=== PATIENT | female | born 1960 | race Caucasian/White ===

== ENCOUNTER → 2018-01-28 07:49 | Outpatient (CLI) | payer OTHER, SELFPAY ==
[2018-01-28 08:08] LABS: Add Manual Diff / Slide Review NO; Basophils Percent Auto 0.6 % (0-2); Eosinophils Percent Auto 3.2 % (2-4); Hematocrit 36.5 % (36-46); Hemoglobin 12.9 g/dL (12.0-16.0); Mean Corpuscular HGB Conc 35.4 % (30-36); Mean Corpuscular Hemoglobin 34.5 PG (26-34); Mean Corpuscular Volume 97.5 fL (80-100); Monocytes Percent Auto 10.4 % (3-14); Neutrophils Absolute Auto 3300 /uL (3000-5900); Neutrophils Percent Auto 57.8 % (50-75); Platelet Count 303 X10^3/uL (150-400); Red Blood Cell Count 3.75 X10^6/uL (4.0-5.2); Red Cell Distribution Width 12.2 % (11.6-14.8); White Blood Cell Count 5.7 X10^3/uL (4.5-11.0)
[2018-01-28 08:34] LABS: Alanine Aminotransferase 47 IU/L (9-52); Albumin 4.4 g/dL (3.5-5.0); Albumin Globulin Ratio 1.4 (1.0-2.8); Alkaline Phosphatase 63 U/L (38-126); Aspartate Aminotransferase 34 IU/L (14-36); Bilirubin Total 0.6 mg/dL (0.2-1.3); Calcium 9.6 mg/dL (8.4-10.2); Estimated Glomerular Filt Rate > 60.0 mL/min (>60); Globulin 3.2 g/dL (1.7-4.1); Glucose 92 mg/dL (70-100); HEMOLYSIS < 15 (0-50); Potassium 3.9 mmol/L (3.4-5.1); Sodium 138 mmol/L (137-145); Total Protein 7.6 g/dL (6.3-8.2)
[2018-01-29 16:39] LABS: Cancer Antigen 27.29 37 U/mL (< 38)
--- NOTE | 2018-02-16 12:12 | PC.NURSE ---
Call from patient. She saw Virgen in December and discussed possibly starting Tamoxifen. She is calling to notify Virgen that she has decided to go ahead with Tamoxifen. She will need a prescription sent to [facility] in [place]. Also, patient states she has no follow up appointment. Message in to Virgen requesting Tamoxifen Rx and follow up schedule.
--- NOTE | 2018-02-23 16:14 | PC.NURSE ---
Spoke with pt. She started her Tamoxifen today 02/23. Transferred her to scheduling to make appt to see Virgen in 6-8 weeks per Virgen's request.
== END ==
PROVIDERS: PCP Physician Assistant; Visit Provider Nurse Practitioner Gerontology
DX: C50.912 Malignant neoplasm of unspecified site of left female breast (principal)
CPT/HCPCS: 36415; 80053; 85025; 86300

== ENCOUNTER → 2018-04-14 07:51 | Outpatient (CLI) | payer OTHER, SELFPAY ==
[2018-04-14 08:06] LABS: Add Manual Diff / Slide Review NO; Basophils Percent Auto 0.7 % (0-2); Eosinophils Percent Auto 2.9 % (2-4); Hematocrit 36.1 % (36-46); Hemoglobin 12.7 g/dL (12.0-16.0); Lymphocytes Percent Auto 29.5 % (25-40); Mean Corpuscular HGB Conc 35.1 % (30-36); Mean Corpuscular Hemoglobin 34.6 PG (26-34); Mean Corpuscular Volume 98.6 fL (80-100); Monocytes Percent Auto 9.4 % (3-14); Neutrophils Absolute Auto 3400 /uL (3000-5900); Neutrophils Percent Auto 57.5 % (50-75); Platelet Count 289 X10^3/uL (150-400); Red Blood Cell Count 3.67 X10^6/uL (4.0-5.2); Red Cell Distribution Width 11.9 % (11.6-14.8)
[2018-04-14 08:41] LABS: Alanine Aminotransferase 40 IU/L (9-52); Albumin 4.2 g/dL (3.5-5.0); Albumin Globulin Ratio 1.4 (1.0-2.8); Alkaline Phosphatase 53 U/L (38-126); Aspartate Aminotransferase 32 IU/L (14-36); BUN Creatinine Ratio 17.8 (6-22); Bilirubin Total 0.6 mg/dL (0.2-1.3); Blood Urea Nitrogen 16 mg/dL (7-17); Calcium 9.4 mg/dL (8.4-10.2); Carbon Dioxide 28 mmol/L (22-32); Chloride 101 mmol/L (98-107); Estimated Glomerular Filt Rate > 60.0 mL/min (>60); Globulin 3.1 g/dL (1.7-4.1); Glucose 101 mg/dL (70-100); HEMOLYSIS < 15 (0-50); Potassium 4.3 mmol/L (3.4-5.1); Sodium 139 mmol/L (137-145); Total Protein 7.3 g/dL (6.3-8.2)
[2018-04-15 15:47] LABS: Cancer Antigen 27.29 39 U/mL (< 38)
== END ==
PROVIDERS: PCP Physician Assistant; Visit Provider Nurse Practitioner Gerontology
DX: C50.912 Malignant neoplasm of unspecified site of left female breast (principal)
CPT/HCPCS: 36415; 80053; 85025; 86300

== ENCOUNTER → 2018-05-09 07:35 | Outpatient (CLI) | payer OTHER, SELFPAY ==
--- NOTE | 2018-05-09 | DI.MG.S_ITS ---
BILATERAL DIGITAL SCREENING MAMMOGRAM 3D/2D WITH CAD: 05/09/2018 CLINICAL: Routine screening. Personal history of breast cancer. Comparison is made to exams dated: 05/05/2017 mammogram, 05/04/2016 mammogram, and 04/25/2015 mammogram - [facility]. There are scattered fibroglandular elements in both breasts. Current study was also evaluated with a Computer Aided Detection (CAD) system. There are post operative findings in the left breast. No significant masses, calcifications, or other findings are seen in either breast. There has been no significant interval change. IMPRESSION: NEGATIVE There is no mammographic evidence of malignancy. A 1 year screening mammogram is recommended. This exam was interpreted at Station ID: [id number]. NOTE: For mammograms, a report in lay terms will be sent to the patient. Approximately 15% of breast malignancies will not be visualized mammographically. In the management of a palpable breast mass, a negative mammogram must not discourage biopsy of a clinically suspicious lesion. Electronically Signed By: Marion wooten/bre:05/09/2018 09:24:36 letter sent: Normal Exam ACR BI-RADS Category 1: Negative [id number]
== END ==
PROVIDERS: PCP Physician Assistant; Visit Provider Physician Assistant
DX: Z12.31 Encounter for screening mammogram for malignant neoplasm of breast (principal); Z80.3 Family history of malignant neoplasm of breast
CPT/HCPCS: 77063; 77067

== ENCOUNTER → 2018-06-07 17:01 | Outpatient (CLI) | payer OTHER, SELFPAY ==
--- NOTE | 2018-06-07 | DI.RAD.S_ITS ---
PROCEDURE: XR KNEE RT 3V INDICATIONS: PAIN TECHNIQUE: 3 views of the knee were acquired. COMPARISON: None. FINDINGS: Bones: No fractures or dislocations. Degenerative spurring is present. There is narrowing of the lateral patellofemoral joint space No suspicious bony lesions. Soft tissues: No joint effusion. No suspicious soft tissue calcifications. IMPRESSION: Mild right knee joint degeneration primarily involving the patellofemoral compartment. Dictated by: Chato Ford M.D. on 06/08/2018 at 9:19 Approved by: Chato Ford M.D. on 06/08/2018 at 9:27
--- NOTE | 2018-06-07 | DI.RAD.S_ITS ---
PROCEDURE: XR KNEE LT 3V INDICATIONS: PAIN IN LEFT KNEE TECHNIQUE: 3 views of the knee were acquired. COMPARISON: [facility], CR, XR KNEE RT 3V, 06/07/2018, 16:53. FINDINGS: Bones: No fractures or dislocations. No suspicious bony lesions. Diffuse degenerative spurring. Mild narrowing of the patellofemoral joint space Soft tissues: No joint effusion. No suspicious soft tissue calcifications. IMPRESSION: Mild left knee joint degeneration. Dictated by: Chato Ford M.D. on 06/08/2018 at 8:58 Approved by: Chato Ford M.D. on 06/08/2018 at 9:00
== END ==
PROVIDERS: PCP Physician Assistant; Visit Provider Physician Assistant
DX: M17.0 Bilateral primary osteoarthritis of knee (principal); M25.562 Pain in left knee; M25.561 Pain in right knee
CPT/HCPCS: 73562

== ENCOUNTER → 2018-09-02 11:24 | Outpatient (CLI) | payer OTHER, SELFPAY ==
[2018-09-02 11:42] LABS: Bacteria Urine None Seen; RBC Urine None Seen (0-5/HPF); WBC Urine None Seen (0-5/HPF)
[2018-09-02 12:08] LABS: Add Manual Diff / Slide Review NO; Basophils Percent Auto 0.9 % (0-2); Eosinophils Percent Auto 1.7 % (2-4); Hematocrit 36.9 % (36-46); Hemoglobin 12.7 g/dL (12.0-16.0); Lymphocytes Percent Auto 26.3 % (25-40); Mean Corpuscular HGB Conc 34.3 % (30-36); Mean Corpuscular Hemoglobin 33.7 PG (26-34); Mean Corpuscular Volume 98.1 fL (80-100); Monocytes Percent Auto 8.3 % (3-14); Neutrophils Absolute Auto 4900 /uL (3000-5900); Neutrophils Percent Auto 62.8 % (50-75); Platelet Count 291 X10^3/uL (150-400); Red Blood Cell Count 3.77 X10^6/uL (4.0-5.2); Red Cell Distribution Width 11.7 % (11.6-14.8); White Blood Cell Count 7.8 X10^3/uL (4.5-11.0)
[2018-09-02 12:18] LABS: Hemoglobin A1C% w Est Avg Glu 5.6 % (4.0-6.0)
[2018-09-02 12:49] LABS: BUN Creatinine Ratio 16.7 (6-22); Blood Urea Nitrogen 15 mg/dL (7-17); Calcium 9.5 mg/dL (8.4-10.2); Carbon Dioxide 26 mmol/L (22-32); Chloride 103 mmol/L (98-107); Estimated Glomerular Filt Rate > 60.0 mL/min (>60); Glucose 89 mg/dL (70-100); HEMOLYSIS < 15 (0-50); Potassium 4.1 mmol/L (3.4-5.1); Sodium 142 mmol/L (137-145)
[2018-09-02 15:45] LABS: Appearance Urine UA CLEAR; Bilirubin Urine UA NEGATIVE (NEGATIVE); Color Urine UA YELLOW; Glucose Urine UA NEGATIVE (Normal); Ketones Urine UA NEGATIVE (NEGATIVE); Leukocyte Esterase Urine UA NEGATIVE (NEGATIVE); Nitrite Urine UA NEGATIVE (Negative); Occult Blood Urine UA NEGATIVE (Negative); Protein Urine UA NEGATIVE (Negative); Specific Gravity Urine UA <=1.005 (1.000-1.035); Urobilinogen Urine UA 0.2 E.U./dL (0.2)
[2018-09-02 15:48] LABS: Culture Indicated Urine Cult Not Indicated; Transitional Epi Cells Urine 5-10/HPF (0-5/HPF)
== END ==
PROVIDERS: PCP Physician Assistant; Visit Provider Orthopaedic Surgery
DX: Z01.818 Encounter for other preprocedural examination (principal); R73.9 Hyperglycemia, unspecified
CPT/HCPCS: 36415; 80048; 81001; 83036; 85025; 93005; 93010

== ENCOUNTER 2018-10-04 11:39 | Inpatient (IN) | payer OTHER, SELFPAY ==
[2018-09-23 08:55] VITALS: BMI 37.5
[2018-10-04] VITALS (16 sets, daily range): BP systolic 112–151; BP diastolic 69–90; PULSE 68–98; RESP 12–21; TEMP 36.4–37.2; O2SAT 94–100; BMI 37.5
--- NOTE | 2018-10-04 | DI.RAD.S_ITS ---
PROCEDURE: XR PELVIS 1-2V INDICATIONS: INTRA OPERATIVE LEFT HIP TECHNIQUE: Intra-operative view of the pelvis and hip acquired. COMPARISON: [facility], CT, CHEST/ABDOMEN WITH CONTRAST, 05/08/2014, 12:10. FINDINGS: Bones: Intraoperative devices prior to placement of arthroplasty prostheses are in expected positions. No fractures or suspicious bony lesions. Soft tissues: Overlying surgical retractors are present, along with other intraoperative changes. IMPRESSION: Normal intraoperative examination. Dictated by: Henok Velasco M.D. on 10/04/2018 at 16:24 Approved by: Henok Velasco M.D. on 10/04/2018 at 16:25
--- NOTE | 2018-10-04 | DI.RAD.S_ITS ---
PROCEDURE: XR HIP W PEL IF DONE LT 2V INDICATIONS: TOTAL LEFT HIP TECHNIQUE: AP pelvis and lateral view of the left hip acquired. COMPARISON: [facility], [place], XR PELVIS 1-2V, 10/04/2018, 16:48. FINDINGS: Bones: Patient is status post left hip arthroplasty, with hardware components in expected positions. The hip joint appears congruent. The visualized bony structures appear intact. Soft tissues: Overlying postoperative changes are noted. No suspicious soft tissue densities. IMPRESSION: Expected appearance of left hip arthroplasty. Dictated by: Randolph Bergeron M.D. on 10/04/2018 at 18:40 Approved by: Randolph Bergeron M.D. on 10/04/2018 at 18:41
[2018-10-04] MEDS: LACTATED RINGERS 1,000 ML 42 ML IV ×2 (12:40→16:29)
--- NOTE | 2018-10-04 14:36 | PM.PREOP ---
Pre-operative Note Interval Note History & Physical reviewed/Exam performed by Physician: Yes Changes to H&P: No
--- NOTE | 2018-10-04 14:36 | PM.OP.1 ---
Operative Date/Time/Diagnoses Date of procedure: 10/04/18 Time of procedure: 14:58 Pre-op diagnosis: left hip OA Post-op diagnosis: same Procedure & Clinicians Procedure: left total hip arthroplasty Same procedure as scheduled: Yes Indications: The patient has had progressively worsening left hip pain with radiographic changes consistent with arthritis. Non-operative management has failed and the patient has requested total hip replacement. The risks, benefits and alternatives to surgery were discussed with the patient prior to proceeding. Risks discussed included, but were not limited to, failure to relieve pain, leg length discrepancy, dislocation, stiffness, infection, nerve damage, deep venous thrombosis, pulmonary embolism, stroke, coma, heart attack, permanent paralysis and , as well as the potential need for eventual revision of the prosthetic. Surgeon: Rosa Curiel Electrical Fitter: Radha Corona Anesthesia Type: General and Spinal Operative Notes Findings: Severe left hip osteoarthritis, adequate stability Closure Type: primary Specimen(s): none sent Implants & Drains: [employer] anthology standard offset size 6, 48 mm R3 cup, 32+ 0 head Applied: drain(s) Estimated Blood Loss (mL): 250 Blood products transfused: none Procedure in detail: The patient was seen in the pre-operative area, where the patient identified the left hip as the operative site and this was marked with my initials. The patient received pre-operative antibiotics and was taken to the operating room and placed on the operative table in the right lateral decubitus position after satisfactory anesthesia. A maritime pilot out was performed. The left leg was prepared from the ankle to the iliac crest with ChloroPrep in the usual fashion and draped through sterile drapes. The hip was approached through an approximately 20 cm incision centered over the greater trochanter and curving gently posteriorly as it went proximally. This was carried sharply to the fascia carolina, which was divided and retracted with a self retaining retractor. The trochanteric bursa was excised with care being taken to avoid the sciatic nerve, which was identified and protected throughout the case. The short external rotators were incised and the capsulomuscular flap was raised and tagged for later repair. The hip was dislocated, and a femoral neck osteotomy performed approximately 15 mm above the lesser trochanter. Retractors were placed around the femur. The canal was opened with a box cutting osteotome, followed by a T handled reamer and a lateralizing reamer. The chili pepper broach was then used, followed by sequential broaching until there was good stability of the broach in the femur. Retractors were placed to expose the acetabulum. The labrum and central soft tissues were removed. Reaming was performed initially going up in 2 mm increments, then 1 mm increments until good bite was obtained with an odd sized reamer. The cup 1 mm larger than the last reamer was then inserted using the appropriate anteversion guides. A trial neutral liner was placed. The broach was placed in the canal. A trial head and neck were then placed and the hip relocated and checked for leg length and stability. An intraoperative film confirmed the component position and no evidence of fracture. The patient was stable in the position of sleep, of squatting, and could be put through a range of motion with 45 degrees internal rotation without dislocation. At 90 degrees flexion, internal rotation to 70 ? was possible before dislocation. This was felt to be satisfactory and the appropriate components were opened, and the trials were removed. The acetabular liner was impacted into position. The final stem was then impacted into the prepared femoral canal. A brief Betadine soak was performed while trialing with head options. The hip was meticulously irrigated with a pulse lavage normal saline. Finally the femoral head was impacted onto the stem. The acetabulum was cleared of all material and the hip relocated one final time. The capsulomuscular flap was then repaired to the greater trochanter though an awl hole using the tag sutures. The short external rotators were repaired with a poly nonabsorbable. A deep drain was placed and brought out anteriorly. The fascia carolina was closed with black braided nylon. The subcutaneous layer was closed with barbed sutures and SteriStrips. An Aquacel Ag dressing was applied and the patient was taken to recovery having tolerated the procedure well. Complications: none Condition: stable Disposition: Acute Care Plan for aftercare: The patient will be maintained on a standard total hip replacement protocol with weight bearing as tolerated and posterior hip precautions. The patient will receive Aspirin and sequential compression devices for DVT prophylaxis. The patient will be discharged home when safe for the home environment.
[2018-10-04] MEDS: CEFAZOLIN 2 GM/100 ML FROZ.PIGGY IV ×2 (14:46→22:38)
[2018-10-04] MEDS: TRANEXAMIC ACID 1,000 MG VIAL 1000 MG INJ ×2 (15:22→17:13)
--- NOTE | 2018-10-04 15:39 | SUR.OPER ---
Lateral on padded OR bed. Gel axillary roll. Arms secured on padded armboard with pillow supporting top arm. Padded hip positioner braces x4 - anterior and posterior chest and pelvis. Additional gel pad used anterior pelvis. Gel pad under bottom leg from knee to foot and secured with tape over sheet.
[2018-10-04] MEDS: BUPIVACAINE 0.25% W/ EPI VIAL 50 ML INJ (15:47)
[2018-10-04] MEDS: BUPIVACAINE LIPOSOME 266 MG/20 ML VIAL INJ (15:48)
[2018-10-04] MEDS: POVIDONE-IODINE 15 ML, SODIUM CHLORIDE 0.9% 250 ML TOP (15:48)
[2018-10-04] MEDS: SODIUM CHLORIDE IRRIG SOLUTION 250 ML, EPINEPHrine 1 MG IRR (16:18)
[2018-10-04] MEDS: VANCOMYCIN 1,000 MG/200 ML FROZ.PIGGY 200 MG IV (16:30)
--- NOTE | 2018-10-04 16:54 | SUR.OPER ---
Notified by pre-op RNApple that Vanco was missed pre-op, Dr. Curiel notified and Vanco started at 1630 per her verbal order
[2018-10-04] MEDS: ONDANSETRON 4 MG/2 ML INJ IV ×2 (18:13→21:32)
--- NOTE | 2018-10-04 18:16 | SUR.PHASEI ---
1813 C/O nausea - Rx given
--- NOTE | 2018-10-04 19:02 | SUR.PHASEI ---
184 late entry - Report called to acute care RN. Patient A&O, pleasant, denies pain/nausea. Ice pack remains on site w/hemovac and HEVER. Dr. James visited with the patient approx. 1839. Slight motion/sensation in LE, but no pain. Patient wearing glasses; clothing bag and HEVER to room with the patient. Patient very happy with care, stated that she would like to take this RN home with her. No questions/concerns. Transported to room by OR staff.
[2018-10-04] MEDS: LACTATED RINGERS 1,000 ML 125 ML IV (19:35)
[2018-10-04] MEDS: ASPIRIN EC 81 MG TABLET PO (21:34)
[2018-10-04] MEDS: DOCUSATE 100 MG CAPSULE PO (21:34)
[2018-10-04] MEDS: ACETAMINOPHEN 325 MG TABLET 975 MG PO (21:35)
--- NOTE | 2018-10-04 22:58 | PC.NURSE ---
OSCAR 10/04 2258; pt arrived from PACU at 1900, alert and oriented and VSS on RA, denied pain and stated to have returning sensation in toes with tingling sensation present and able to manipulate lower extremities on command. pt instructed and encouraged to try to urinate by 29, on coming RN notified of urinary status.
[2018-10-04] MEDS: OXYCODONE IR 5 MG TABLET PO (23:25)
[2018-10-05] VITALS (7 sets, daily range): BP systolic 105–131; BP diastolic 59–77; PULSE 71–85; RESP 16–20; TEMP 36.6–37.1; O2SAT 95–98
[2018-10-05] MEDS: ONDANSETRON 4 MG/2 ML INJ IV (00:33)
[2018-10-05] MEDS: LACTATED RINGERS 1,000 ML 125 ML IV (04:01)
[2018-10-05 05:53] LABS: Hematocrit 29.3 % (36-46); Hemoglobin 10.6 g/dL (12.0-16.0)
[2018-10-05] MEDS: OXYCODONE IR 5 MG TABLET PO ×5 (06:30→22:40)
[2018-10-05] MEDS: CEFAZOLIN 2 GM/100 ML FROZ.PIGGY IV (06:31)
[2018-10-05] MEDS: CHOLECALCIFEROL (VITAMIN D3) 1,000 UNIT TABLET 2000 UNIT PO (08:53)
[2018-10-05] MEDS: LORATADINE 10 MG TABLET PO (08:53)
[2018-10-05] MEDS: ACETAMINOPHEN 325 MG TABLET 975 MG PO ×2 (08:53→14:59)
[2018-10-05] MEDS: DOCUSATE 100 MG CAPSULE PO (08:53)
[2018-10-05] MEDS: ASPIRIN EC 81 MG TABLET PO (08:54)
[2018-10-05] MEDS: CYANOCOBALAMIN (VITAMIN B-12) 500 MCG TABLET 1000 MCG PO (08:54)
[2018-10-05] MEDS: hydroCHLOROthiazide 12.5 MG CAPSULE PO (08:54)
[2018-10-05] MEDS: TAMOXIFEN 10 MG TABLET PO (08:54)
[2018-10-05] MEDS: LISINOPRIL 20 MG TABLET PO (08:54)
--- NOTE | 2018-10-05 09:10 | PT.IIE ---
Current Diagnoses Unilateral primary osteoarthritis, left hip (10/04/18) Presence of unspecified artificial hip joint (10/04/18) Surgery Performed Operation Date: 10/04/18 13:45 Actual Procedures p Total Hip Arthroplasty(Left) - Rosa Curiel MD Surgical History (Last Updated 09/06/18 @ 13:57 by Rachelle Rasheed RN) Hx of hernia repair (Acute) S/P lumpectomy, left breast (Acute 05/23/14) Medical History (Last Updated 09/06/18 @ 14:13 by Rachelle Rasheed RN) Acid reflux (Acute) Breast cancer, left (Acute) HTN (hypertension) (Acute) Osteoarthritis (Acute) Seasonal allergies (Acute) Situational anxiety (Acute) Physical Therapy Inpatient Evaluation/Re-Eval M1 PT/OT-IP Prior Functional Status Start: 10/04/18 16:58 Freq: NEEDED Status: Active Protocol: Document 10/05/18 09:10 AB (Rec: 10/05/18 12:51 AB [id number]) Medical Review Prior Functional Status Medical History Reviewed Yes Communication able to make need known Mobility and Gait pt stated that she is independent with all mobilities and ambulation without AD Social History Household Members spouse Living Arrangements House Number of Floors (Floors) Two Floors Number of Stairs To Enter/Railing? pt will stay on main level of the house but has 2 steps with R rail ascending to get to bedroom; has 2 steps to enter without rails Home Environment Walk in Shower Home Equipment Front Wheel Walker Straight Cane Raised Toilet Seat w/Armrests Hand Held Shower Senior Visual Designer Sock Aid Additional Social History Comment has a shower chair but is not set up stated that her niece will be staying with them to assist her at home for ~ 1 week M2 PT-IP Current Condition Start: 10/04/18 16:58 Freq: NEEDED Status: Active Protocol: Document 10/05/18 09:10 AB (Rec: 10/05/18 12:51 AB [id number]) Physical Therapy Current Condition Current Condition Evaluation Date 10/05/18 Treatment Diagnosis s/p L JOE; difficulty in walking Onset Date 10/04/18 Precautions Posterior Hip Precautions No Hip Flexion > 90 degrees No Hip Internal Rotation No Hip Adduction Other Precautions BP Weight Bearing Status Weight Bearing Status Weight Bear as Tolerated M3 PT-IP Subjective Start: 10/04/18 16:58 Freq: NEEDED Status: Active Protocol: Document 10/05/18 09:10 AB (Rec: 10/05/18 12:51 AB [id number]) Subjective Physical Therapy Visit Type Type Initial Evaluation Visit Start Time 09:10 Visit Stop Time 10:12 Total Visit Minutes 62 Number of DUST COLLECTOR Visits 0 Physical Therapy Visit Comments Patient Comments pt agreeable to do PT Therapy Pain Assessment Pain When Pain Assessed At Rest Pain Present Pain Present Pain Reported Location Left Hip Intensity 1 Scale Used pain increases to 4/10 with mobility Pain Management Techniques Apply Cold Re-positioning Timing of Activity with Medications M4 PT-IP Mobility and Gait Start: 10/04/18 16:58 Freq: NEEDED Status: Active Protocol: Document 10/05/18 09:10 AB (Rec: 10/05/18 12:51 AB [id number]) PT-Bed Mobility Assessment Supine to Sit Supine to Sit Minimal Assistance 1 Person Assistance PT-Transfer Assessment Sit to and From Stand Sit to and from Stand Moderate Assistance 1 Person Assistance Equipment Transfer Assistive Device Gait Belt Front Wheeled Walker Orthotic/Prosthetic Devices or Brace: No Transfers Transfer Destination Chair Transfer Technique pt ambulated to the chair using FWW Comments Mobility Comments BP in supine with HOB elevated 123/73. pt c/o dizziness sitting on EOB. BP: 130/19. dizziness dissipated after a few seconds and agreed to ambulate. BP after ambulation : 112/41. pt. c/o feeling sweaty. informed nurse regarding BP. Gait Assessment Gait Gait Assistance Required: Moderate Assistance Distance (Feet) 10 Able to Maintain Weight Bearing Status Yes During Gait Assistive Devices Assistive Device Gait Belt Front Wheeled Walker Orthotic/Prosthetic Devices or Brace: No Gait Deviations General Gait Pattern Antalgic Decreased Stride Length Decreased Feet Clearance Step-to Gait Factors Limiting Gait Function Factors Limiting Gait Function Decreased Activity Tolerance Decreased Strength Limited Range of Motion Pain Poor Balance Poor Safety Awareness PT-Balance Assessment Sitting Balance and Reactions Static Sitting Balance Ability Good Dynamic Sitting Balance Ability Good Standing Balance and Reactions Static Standing Balance Ability Fair Dynamic Standing Balance Ability Fair Device Used FWW M5 PT-IP Objective Assessments Start: 10/04/18 16:58 Freq: NEEDED Status: Active Protocol: Document 10/05/18 09:10 AB (Rec: 10/05/18 12:51 AB [id number]) Orientation Orientation/Cognition Level of Alertness Alert Orientation Name Age Birthday Year Place Situation Safety Awareness Decreased Safety Awareness Gross Range of Motion Lower Extremity ROM Assessment Within Functional Limits Strength Lower Extremity Strength Assessment Left Impaired Hip 3-/5 Knee 3+/5 Sensation Assessment Sensation Gross Sensation WNL Muscle Tone Muscle Tone WNL Yes M6 PT-IP Treatment Start: 10/04/18 16:58 Freq: NEEDED Status: Active Protocol: Document 10/05/18 09:10 AB (Rec: 10/05/18 12:51 AB [id number]) Physical Therapy Treatment Exercises Exercises Quad Sets Heel Slides Education Education Provided Precautions Weight Bearing Status Post-Op Packet Safety Other Treatments Other Treatment Performed reviewed and educated pt and spouse regarding posterior hip precautions M7 PT-IP Assessment and Plan Start: 10/04/18 16:58 Freq: NEEDED Status: Active Protocol: Document 10/05/18 09:10 AB (Rec: 10/05/18 12:51 AB [id number]) PT Summary Assessment and Plan Potential Rehabilitation Potential Good Status of Condition at Evaluation Evolving Summary Impairments Pain ROM Strength Balance Coordination Sensation Tone Cognition Bed Mobility Transfers Gait Activity Tolerance Assessment Summary pt requiring 1 person mod A with mobility. d/c plan depending on progress. will conduct caregiver training when appropriate and stair climbing training. will continue to assess but at this time may require SNF rehab. Goals Bed Mobility Goal Standby Assistance Transfer Goal Standby Assistance Front Wheeled Walker Gait Goal Standby Assistance Front Wheel Walker Gait Distance 150 Other Goals up/down 2 steps without rail CGA Days to Meet Goals 5 Frequency of Treatment Frequency Of Treatment Twice a Day Treatment Plan Physical Therapy Treatment Plan Bed Mobility Training Transfer Training Gait Training Therapeutic Exercise Balance Retraining Post Op Education Discharge Planning Hot or Cold Pack Neuromuscular Re-ed Coordination Retraining Manual Therapy Other Recommendations and Next Treatment ambulation, caregiver training Focus Recommendations To Nursing Amount of Assist Needed 1 Person Assist Discharge Recommendations PT Discharge Recommendations Home with Assistance Outpatient PT Other Discharge Recommendations d/c plan depending on progress : SNF vs home with assist/ homehealth PT or outpt PT depending on level of assistance
--- NOTE | 2018-10-05 09:13 | PM.PNPO.1 ---
Subjective Date Patient Seen: 10/05/18 Time Patient Seen: 09:14 Interval history: POD #1 s/p left JOE posterior approach with Dr. Curiel. Patient's pain was well controlled last night. She has not worked with PT yet, but has ambulated to the commode. She lives with her at home. Exam Vital Signs (past 8 hours): - 10/05/18 04:00 10/05/18 08:00 Temperature 97.9 F 97.8 F Pulse Rate 74 75 Respiratory Rate 16 18 Blood Pressure 131/72 121/77 Pulse Oximetry 97 98 Oxygen Delivery Method Room Air Oxygen Flow Rate 0 Narrative Exam Narrative: Patient lying in bed in NAD. She is alert and oriented X3. HEVER Dressing on left hip is CDI. Hemovac in place. Her calves are soft, compressible, and nontender bilaterally. She is able to actively dorsiflex and plantarflex. Objective Labs Result Diagrams: 10/05/18 05:37 Labs: Laboratory Results - last 24 hr 10/05/18 05:37 Hgb 10.6 L Hct 29.3 L Assessment & Plan Post-op (1) S/P total hip arthroplasty: Current Visit: Yes Status: Acute Postoperative Procedures Operation Date: 10/04/18 13:45 Actual Procedures Side Surgeon p Total Hip Arthroplasty Left Rosa Curiel MD Patient will mobilize with PT today. Follow posterior hip precautions. Continue ASA for VTE prophylaxis. Continue current pain management. She will DC once mobilizing safely, and pain adequately controlled likely today or tomorrow.
--- NOTE | 2018-10-05 09:17 | P.PN_ITS ---
Subjective Date Patient Seen: 10/05/18 Time Patient Seen: 09:14 Interval history: POD #1 s/p left JOE posterior approach with Dr. Curiel. Patient 's pain was well controlled last night. She has not worked with PT yet, but has ambulated to the commode. She lives with her at home. Exam Vital Signs (past 8 hours): - 10/05/18 04:00 10/05/18 08:00 Temperature 97.9 F 97.8 F Pulse Rate 74 75 Respiratory Rate 16 18 Blood Pressure 131/72 121/77 Pulse Oximetry 97 98 Oxygen Delivery Method Room Air Oxygen Flow Rate 0 Narrative Exam Narrative: Patient lying in bed in NAD. She is alert and oriented X3. HEVER Dressing on left hip is CDI. Hemovac in place. Her calves are soft, compressible , and nontender bilaterally. She is able to actively dorsiflex and plantarflex. Objective Labs Result Diagrams: 10/05/18 05:37 Labs: Laboratory Results - last 24 hr 10/05/18 05:37 Hgb 10.6 L Hct 29.3 L Assessment & Plan Post-op (1) S/P total hip arthroplasty: Current Visit: Yes Status: Acute Postoperative Procedures Operation Date: 10/04/18 13:45 Actual Procedures Side Surgeon p Total Hip Arthroplasty Left Rosa Curiel MD Patient will mobilize with PT today. Follow posterior hip precautions. Continue ASA for VTE prophylaxis. Continue current pain management. She will DC once mobilizing safely, and pain adequately controlled likely today or tomorrow.
--- NOTE | 2018-10-05 10:41 | PC.NURSE ---
Addendum entered by eBe Quiñones R.N. 10/05/18 12:40: this RN assisted pt to BSC needs lots of cuing for hip precations and no twisting. Voided 700cc clear yellow urine. Pt reports slight dizziness when getting up but that it has improved since this morning. Assisted back to bed, call light within reach and ice packs placed to left hip. Nemo dressing is CDI at this time with green light flashing. Original Note: Addendum entered by Bee Quiñones R.N. 10/05/18 12:20: IV bolus completed. Original Note: Addendum entered by Bee Quiñones R.N. 10/05/18 11:15: called spoke with Jyotsna GALLOWAY received vto to discontinue d/c order, give NS 500ml bolus over 1 hour for dizziness. Original Note: Day shift pt is A&O able to make needs known. Nemo dressing to left hip is CDI with green light flashing, hemo vac in place. Pt c/o feeling lightheaded getting up with therapy. After pt in chair rechecked B/P 127/79 p 76 reports resolving. IV SL this am, encouraged fluids, pt is using I.S. at bedside. c/o pain 5/10 with movement medicated with oxycodone. Sitting up in chair, call light with in reach and spouse at bedside.
[2018-10-05] MEDS: SODIUM CHLORIDE 0.9% 500 ML IV (11:16)
--- NOTE | 2018-10-05 14:30 | PT.IPTN ---
Current Diagnoses Unilateral primary osteoarthritis, left hip (10/04/18) Presence of unspecified artificial hip joint (10/04/18) Surgery Performed Operation Date: 10/04/18 13:45 Actual Procedures p Total Hip Arthroplasty(Left) - Rosa Curiel MD Physical Therapy Treatment Note M2 PT-IP Current Condition Start: 10/04/18 16:58 Freq: NEEDED Status: Active Protocol: Document 10/05/18 09:10 AB (Rec: 10/05/18 12:51 AB [id number]) Physical Therapy Current Condition Current Condition Evaluation Date 10/05/18 Treatment Diagnosis s/p L JOE; difficulty in walking Onset Date 10/04/18 Precautions Posterior Hip Precautions No Hip Flexion > 90 degrees No Hip Internal Rotation No Hip Adduction Other Precautions BP Weight Bearing Status Weight Bearing Status Weight Bear as Tolerated M3 PT-IP Subjective Start: 10/04/18 16:58 Freq: NEEDED Status: Active Protocol: Document 10/05/18 14:30 AB (Rec: 10/05/18 15:43 AB [id number]) Subjective Physical Therapy Visit Type Type Treatment Note Visit Start Time 14:30 Visit Stop Time 15:13 Total Visit Minutes 43 Number of DIRECTOR MOTION PICTURE Visits 0 Physical Therapy Visit Comments Patient Comments pt agreeable to do PT. pt's niece present for caregiver training. Therapy Pain Assessment Pain When Pain Assessed At Rest Pain Present Pain Present Pain Reported Location Left Hip Intensity 2 Scale Used Numeric (1 - 10) Pain Management Techniques Apply Cold Timing of Activity with Medications M4 PT-IP Mobility and Gait Start: 10/04/18 16:58 Freq: NEEDED Status: Active Protocol: Document 10/05/18 14:30 AB (Rec: 10/05/18 15:43 AB [id number]) PT-Bed Mobility Assessment Sit to Supine Sit to Supine Minimal Assistance 1 Person Assistance PT-Transfer Assessment Sit to and From Stand Sit to and from Stand Contact Guard Assistance 1 Person Assistance Use of Upper Extremities Equipment Transfer Assistive Device Gait Belt Front Wheeled Walker Orthotic/Prosthetic Devices or Brace: No Transfers Transfer Destination Bed Comments Mobility Comments caregiver training conducted. educated pt's niece regarding L posterior hip precautions, use of safety belt and how to assist pt with bed mobility, transfers and ambulation. BP sitting on chair at start of tx: 113/69. pt completed sit to stand CGA with niece providing assistance and was able to assist pt safely. pt stood up for ~ 1 min using FWW for support and pt c/o dizziness. BP checked: 102/51 . instructed pt to sit down. BP checked after 1 min : 101/ 61. dizziness decreasing. BP checked again after 2 min sitting on chair: 110/71. pt completed sit to stand again and ambulation with niece assisting and was able to ambulate ~ 8 ft using FWW CGA and cues. pt ambulated back to bed. pt continues to have antalgic gait with increase L genu valgum. pt completed sit to supine min A to elevate LLE up. pt stated that she feels ok. BP in supine after ambulation: 124/77. educated pt's niece with proper bed positioning to adhere to hip precautions. inform pt's family regarding concerns for stair climbing and spouse stated that he can put a ramp in. Gait Assessment Gait Gait Assistance Required: Contact Guard Assist Distance (Feet) 8 Able to Maintain Weight Bearing Status Yes During Gait Assistive Devices Assistive Device Gait Belt Front Wheeled Walker Orthotic/Prosthetic Devices or Brace: No Gait Deviations General Gait Pattern Antalgic Decreased Stride Length Decreased Feet Clearance Step-to Gait Factors Limiting Gait Function Factors Limiting Gait Function Decreased Activity Tolerance Decreased Strength Difficulty Following Directions Limited Range of Motion Pain Poor Balance Poor Safety Awareness Comments Gait Comments pt with increase L genu valgum affecting ambulation M5 PT-IP Objective Assessments Start: 10/04/18 16:58 Freq: NEEDED Status: Active Protocol: Document 10/05/18 09:10 AB (Rec: 10/05/18 12:51 AB [id number]) Orientation Orientation/Cognition Level of Alertness Alert Orientation Name Age Birthday Year Place Situation Safety Awareness Decreased Safety Awareness Gross Range of Motion Lower Extremity ROM Assessment Within Functional Limits Strength Lower Extremity Strength Assessment Left Impaired Hip 3-/5 Knee 3+/5 Sensation Assessment Sensation Gross Sensation WNL Muscle Tone Muscle Tone WNL Yes M6 PT-IP Treatment Start: 10/04/18 16:58 Freq: NEEDED Status: Active Protocol: Document 10/05/18 14:30 AB (Rec: 10/05/18 15:43 AB [id number]) Physical Therapy Treatment Education Education Provided Precautions Weight Bearing Status Post-Op Packet Safety Other Treatments Other Treatment Performed caregiver training conducted with pt and pt's niece: use of safety belt, L post hip precautions, assisting with bed mobility, transfers and ambulation M7 PT-IP Assessment and Plan Start: 10/04/18 16:58 Freq: NEEDED Status: Active Protocol: Document 10/05/18 14:30 AB (Rec: 10/05/18 15:43 AB [id number]) PT Summary Assessment and Plan Potential Rehabilitation Potential Good Summary Impairments Pain ROM Strength Balance Coordination Sensation Tone Cognition Bed Mobility Transfers Gait Activity Tolerance Progress Towards Goals Slow Progress due to Activity Tolerance Assessment Summary caregiver training initiated with pt's niece and further training is needed especially for stair climbing. pt continues to have decrease activity tolerance with decrease in BP with upright activities. pt's niece and spouse will be in tomorrow morning at ~ 9 am for further caregiver training. will continue to assess. Goals Bed Mobility Goal Standby Assistance Transfer Goal Standby Assistance Front Wheeled Walker Gait Goal Standby Assistance Front Wheel Walker Gait Distance 150 Other Goals up/down 2 steps without rail CGA Days to Meet Goals 5 Frequency of Treatment Frequency Of Treatment Twice a Day Treatment Plan Physical Therapy Treatment Plan Bed Mobility Training Transfer Training Gait Training Therapeutic Exercise Balance Retraining Post Op Education Discharge Planning Hot or Cold Pack Neuromuscular Re-ed Coordination Retraining Manual Therapy Other Recommendations and Next Treatment ambulation, caregiver training Focus at 9 am 10/06/18 Recommendations To Nursing Amount of Assist Needed 1 Person Assist Discharge Recommendations PT Discharge Recommendations Home with Assistance Outpatient PT Other Discharge Recommendations d/c plan depending on progress : SNF vs home with assist/ homehealth PT or outpt PT depending on level of assistance
--- NOTE | 2018-10-05 17:07 | PC.NURSE ---
Addendum entered by Henna Porter R.N. 10/05/18 21:32: Pt had relatively uneventful evening. Med at 1900 for discomfort w/good relief. HEVER dsg CDI. HV intact/patent. Satisfactory postop course. Continue w/plan of care. Original Note: Pt resting quietly Lungs clear, SpO2 = 97% RA HL in right wrist intact/paten. HEVER Dsg to left hip CDI Hemavac intact/patent. Stable post op course.
[2018-10-05] MEDS: IBUPROFEN 600 MG TABLET PO (19:58)
[2018-10-06] MEDS: OXYCODONE IR 5 MG TABLET PO ×6 (04:42→23:42)
[2018-10-06 04:44] VITALS: BP 100/74; PULSE 72; RESP 18; TEMP 36.6; O2SAT 97
[2018-10-06 08:00] VITALS: BP 116/72; PULSE 78; RESP 18; TEMP 36.9; O2SAT 100
--- NOTE | 2018-10-06 08:11 | PC.NURSE ---
Patient 1 assist to BR. Desires to go home. Exhibits good post op care routine. Percolone effective for pain.
[2018-10-06] MEDS: ACETAMINOPHEN 325 MG TABLET 975 MG PO ×3 (08:41→21:54)
[2018-10-06] MEDS: ASPIRIN EC 81 MG TABLET PO ×2 (08:42→21:55)
[2018-10-06] MEDS: CYANOCOBALAMIN (VITAMIN B-12) 500 MCG TABLET 1000 MCG PO (08:42)
[2018-10-06] MEDS: LORATADINE 10 MG TABLET PO (08:42)
[2018-10-06] MEDS: TAMOXIFEN 10 MG TABLET PO ×2 (08:42→21:55)
[2018-10-06] MEDS: CHOLECALCIFEROL (VITAMIN D3) 1,000 UNIT TABLET 2000 UNIT PO (08:42)
[2018-10-06] MEDS: DOCUSATE 100 MG CAPSULE PO ×2 (08:42→21:55)
--- NOTE | 2018-10-06 09:20 | PT.IPTN ---
Current Diagnoses Unilateral primary osteoarthritis, left hip (10/04/18) Presence of unspecified artificial hip joint (10/04/18) Surgery Performed Operation Date: 10/04/18 13:45 Actual Procedures p Total Hip Arthroplasty(Left) - Rosa Curiel MD Physical Therapy Treatment Note M2 PT-IP Current Condition Start: 10/04/18 16:58 Freq: NEEDED Status: Active Protocol: Document 10/05/18 09:10 AB (Rec: 10/05/18 12:51 AB [id number]) Physical Therapy Current Condition Current Condition Evaluation Date 10/05/18 Treatment Diagnosis s/p L JOE; difficulty in walking Onset Date 10/04/18 Precautions Posterior Hip Precautions No Hip Flexion > 90 degrees No Hip Internal Rotation No Hip Adduction Other Precautions BP Weight Bearing Status Weight Bearing Status Weight Bear as Tolerated M3 PT-IP Subjective Start: 10/04/18 16:58 Freq: NEEDED Status: Active Protocol: Document 10/06/18 09:20 AB (Rec: 10/06/18 13:12 AB [id number]) Subjective Physical Therapy Visit Type Type Treatment Note Visit Start Time 09:20 Visit Stop Time 10:01 Total Visit Minutes 41 Number of BOLT CUTTER Visits 0 Physical Therapy Visit Comments Patient Comments pt stated that she feel fine Therapy Pain Assessment Pain When Pain Assessed At Rest Pain Present Pain Present Pain Reported Location Left Hip Intensity 1 Scale Used pain increased with movement to 6/10 Pain Behaviors Facial Grimacing Guarding Pain Management Techniques Re-positioning Timing of Activity with Medications M4 PT-IP Mobility and Gait Start: 10/04/18 16:58 Freq: NEEDED Status: Active Protocol: Document 10/06/18 09:20 AB (Rec: 10/06/18 13:12 AB [id number]) PT-Bed Mobility Assessment Supine to Sit Supine to Sit Moderate Assistance 1 Person Assistance Sit to Supine Sit to Supine Minimal Assistance 1 Person Assistance PT-Transfer Assessment Sit to and From Stand Sit to and from Stand Contact Guard Assistance Equipment Transfer Assistive Device Gait Belt Front Wheeled Walker Orthotic/Prosthetic Devices or Brace: No Comments Mobility Comments BP monitored due to low BP past few tx sessions: BP supine: 112/70. caregiver training conducted with niece assisting pt. bed mobility training completed. pt required mod A for supine to sit and min A for sit to supine. instructed niece on how to assist pt. niece counter demonstrated and assist pt with supine<>sit and was able to assist pt safely. pt sat on EOB with c/o slight dizziness. BP checked: 129/83. pt completed sit to stand with niece assisting CGA . Pt tolerated ~ 3 min standing. BP checked after 1 min standin/66. pt stood up for ~ 2 more mintues and c/o dizziness and getting sweaty. BP: 99/63. pushed call light to inform nurse. instructed pt to sit down. BP checked again: 69/36. nurse came in. assisted pt to lay down in bed requiring max A and cues. positioned pt in bed. BP: 100/58. checked BP again after ~ 2 min: 143/77. Left pt with nurse. M5 PT-IP Objective Assessments Start: 10/04/18 16:58 Freq: NEEDED Status: Active Protocol: Document 10/05/18 09:10 AB (Rec: 10/05/18 12:51 AB [id number]) Orientation Orientation/Cognition Level of Alertness Alert Orientation Name Age Birthday Year Place Situation Safety Awareness Decreased Safety Awareness Gross Range of Motion Lower Extremity ROM Assessment Within Functional Limits Strength Lower Extremity Strength Assessment Left Impaired Hip 3-/5 Knee 3+/5 Sensation Assessment Sensation Gross Sensation WNL Muscle Tone Muscle Tone WNL Yes M6 PT-IP Treatment Start: 10/04/18 16:58 Freq: NEEDED Status: Active Protocol: Document 10/06/18 09:20 AB (Rec: 10/06/18 13:12 AB [id number]) Physical Therapy Treatment Exercises Exercises Heel Slides Education Education Provided Precautions Safety Other Treatments Other Treatment Performed reviewed L post hip precautions. caregiver training conducted with pt and pt's niece for heel slides activity, bed mobility and sit to stand. pt's spouse also informed that ramp entry is completed. M7 PT-IP Assessment and Plan Start: 10/04/18 16:58 Freq: NEEDED Status: Active Protocol: Document 10/06/18 09:20 AB (Rec: 10/06/18 13:12 AB [id number]) PT Summary Assessment and Plan Potential Rehabilitation Potential Fair Summary Impairments Pain ROM Strength Balance Coordination Sensation Bed Mobility Transfers Gait Activity Tolerance Progress Towards Goals Slow Progress due to Medical Issues Assessment Summary pt unable to do much activity today due to decrease in BP in standing. conducted caregiver training with pt and niece for bed mobility and sit to stand but pt unable to do any ambulation. set up another caregiver training later today at 130 pm. will continue to assess. Goals Bed Mobility Goal Standby Assistance Transfer Goal Standby Assistance Front Wheeled Walker Gait Goal Standby Assistance Front Wheel Walker Gait Distance 150 Other Goals up/down 2 steps without rail CGA Days to Meet Goals 5 Frequency of Treatment Frequency Of Treatment Twice a Day Treatment Plan Physical Therapy Treatment Plan Bed Mobility Training Transfer Training Gait Training Therapeutic Exercise Balance Retraining Post Op Education Discharge Planning Hot or Cold Pack Neuromuscular Re-ed Coordination Retraining Manual Therapy Other Recommendations and Next Treatment ambulation, caregiver training Focus at 9 am 10/06/18 Recommendations To Nursing Amount of Assist Needed 1 Person Assist Discharge Recommendations PT Discharge Recommendations Home with Assistance Outpatient PT Other Discharge Recommendations d/c plan depending on progress : SNF vs home with assist/ homehealth PT or outpt PT depending on level of assistance
--- NOTE | 2018-10-06 11:49 | PM.PNPO.1 ---
Subjective Date Patient Seen: 10/06/18 Time Patient Seen: 11:50 Interval history: POD #2 s/p left total hip arthroplasty with Dr. Curiel. Patient has been complaining of dizziness and orthostatic hypotension. She had a IV bolus of fluid yesterday that helped. She got up and ambulated in the wallace with physical therapy. Exam Vital Signs (past 8 hours): - 10/06/18 04:44 10/06/18 08:00 Temperature 97.8 F 98.5 F Pulse Rate 72 78 Respiratory Rate 18 18 Blood Pressure 100/74 116/72 Pulse Oximetry 97 100 Oxygen Delivery Method Room Air Oxygen Flow Rate 0 Narrative Exam Narrative: Patient lying in bed in no acute distress. She alert and oriented x3. Dressing on left hip is CDI. Calves are soft, compressible, nontender bilaterally. Pulses are symmetrical. Objective Labs Result Diagrams: 10/06/18 12:46 Assessment & Plan Post-op (1) S/P total hip arthroplasty: Current Visit: Yes Status: Acute (2) Orthostatic hypotension: Current Visit: Yes Status: Acute Postoperative Procedures Operation Date: 10/04/18 13:45 Actual Procedures Side Surgeon p Total Hip Arthroplasty Left Rosa Curiel MD Patient will hold her blood pressure medications. She will have another bolus of fluid. Instructed to take her time when going from a sitting to standing position. She will ambulate with physical therapy today. Continue current pain management. She will likely DC home tomorrow.
[2018-10-06 12:00] VITALS: BP 135/80; PULSE 87; RESP 18; TEMP 36.6; O2SAT 95
[2018-10-06] MEDS: SODIUM CHLORIDE 0.9% 500 ML IV (12:32)
--- NOTE | 2018-10-06 12:33 | P.PN_ITS ---
Subjective Date Patient Seen: 10/06/18 Time Patient Seen: 12:31 Interval history: Hospital day 2, postop day 1 following left total hip arthroplasty by Dr. Curiel. Patient states she was given get a little rest last night. Pain controlled with oxycodone 5 mg. She has a [facility]. She is scheduled to go to [facility] and a [facility]. Has noted some lightheadedness when getting up out of bed. Still has Hemovac in place. Exam Vital Signs (past 8 hours): - 10/06/18 04:44 10/06/18 08:00 10/06/18 12:00 Temperature 97.8 F 98.5 F 98 F Pulse Rate 72 78 87 Respiratory Rate 18 18 18 Blood Pressure 100/74 116/72 135/80 Pulse Oximetry 97 100 95 Oxygen Delivery Method Room Air Oxygen Flow Rate 0 Narrative Exam Narrative: Alert, oriented in no acute distress resting in bed. Left leg. Nemo dressing to left hip is dry with good vacuum. Hemovac in place with decreased drainage. No calf pain or swelling. Pulses symmetrical. Objective Labs Result Diagrams: 10/05/18 05:37 Assessment & Plan Post-op Postoperative Procedures Operation Date: 10/04/18 13:45 Actual Procedures Side Surgeon p Total Hip Arthroplasty Left Rosa Curiel MD Plan: Patient will work with Physical therapy this morning. Observe for improvement in symptoms. Dissipate possible discharge home later today if she is stable and cleared by PT. Will check H&H. DC Hemovac later today if drainage decreased.
[2018-10-06 12:54] LABS: Hematocrit 27.6 % (36-46); Hemoglobin 9.8 g/dL (12.0-16.0)
--- NOTE | 2018-10-06 13:56 | PT.IPTN ---
Current Diagnoses Orthostatic hypotension (10/04/18) Unilateral primary osteoarthritis, left hip (10/04/18) Presence of unspecified artificial hip joint (10/04/18) Surgery Performed Operation Date: 10/04/18 13:45 Actual Procedures p Total Hip Arthroplasty(Left) - Rosa Curiel MD Physical Therapy Treatment Note M2 PT-IP Current Condition Start: 10/04/18 16:58 Freq: NEEDED Status: Active Protocol: Document 10/05/18 09:10 AB (Rec: 10/05/18 12:51 AB [id number]) Physical Therapy Current Condition Current Condition Evaluation Date 10/05/18 Treatment Diagnosis s/p L JOE; difficulty in walking Onset Date 10/04/18 Precautions Posterior Hip Precautions No Hip Flexion > 90 degrees No Hip Internal Rotation No Hip Adduction Other Precautions BP Weight Bearing Status Weight Bearing Status Weight Bear as Tolerated M3 PT-IP Subjective Start: 10/04/18 16:58 Freq: NEEDED Status: Active Protocol: Document 10/06/18 13:56 AB (Rec: 10/06/18 16:19 AB [id number]) Subjective Physical Therapy Visit Type Type Treatment Note Visit Start Time 13:56 Visit Stop Time 14:47 Total Visit Minutes 51 Number of PHOTOGRAPHIC EQUIPMENT INSPECTOR Visits 0 Physical Therapy Visit Comments Patient Comments pt agreeable to do PT Therapy Pain Assessment Pain When Pain Assessed At Rest Pain Present Pain Present Pain Reported Location Left Hip Intensity 1 Scale Used pain increase with mobility Pain Behaviors Facial Grimacing Pain Management Techniques Apply Cold Re-positioning Timing of Activity with Medications M4 PT-IP Mobility and Gait Start: 10/04/18 16:58 Freq: NEEDED Status: Active Protocol: Document 10/06/18 13:56 AB (Rec: 10/06/18 16:19 AB [id number]) PT-Transfer Assessment Sit to and From Stand Sit to and from Stand Contact Guard Assistance Total Assistance Use of Upper Extremities Equipment Transfer Assistive Device Gait Belt Front Wheeled Walker Orthotic/Prosthetic Devices or Brace: No Transfers Transfer Destination Toilet Transfer Technique pt ambulated to the toilet using FWW Transfer Ability Level of Assist Contact Guard Assistance 1 Person Assistance Comments Mobility Comments BP monitored. Pt sitting on chair reclined when PT checked . BP 139/76. positioned pt upright and pt c/o feeling dizzy. BP: 122/73. instructed pt to take deep breaths and relax. BP checked after ~ 2 min: 127/75. caregiver training conducted and pt's niece assisting pt with mobility. pt completed sit to stand CGA and used FWW for support. BP in standin/77. pt ambulated ~ 5 ft and c/o lightheadedness and instructed to sit down. BP checked 126/76. pt stated that lightheadedness dissipated. pt agreed to ambulate more and completed ~ 8 ft and rested. BP: 123/83. pt ambulated in hallway ~ 50 ft x 2 with seated rest. pt requested to use the toilet and ambulated to the toilet using FWW. niece was able to assist pt safely with ambulation and toileting needs. pt requested to stay up on chair and positioned on chair with ice pack. BP checked again: 118/ 80. call light and table placed within reach. Gait Assessment Gait Gait Assistance Required: Contact Guard Assist Distance (Feet) 50 Able to Maintain Weight Bearing Status Yes During Gait Gait Deviations General Gait Pattern Antalgic Decreased Stride Length Decreased Feet Clearance Step-to Gait Factors Limiting Gait Function Factors Limiting Gait Function Decreased Activity Tolerance Decreased Strength Limited Range of Motion Pain Poor Balance Poor Safety Awareness Comments Gait Comments pls refer to mobility section for details. M5 PT-IP Objective Assessments Start: 10/04/18 16:58 Freq: NEEDED Status: Active Protocol: Document 10/05/18 09:10 AB (Rec: 10/05/18 12:51 AB [id number]) Orientation Orientation/Cognition Level of Alertness Alert Orientation Name Age Birthday Year Place Situation Safety Awareness Decreased Safety Awareness Gross Range of Motion Lower Extremity ROM Assessment Within Functional Limits Strength Lower Extremity Strength Assessment Left Impaired Hip 3-/5 Knee 3+/5 Sensation Assessment Sensation Gross Sensation WNL Muscle Tone Muscle Tone WNL Yes M6 PT-IP Treatment Start: 10/04/18 16:58 Freq: NEEDED Status: Active Protocol: Document 10/06/18 13:56 AB (Rec: 10/06/18 16:19 AB [id number]) Physical Therapy Treatment Education Education Provided Precautions Weight Bearing Status Safety M7 PT-IP Assessment and Plan Start: 10/04/18 16:58 Freq: NEEDED Status: Active Protocol: Document 10/06/18 13:56 AB (Rec: 10/06/18 16:19 AB [id number]) PT Summary Assessment and Plan Potential Rehabilitation Potential Good Summary Impairments Pain ROM Strength Balance Coordination Sensation Cognition Bed Mobility Transfers Gait Activity Tolerance Progress Towards Goals Slow Progress due to Medical Issues Slow Progress due to Activity Tolerance Assessment Summary pt was able to tolerate tx better this afternoon with stable BP but continues to c/o lightheadedness but resolves after a few minutes. caregiver training conducted again and janice was able to assist pt with transfers and ambulation. will continue to conduct caregiver training and stair training next tx session. Goals Bed Mobility Goal Standby Assistance Transfer Goal Standby Assistance Front Wheeled Walker Gait Goal Standby Assistance Front Wheel Walker Gait Distance 150 Other Goals up/down 2 steps without rail CGA Days to Meet Goals 5 Frequency of Treatment Frequency Of Treatment Twice a Day Treatment Plan Physical Therapy Treatment Plan Bed Mobility Training Transfer Training Gait Training Therapeutic Exercise Balance Retraining Post Op Education Discharge Planning Hot or Cold Pack Neuromuscular Re-ed Coordination Retraining Manual Therapy Other Recommendations and Next Treatment ambulation, caregiver training Focus at 9 am 10/07/18 Recommendations To Nursing Amount of Assist Needed 1 Person Assist Discharge Recommendations PT Discharge Recommendations Home with Assistance Outpatient PT Other Discharge Recommendations d/c plan depending on progress : SNF vs home with assist/ homehealth PT or outpt PT depending on level of assistance
[2018-10-06 15:50] VITALS: BP 125/76; PULSE 82; RESP 20; TEMP 37.4; O2SAT 100
[2018-10-06] MEDS: FERROUS SULFATE 325 MG TABLET PO (17:20)
[2018-10-06] MEDS: IBUPROFEN 600 MG TABLET PO (19:51)
[2018-10-06] MEDS: ASCORBIC ACID 500 MG TABLET PO (21:55)
[2018-10-06 22:02] VITALS: BP 123/80; PULSE 93; RESP 20; TEMP 37; O2SAT 99
[2018-10-07 00:30] VITALS: BP 124/76; PULSE 83; RESP 16; TEMP 36.7; O2SAT 97
[2018-10-07] MEDS: OXYCODONE IR 5 MG TABLET PO ×3 (02:47→08:55)
[2018-10-07 05:48] LABS: Hematocrit 26.5 % (36-46); Hemoglobin 9.4 g/dL (12.0-16.0); Mean Corpuscular HGB Conc 35.6 % (30-36); Mean Corpuscular Hemoglobin 34.8 PG (26-34); Mean Corpuscular Volume 97.7 fL (80-100); Platelet Count 207 X10^3/uL (150-400); Red Blood Cell Count 2.72 X10^6/uL (4.0-5.2); Red Cell Distribution Width 11.9 % (11.6-14.8); White Blood Cell Count 7.4 X10^3/uL (4.5-11.0)
[2018-10-07 06:11] VITALS: BP 126/78; PULSE 77; RESP 16; TEMP 36.7; O2SAT 96
--- NOTE | 2018-10-07 08:01 | PM.DS.1 ---
History of Present Illness Date Patient Seen: 10/07/18 Time Patient Seen: 08:02 Chief complaint: [id number] LEFT TOTAL HIP ARTHROPLASTY Narrative: Hospital day 3, postop day 2 following left total hip arthroplasty by Dr. Curiel. Patient did better yesterday with gradual improvement in the orthostatic hypotension following bolus of IV fluid. Has been able to work with PT more. Her caregiver has worked with PT as well. She was started on iron and vitamin-C for her postop anemia. Patient feels she is ready to go home today. Discharge Providers Date of admission: 10/04/18 11:39 Primary care physician: Janelle Alvares PA-C Consults: 10/04/18 10:33 Consult to Discharge Planning Routine Comment: Consult to Physical Therapy Evaluate & Treat Comment: Physician Instructions: post op JOE protocol Consult to Respiratory Therapy Evaluate & Treat Comment: Physician Instructions: Evaluate and treat 10/04/18 15:23 Consult to Anesthesiology Routine Comment: Consulting Provider: Anesthesiologist Reason for consultation: Regional block for post operative pain control 10/04/18 19:01 Consult to Discharge Planning Routine Comment: Consult to Physical Therapy Evaluate & Treat Comment: posterior Physician Instructions: post op JOE protocol Consult to Respiratory Therapy Evaluate & Treat Comment: Physician Instructions: Evaluate and treat Discharge provider: Michael Moreno PA-C Discharge Date: 10/07/18 Summary Discharge Diagnosis: Status post left total hip arthroplasty Hospital Course: Patient brought to hospital on 10/04/2018 for above noted surgery. She remained stable except for some orthostatic hypotension which gradually improved. Pain well controlled. Ready for discharge home on postop day 2. Status at Discharge Cognitive/behavioral status at discharge: Alert oriented no acute distress. Functional status at discharge: uses cane/walker Overall status at discharge: patient is progressing back to baseline Time Spent with Patient Less than 30 minutes Exam Vital Signs (past 8 hours): - 10/07/18 00:30 10/07/18 06:11 Temperature 98.1 F 98.1 F Pulse Rate 83 77 Respiratory Rate 16 16 Blood Pressure 124/76 126/78 Pulse Oximetry 97 96 Oxygen Delivery Method Room Air Oxygen Flow Rate 0 Narrative Exam Narrative: Left leg. Iveth dressing to left hip area is dry without drainage or inflammation. No calf pain or swelling. Pulses symmetrical. Objective Labs Result Diagrams: 10/07/18 05:30 Labs: Laboratory Results - last 24 hr 10/06/18 10/07/18 12:46 05:30 WBC 7.4 RBC 2.72 L Hgb 9.8 L 9.4 L Hct 27.6 L 26.5 L MCV 97.7 MCH 34.8 H MCHC 35.6 RDW 11.9 Plt Count 207 Discharge Plan Discharge Plan Patient Disposition: Home Discharge Med Rec/Prescriptions Prescriptions: New oxycodone 5 mg Tablet 5 mg PO Q4H PRN (Reason: Pain, Moderate (4-6)) Qty: 60 RF: 0 Continue tamoxifen 10 mg Tablet 10 mg PO BID Qty: 120 RF: 2 cholecalciferol (vitamin D3) [Vitamin D3] 2,000 unit Tablet 2,000 unit PO DAILY RF: 0 cyanocobalamin (vitamin B-12) [Vitamin B-12] 1,000 mcg Tablet 1,000 mcg PO DAILY RF: 0 cetirizine [Zyrtec] 10 mg Tablet 10 mg PO DAILY RF: 0 lisinopril-hydrochlorothiazide 20-12.5 mg Tablet 1 tab PO DAILY RF: 0 meloxicam 15 mg Tablet 15 mg PO DAILY RF: 0 Follow up/Referrals: Janelle Alvares PA-C [Primary Care Provider] - Rosa Curiel MD [Physician] - (Follow up in 5-7 days) Provider Discharge Instructions Diet: Diet as Tolerated Activity: Posterior hip precautions Skin/Wound/Dressing Care Report to your healthcare provider any signs of infection, such as:: chills, fever and increased pain Dressing: Keep iveth dressing in place until office visit Visit Report/Discharge Packet Instructions: DI for Hip Replacement Visit Report Forms: Stroke Signs & Symptoms Discharge Data Primary Care Provider: Janelle Alvares Attending Provider: Rosa Curiel Admit Date/Time: 10/04/18 11:39
[2018-10-07] MEDS: TAMOXIFEN 10 MG TABLET PO (08:11)
[2018-10-07] MEDS: DOCUSATE 100 MG CAPSULE PO (08:12)
[2018-10-07] MEDS: ASPIRIN EC 81 MG TABLET PO (08:12)
[2018-10-07] MEDS: FERROUS SULFATE 325 MG TABLET PO (08:12)
[2018-10-07] MEDS: CHOLECALCIFEROL (VITAMIN D3) 1,000 UNIT TABLET 2000 UNIT PO (08:12)
[2018-10-07] MEDS: LORATADINE 10 MG TABLET PO (08:12)
[2018-10-07] MEDS: ACETAMINOPHEN 325 MG TABLET 975 MG PO (08:12)
[2018-10-07] MEDS: ASCORBIC ACID 500 MG TABLET PO (08:13)
[2018-10-07] MEDS: CYANOCOBALAMIN (VITAMIN B-12) 500 MCG TABLET 1000 MCG PO (08:13)
[2018-10-07 08:30] VITALS: BP 129/100; PULSE 84; RESP 18; TEMP 36.3; O2SAT 100
--- NOTE | 2018-10-07 09:15 | PT.IPTN ---
Current Diagnoses Orthostatic hypotension (10/04/18) Unilateral primary osteoarthritis, left hip (10/04/18) Presence of unspecified artificial hip joint (10/04/18) Surgery Performed Operation Date: 10/04/18 13:45 Actual Procedures p Total Hip Arthroplasty(Left) - Rosa Curiel MD Physical Therapy Treatment Note M2 PT-IP Current Condition Start: 10/04/18 16:58 Freq: NEEDED Status: Discharge Protocol: Document 10/05/18 09:10 AB (Rec: 10/05/18 12:51 AB [id number]) Physical Therapy Current Condition Current Condition Evaluation Date 10/05/18 Treatment Diagnosis s/p L JOE; difficulty in walking Onset Date 10/04/18 Precautions Posterior Hip Precautions No Hip Flexion > 90 degrees No Hip Internal Rotation No Hip Adduction Other Precautions BP Weight Bearing Status Weight Bearing Status Weight Bear as Tolerated M3 PT-IP Subjective Start: 10/04/18 16:58 Freq: NEEDED Status: Discharge Protocol: Document 10/07/18 09:15 AB (Rec: 10/07/18 13:26 AB [id number]) Subjective Physical Therapy Visit Type Type Treatment Note Visit Start Time 09:15 Visit Stop Time 09:53 Total Visit Minutes 38 Number of CUSTOMER SOLUTIONS COORDINATOR Visits 0 Physical Therapy Visit Comments Patient Comments i am feeling much better today Therapy Pain Assessment Pain When Pain Assessed At Rest Pain Present Pain Present Pain Reported Location Left Hip Intensity 1 Scale Used Numeric (1 - 10) Pain Management Techniques Apply Cold Timing of Activity with Medications M4 PT-IP Mobility and Gait Start: 10/04/18 16:58 Freq: NEEDED Status: Discharge Protocol: Document 10/07/18 09:15 AB (Rec: 10/07/18 13:26 AB [id number]) PT-Transfer Assessment Sit to and From Stand Sit to and from Stand Contact Guard Assistance Equipment Transfer Assistive Device Gait Belt Front Wheeled Walker Orthotic/Prosthetic Devices or Brace: No Comments Mobility Comments caregiver training conducted. pt's niece was able to put safety belt on and assist pt with transfer and ambulation using FWW. Gait Assessment Gait Gait Assistance Required: Contact Guard Assist Distance (Feet) 100 Assistive Devices Assistive Device Gait Belt Front Wheeled Walker Orthotic/Prosthetic Devices or Brace: No Gait Deviations General Gait Pattern Antalgic Decreased Stride Length Decreased Feet Clearance Factors Limiting Gait Function Factors Limiting Gait Function Decreased Activity Tolerance Decreased Strength Limited Range of Motion Pain Poor Balance Poor Safety Awareness Comments Gait Comments pt's niece was able to assit pt with ambulation using FWW. Stair Climbing Assessment Evaluation Level of Assist On Stairs Contact Guard Assistance Devices Stair Climbing Assistive Devices Left Railing Right Railing Technique/Endurance Stair Climbing Direction Ascend and Descend Stair Climbing Technique Step to Step Number of Steps Climbed 3 Query Text: Stair Climbing Set # Repetitions (reps) 2 Comments Stair Climbing Comments stair climbing completed with PT assisting pt first and then pt's niece counterdemonstrated. pt completed up/down stairs using bilateral rails CGA and cues for safety. educated niece on how to assist pt and completed stair with pt and was able to assit pt safely. M5 PT-IP Objective Assessments Start: 10/04/18 16:58 Freq: NEEDED Status: Discharge Protocol: Document 10/05/18 09:10 AB (Rec: 10/05/18 12:51 AB [id number]) Orientation Orientation/Cognition Level of Alertness Alert Orientation Name Age Birthday Year Place Situation Safety Awareness Decreased Safety Awareness Gross Range of Motion Lower Extremity ROM Assessment Within Functional Limits Strength Lower Extremity Strength Assessment Left Impaired Hip 3-/5 Knee 3+/5 Sensation Assessment Sensation Gross Sensation WNL Muscle Tone Muscle Tone WNL Yes M6 PT-IP Treatment Start: 10/04/18 16:58 Freq: NEEDED Status: Discharge Protocol: Document 10/07/18 09:15 AB (Rec: 10/07/18 13:26 AB [id number]) Physical Therapy Treatment Education Education Provided Precautions Weight Bearing Status Post-Op Packet Safety M7 PT-IP Assessment and Plan Start: 10/04/18 16:58 Freq: NEEDED Status: Discharge Protocol: Document 10/07/18 09:15 AB (Rec: 10/07/18 13:26 AB [id number]) PT Summary Assessment and Plan Potential Rehabilitation Potential Good Summary Impairments Pain ROM Strength Balance Coordination Sensation Tone Cognition Bed Mobility Transfers Gait Activity Tolerance Progress Towards Goals Progressing Toward Goals Assessment Summary pt doing well with mobility and pt's niece is able to assist pt safely. pt's niece stated that she will pass along and train other family members that will assist pt at home. pt plans to go home today. Goals Bed Mobility Goal Standby Assistance Transfer Goal Standby Assistance Front Wheeled Walker Gait Goal Standby Assistance Front Wheel Walker Gait Distance 150 Other Goals up/down 2 steps without rail CGA Days to Meet Goals 5 Frequency of Treatment Frequency Of Treatment Twice a Day Treatment Plan Physical Therapy Treatment Plan Bed Mobility Training Transfer Training Gait Training Therapeutic Exercise Balance Retraining Post Op Education Discharge Planning Hot or Cold Pack Neuromuscular Re-ed Coordination Retraining Manual Therapy Recommendations To Nursing Amount of Assist Needed 1 Person Assist Discharge Recommendations PT Discharge Recommendations Home with 19/04 Assist Outpatient PT
[2018-10-07] MEDS: POLYETHYLENE GLYCOL 3350 17 GM POWD.PACK PO (10:41)
[2018-10-07 10:45] VITALS: BP 127/86; PULSE 81; RESP 18; TEMP 36.8; O2SAT 93
--- NOTE | 2018-10-07 13:22 | PC.NURSE ---
Day Shift-Pt A&OX4, pleasant, states is feeling much better than yesterday and wants to go home today. Pt's family present in room to drive pt home here in [place]. Left hip HEVER dressing intact. Reviewed written discharge instructions from discharge packet. Reviewed medications, prescriptions, S/S of infection, care of HEVER dressing, mobility, diet, avoiding constipation. pt concerned when to take her blood pressure medications as she wanted to hold from taking them today. Explained to take her blood pressure every morning and keep record of values to report to her primary care during follow up appointment in 1-2 weeks. Take as scheduled and monitor for symptoms of light-headedness, feeling faint, or dizziness. No other voiced concerns. Pt left unit with all belongings, via wheelchair in no distress at 1145 with this speech writer.
== END 2018-10-07 11:45 | disposition home or self-care (01) | DRG 470 ==
PROVIDERS: Physician Assistant; Physician Assistant Surgical; Admitting Provider Orthopaedic Surgery; PCP Physician Assistant; Visit Provider Orthopaedic Surgery
PROC: 0SRB0JZ Replacement of Left Hip Joint with Synthetic Substitute, Open Approach (ICD-10-PCS; CPT 27130; principal; 2018-10-04 13:45)
DX: M16.12 Unilateral primary osteoarthritis, left hip (principal); I10 Essential (primary) hypertension; I95.1 Orthostatic hypotension
CPT/HCPCS: 36415; 72170; 73502; 85014; 85018; 85027; 97116; 97162; 97530; C1776; C9290; J0171; J0690; J1100; J2250; J2274; J2405; J2704; J3010; J3370

== ENCOUNTER → 2018-12-30 09:30 | Outpatient (CLI) | payer OTHER, SELFPAY ==
[2018-10-04 19:01] VITALS: BMI 37.5
--- NOTE | 2018-12-30 09:32 | DI.RAD.S_ITS ---
PROCEDURE: XR CHEST 2V INDICATIONS: cough TECHNIQUE: 2 views of the chest were acquired. COMPARISON: None. FINDINGS: Surgical changes and devices: Left breast clips are seen. Lungs and pleura: Lungs are clear. No pleural effusions or pneumothorax. Mediastinum: Mediastinal contours are normal. Heart size is normal. Bones and chest wall: No suspicious bony abnormalities. Age-appropriate bony degenerative changes are seen. Mild dextroconvex scoliotic curvature is seen. Soft tissues appear unremarkable. IMPRESSION: No focal infiltrates are seen. Dictated by: Henok Velasco M.D. on 12/30/2018 at 8:53 Approved by: Henok Velasco M.D. on 12/30/2018 at 8:54
[2018-12-30 10:06] LABS: D Dimer 397 ng/mL (<230)
== END ==
PROVIDERS: PCP Physician Assistant; Visit Provider Physician Assistant
DX: R05 Cough (principal)
CPT/HCPCS: 36415; 71046; 85379

== ENCOUNTER → 2019-05-10 16:01 | Outpatient (CLI) | payer OTHER, SELFPAY ==
[2018-10-04 19:01] VITALS: BMI 37.5
--- NOTE | 2019-05-10 | DI.MG.S_ITS ---
BILATERAL DIGITAL SCREENING MAMMOGRAM 3D/2D WITH CAD: 05/10/2019 CLINICAL: Routine screening. Personal history of left breast cancer. Comparison is made to exams dated: 05/09/2018 mammogram, 05/05/2017 mammogram, and 05/04/2016 mammogram - [facility]. There are scattered fibroglandular elements in both breasts. Current study was also evaluated with a Computer Aided Detection (CAD) system. There are benign post operative findings in the left breast. No significant masses, calcifications, or other findings are seen in either breast. There has been no significant interval change. IMPRESSION: There is no mammographic evidence of malignancy. A 1 year screening mammogram is recommended. This exam was interpreted at Station ID: [id number]. NOTE: For mammograms, a report in lay terms will be sent to the patient. Approximately 15% of breast malignancies will not be visualized mammographically. In the management of a palpable breast mass, a negative mammogram must not discourage biopsy of a clinically suspicious lesion. Electronically Signed By: Marion wooten/bre:05/10/2019 17:38:47 copy to: CRUZ DUARTE letter sent: Normal Exam ACR BI-RADS Category 2: Benign Finding(s) 3342F
== END ==
PROVIDERS: Visit Provider Internal Medicine
DX: Z12.31 Encounter for screening mammogram for malignant neoplasm of breast (principal); Z85.3 Personal history of malignant neoplasm of breast
CPT/HCPCS: 77063; 77067

== ENCOUNTER → 2019-05-18 16:00 | Oncology outpatient (ONC) | payer OTHER, SELFPAY ==
--- NOTE | 2018-04-18 07:52 | ONC.APRN.PN ---
Assessment and Plan (1) Breast cancer Current visit: No Status: Acute 04/18/18 07:55 Mari is a 57 year old female with pT1c pN0i MX, stage I breast cancer, infiltrating ductal carcinoma on the left, ER positive, KS positive, Ki67 intermediate, HER2/nicolas negative, She is now in Year 4 of surveillance. She is scheduled for mammogram next month April 2018 DEXA scan 11/30/2016 showed osteropenia in the AP spine and left femoral neck. She is taking vitamin D and calcium also working with personal companion she plans to repeat DXA bone scan in spring 2018. She had been taking letrozole since 2013 however due to severe joint pain this was discontinued she is now taking tamoxifen which was initiated in January of 2018. She tolerated aromatase inhibotor inhibitor for 4 years. On exam today no clinical signs or symptoms of disease recurrence. Tolerating tamoxifen without adverse effects. I did discuss with the patient continuing with annual gynecology exam is which she agrees to. Return to clinic in 6 months time for provider visit CBC CMP CA 27-29. 04/18/18 15:33 - Time Spent with Patient 25 mins PN -Subjective Interval history: The patient is a 57 year old Female who is being seen in the clinic 04/18/2018 pT1c pN0i MX, stage I breast cancer, infiltrating ductal carcinoma on the left, ER positive, KS positive, Ki67 intermediate, HER2/nicolas negative, 1.8 cm. Status post lumpectomy 05/23/2014; Oncotype score 13 with an 8% recurrence rate; radiation completed 09/07/14, was on letrozole until 11/2017 stopped due to severe hip pain which resolved after drug holiday. She tried letrozole once again unfortunately she again developed intolerable join pain subsequently transition to tamoxifen beginning January of 2018. Patient presents for clinical evaluation today. Since beginning tamoxifen patient reports she has been feeling ?much better?. No longer having joint pain. Mood is stable. She denies any vaginal bleeding, vaginal spotting. No lower extremity swelling or pain. Activity tolerance is quite good, appetite is stable, weight is stable. Patient continues to exercise with a personal companion. She is scheduled for annual screening mammogram next month, April 2018. She does do self-breast exams she has not noticed any changes. No lumps or bumps. No skin changes, no nipple discharge. No tenderness. PMH: Left sided breast cancer, ER positive, KS positive, Ki67 intermediate, HER2/nicolas negative, 1.8 cm. Original biopsy, 12/2013. Lumpectomy 05/23/2014 with sentinel node sampling. Primary mass is in the nipple-areolar complex. She is had been taking letrozole until 11/2017. Stopped due to severe hip pain which resolved after drug holiday. Last mammogram 05/04/2016 DEXA scan November 2015 showing osteopenia dual femur and AP spine. She is postmenopausal. Vitamin D levels have been normal. Results - Imaging Additional studies: Procedures Excision of axillary lymph node (05/23/14) Subtotal mastectomy (05/23/14) Home Medications and Allergies Home Medications Medication Instructions Recorded Confirmed Type aspirin 81 mg PO QDAY #0 05/06/16 History diclofenac sodium 75 mg PO Q DAY #0 05/14/17 History [TURMERIC] #0 08/13/17 History tamoxifen 10 mg PO BID #120 tab 02/18/18 Rx cetirizine [Zyrtec] 10 mg PO DAILY 04/18/18 04/18/18 History cholecalciferol (vitamin D3) 2,000 unit PO DAILY 04/18/18 04/18/18 History [Vitamin D3] cyanocobalamin (vitamin B-12) 1,000 mcg PO DAILY 04/18/18 04/18/18 History [Vitamin B-12] lisinopril 20 mg PO DAILY 04/18/18 04/18/18 History Allergies Allergy/AdvReac Type Severity Reaction Status Date / Time codeine [CODEINE] AdvReac Intermediate VOMITING Unverified 01/05/18 12:29 Exam Narrative: well appearing - Constitutional positive no acute distress, positive obese - Routine HEENT Exam Eye: Present: conjunctivae pink. Absent: conjunctival icterus, scleral injection ENT: Present: mucous membranes moist, oropharynx clear - Routine Neck Exam Present: supple. Absent: lymphadenopathy - Routine Chest/Breast/Axilla Exam Chest wall exam standard: Absent: tenderness, mass Breast: Absent: tenderness, induration, mass, swelling, erythema Axillae: Absent: lymphadenopathy, mass, tenderness - Routine Respiratory Exam Present: Clear to auscultation bilaterally - Routine Cardiovascular Exam Present: RRR - Routine Abdominal Exam Present: soft, normoactive bowel sounds. Absent: tenderness, organomegaly, mass - Routine Extremities Exam Absent: edema, calf tenderness - Routine Neurological Exam Present: alert, oriented X3 - Routine Psychiatric Exam Present: normal affect
--- NOTE | 2018-04-18 07:55 | P.PNONC_ITS ---
Assessment and Plan (1) Breast cancer Current visit: No Status: Acute 04/18/18 07:55 Mari is a 57 year old female with pT1c pN0i MX, stage I breast cancer, infiltrating ductal carcinoma on the left, ER positive, ME positive, Ki67 intermediate, HER2/nicolas negative, She is now in Year 4 of surveillance. She is scheduled for mammogram next month April 2018 DEXA scan 11/30/2016 showed osteropenia in the AP spine and left femoral neck. She is taking vitamin D and calcium also working with personal assistant she plans to repeat DXA bone scan in spring 2018. She had been taking letrozole since 2013 however due to severe joint pain this was discontinued she is now taking tamoxifen which was initiated in January of 2018. She tolerated aromatase inhibotor inhibitor for 4 years. On exam today no clinical signs or symptoms of disease recurrence. Tolerating tamoxifen without adverse effects. I did discuss with the patient continuing with annual gynecology exam is which she agrees to. Return to clinic in 6 months time for provider visit CBC CMP CA 27-29. 04/18/18 15:33 - Time Spent with Patient 25 mins PN -Subjective Interval history: The patient is a 57 year old Female who is being seen in the clinic 04/18/2018 pT1c pN0i MX, stage I breast cancer, infiltrating ductal carcinoma on the left, ER positive, ME positive, Ki67 intermediate, HER2/nicolas negative, 1.8 cm. Status post lumpectomy 05/23/2014; Oncotype score 13 with an 8% recurrence rate; radiation completed 09/07/14, was on letrozole until 11/2017 stopped due to severe hip pain which resolved after drug holiday. She tried letrozole once again unfortunately she again developed intolerable join pain subsequently transition to tamoxifen beginning January of 2018. Patient presents for clinical evaluation today. Since beginning tamoxifen patient reports she has been feeling ?much better?. No longer having joint pain. Mood is stable. She denies any vaginal bleeding, vaginal spotting. No lower extremity swelling or pain. Activity tolerance is quite good, appetite is stable, weight is stable. Patient continues to exercise with a personal assistant. She is scheduled for annual screening mammogram next month, April 2018. She does do self-breast exams she has not noticed any changes. No lumps or bumps. No skin changes, no nipple discharge. No tenderness. PMH: Left sided breast cancer, ER positive, ME positive, Ki67 intermediate, HER2/ nicolas negative, 1.8 cm. Original biopsy, 12/2013. Lumpectomy 05/23/2014 with sentinel node sampling. Primary mass is in the nipple-areolar complex. She is had been taking letrozole until 11/2017. Stopped due to severe hip pain which resolved after drug holiday. Last mammogram 05/04/2016 DEXA scan November 2015 showing osteopenia dual femur and AP spine. She is postmenopausal. Vitamin D levels have been normal. Results - Imaging Additional studies: Procedures Excision of axillary lymph node (05/23/14) Subtotal mastectomy (05/23/14) Home Medications and Allergies Home Medications Medication Instructions Recorded Confirmed Type aspirin 81 mg PO QDAY #0 05/06/16 History diclofenac sodium 75 mg PO Q DAY #0 05/14/17 History [TURMERIC] #0 08/13/17 History tamoxifen 10 mg PO BID #120 tab 02/18/18 Rx cetirizine [Zyrtec] 10 mg PO DAILY 04/18/18 04/18/18 History cholecalciferol (vitamin D3) 2,000 unit PO DAILY 04/18/18 04/18/18 History [Vitamin D3] cyanocobalamin (vitamin B-12) 1,000 mcg PO DAILY 04/18/18 04/18/18 History [Vitamin B-12] lisinopril 20 mg PO DAILY 04/18/18 04/18/18 History Allergies Allergy/AdvReac Type Severity Reaction Status Date / Time codeine [CODEINE] AdvReac Intermediate VOMITING Unverified 01/05/18 12:29 Exam Narrative: well appearing - Constitutional positive no acute distress, positive obese - Routine HEENT Exam Eye: Present: conjunctivae pink. Absent: conjunctival icterus, scleral injection ENT: Present: mucous membranes moist, oropharynx clear - Routine Neck Exam Present: supple. Absent: lymphadenopathy - Routine Chest/Breast/Axilla Exam Chest wall exam standard: Absent: tenderness, mass Breast: Absent: tenderness, induration, mass, swelling, erythema Axillae: Absent: lymphadenopathy, mass, tenderness - Routine Respiratory Exam Present: Clear to auscultation bilaterally - Routine Cardiovascular Exam Present: RRR - Routine Abdominal Exam Present: soft, normoactive bowel sounds. Absent: tenderness, organomegaly, mass - Routine Extremities Exam Absent: edema, calf tenderness - Routine Neurological Exam Present: alert, oriented X3 - Routine Psychiatric Exam Present: normal affect
[2018-04-18 15:13] VITALS: BP 133/80; PULSE 78; RESP 18; TEMP 36.3; O2SAT 99
[2018-11-14 09:13] LABS: Add Manual Diff / Slide Review NO; Basophils Absolute Auto 100 /uL (0-100); Eosinophils Absolute Auto 200 /uL (0-450); Eosinophils Percent Auto 2.9 % (2-4); Hematocrit 34.2 % (36-46); Hemoglobin 11.8 g/dL (12.0-16.0); Lymphocytes Absolute Auto 1600 /uL (1100-4500); Lymphocytes Percent Auto 27.7 % (25-40); Mean Corpuscular HGB Conc 34.5 % (30-36); Mean Corpuscular Hemoglobin 33.4 PG (26-34); Monocytes Absolute Auto 500 /uL (0-900); Monocytes Percent Auto 8.4 % (3-14); Neutrophils Absolute Auto 3400 /uL (1500-7000); Platelet Count 348 X10^3/uL (150-400); Red Blood Cell Count 3.53 X10^6/uL (4.0-5.2); Red Cell Distribution Width 12.3 % (11.6-14.8); White Blood Cell Count 5.8 X10^3/uL (4.5-11.0)
[2018-11-14 09:24] LABS: Alanine Aminotransferase 25 IU/L (9-52); Albumin 4.3 g/dL (3.5-5.0); Albumin Globulin Ratio 1.4 (1.0-2.8); Alkaline Phosphatase 53 U/L (38-126); Aspartate Aminotransferase 23 IU/L (14-36); BUN Creatinine Ratio 21.4 (6-22); Bilirubin Total 0.3 mg/dL (0.2-1.3); Blood Urea Nitrogen 15 mg/dL (7-17); Carbon Dioxide 25 mmol/L (22-32); Chloride 102 mmol/L (98-107); Estimated Glomerular Filt Rate > 60.0 mL/min (>60); Globulin 3.1 g/dL (1.7-4.1); Glucose 99 mg/dL (70-100); HEMOLYSIS < 15 (0-50); Potassium 3.9 mmol/L (3.4-5.1); Sodium 138 mmol/L (137-145); Total Protein 7.4 g/dL (6.3-8.2)
--- NOTE | 2018-11-14 16:26 | PC.NURSE ---
labs stable, provider visit 11/17
[2018-11-15 16:45] LABS: Cancer Antigen 27.29 27 U/mL (< 38)
[2018-11-17 13:45] VITALS: BP 138/85; PULSE 74; RESP 16; TEMP 36.6; O2SAT 98
--- NOTE | 2018-11-17 13:56 | P.PNONC_ITS ---
PN -Subjective Interval history: Mari Hinton is a 57 year old Female with pT1c pN0i MX, stage I breast cancer, infiltrating ductal carcinoma on the left, ER positive, SD positive, Ki67 intermediate, HER2 negative, 1.8 cm. Status post lumpectomy 05/23/2014; Oncotype score 13 with an 8% recurrence rate; radiation completed 09/07/14. She was on letrozole until 11/2017 when she stopped due to severe left hip pain which resolved after drug holiday. She tried letrozole once again unfortunately she again developed intolerable join pain subsequently transition to tamoxifen beginning January of 2018. She underwent screening mammogram on 05/09/2018. There is no mammographic evidence of malignancy. A 1 year follow-up is recommended. He is here for scheduled follow-up visit. She underwent left hip replacement on Oct 04, 2018. Pain has resolved. No other new pain. He is now taking Tamoxifen 20 mg daily. Mild hot flashes occasionally. No night sweats. Her weight has been stable. Sometimes, she felt shortness going upstairs. No chest pain. No tightness of chest. No nausea, no vomiting, no abdominal pain. - Patient Self-Reported Symptoms SR Cardiovascular issues: Dizzy/lightheaded SR Neuro issues: Lightheaded/dizzy - Additional ROS All systems PM: reviewed and no additional remarkable complaints except as stated Home Medications and Allergies Home Medications Medication Instructions Recorded Confirmed Type tamoxifen 10 mg PO BID #120 tab 02/18/18 11/17/18 Rx cetirizine [Zyrtec] 10 mg PO DAILY 04/18/18 10/04/18 History cholecalciferol (vitamin D3) 2,000 unit PO DAILY 04/18/18 10/04/18 History [Vitamin D3] cyanocobalamin (vitamin B-12) 1,000 mcg PO DAILY 04/18/18 10/04/18 History [Vitamin B-12] lisinopril-hydrochlorothiazide 1 tab PO DAILY 09/06/18 10/04/18 History Allergies Allergy/AdvReac Type Severity Reaction Status Date / Time codeine [CODEINE] AdvReac Intermediate VOMITING Verified 10/04/18 12:45 Exam Vital signs: Last Vital Signs Temp 97.8 F 11/17/18 13:45 Pulse 74 11/17/18 13:45 Resp 16 11/17/18 13:45 BP 138/85 11/17/18 13:45 Pulse Ox 98 11/17/18 13:45 ECOG 1 Narrative: Constitutional: WDWN, NAD, well groomed, obese, pleasant and cooperative. HEENT: NCAT, EOMI, PERRLA, anicteric sclera. Neck: Supple, No palpable thyromegaly or lymphadenopathy. Respiratory: Clear to auscultation, and no wheezes or rales or rubs. Cardiovascular: RRR, S1 and S2 normal, no M/G/R. No JVD. Abdomen: Soft, NTND, BS normal, no palpable organomegaly, no hernia, no palpable masses. Extremities: No LE pitting edema. Lymphatic: no palpable lymph nodes in the neck, axillae Musculoskeletal: normal gait and station Skin: no rashes, no ulcers, no petechiae Neurological: AOx3, CN II-XII grossly intact. No focal motor or sensory deficit. Psychiatric: Good judgment and insight; normal affect; normal thought process; cooperative, no depression, no anxiety. Breast Exam: Right breast: No nipple retraction, no palpable masses or nodules, no skin changes, and no lymph nodes in the right axilla; left breast: Nipple is absent status post previous lumpectomy, no palpable nodes or masses, no palpable lymph nodes in the left axilla. All physical examinations were chaperoned. Results - Labs Laboratory Last Values WBC 5.8 X10^3/uL (4.5-11.0) 11/14/18 09: RBC 3.53 X10^6/uL (4.0-5.2) L 11/14/18 09:01 Hgb 11.8 g/dL (12.0-16.0) L 11/14/18 09:01 Hct 34.2 % (36-46) L 11/14/18 09:01 MCV 97.0 fL (80-100) 11/14/18 09:01 MCH 33.4 PG (26-34) 11/14/18 09: MCHC 34.5 % (30-36) 11/14/18 09:01 RDW 12.3 % (11.6-14.8) 11/14/18 09: Plt Count 348 X10^3/uL (150-400) 11/14/18 09:01 Neut % (Auto) 60.0 % (50-75) 11/14/18 09:01 Lymph % (Auto) 27.7 % (25-40) 11/14/18 09:01 [place] % (Auto) 8.4 % (3-14) 11/14/18 09:01 Eos % (Auto) 2.9 % (2-4) 11/14/18 09:01 Baso % (Auto) 1.0 % (0-2) 11/14/18 09:01 Neut # (Auto) 3400 /uL (9429-4801) 11/14/18 09: Lymph # (Auto) 1600 /uL (5679-5017) 11/14/18 09:01 [place] # (Auto) 500 /uL (0-900) 11/14/18 09:01 Eos # (Auto) 200 /uL (0-450) 11/14/18 09:01 Baso # (Auto) 100 /uL (0-100) 11/14/18 09: Sodium 138 mmol/L (137-145) 11/14/18 09:01 Potassium 3.9 mmol/L (3.4-5.1) 11/14/18 09: Chloride 102 mmol/L (98-107) 11/14/18 09:01 Carbon Dioxide 25 mmol/L (22-32) 11/14/18 09:01 BUN 15 mg/dL (7-17) 11/14/18 09: Creatinine 0.70 mg/dL (0.52-1.04) 11/14/18 09: Estimated GFR > 60.0 mL/min (>60) 11/14/18 09: BUN/Creatinine Ratio 21.4 (6-22) 11/14/18 09: Glucose 99 mg/dL (70-100) 11/14/18 09: Calcium 9.0 mg/dL (8.4-10.2) 11/14/18 09:01 Total Bilirubin 0.3 mg/dL (0.2-1.3) 11/14/18 09: AST 23 IU/L (14-36) 11/14/18 09:01 ALT 25 IU/L (9-52) 11/14/18 09: Alkaline Phosphatase 53 U/L (38-126) 02/18/19 09:01 Total Protein 7.4 g/dL (6.3-8.2) 11/14/18 09:01 Albumin 4.3 g/dL (3.5-5.0) 11/14/18 09:01 Globulin 3.1 g/dL (1.7-4.1) 11/14/18 09:01 Albumin/Globulin Ratio 1.4 (1.0-2.8) 11/14/18 09:01 CA 27-29 27 U/mL (< 38) 11/14/18 09:01 - Imaging Additional studies: Procedures Excision of axillary lymph node (05/23/14) Replacement of Left Hip Joint with Metal on Polyethylene Synthetic Substitute, Open Approach (10/04/18) Subtotal mastectomy (05/23/14) Assessment and Plan (1) Breast cancer Problem details: Left breast, IDC, pT1c pN0i Mx (stage I), IDC, ER+, SD+, Ki67 intermediate, HER2-, 1.8 cm, status post lumpectomy (05/23/2014); Oncotype Dx score 13; adjuvant radiation completed 09/07/14. She was on letrozole until 11/2017 when she stopped due to severe left hip pain which resolved after drug holiday. She tried letrozole once again unfortunately she again developed intolerable join pain subsequently transition to tamoxifen beginning January of 2018. Assessment and Plan: I reviewed the mammogram results with the patient. The mammogram showed no evidence of malignancy. One year screening mammogram is recommended. Patient currently is taking tamoxifen. She was asking the length of the endocrine therapy. I talked with her that based on NCCN guideline, 5 year of endocrine therapy is mandatory. After 5 years of treatment, extended endocrine therapy can be considered but not mandatory. I talked with her that it is a risk and benefit balance. Continued endocrine therapy has been shown to decrease the invasive disease recurrence, but it also carries risk of complications including endometrium carcinoma/blood clot if patient is taking tamoxifen or osteoporosis if patient is on aromatase inhibitor. The overall survival benefit is questionable. I recommended that for the time being, we will continue the tamoxifen 10 mg twice daily without any changes. Patient will get the screening mammogram done in April, and then come back to see me to further discuss the extended endocrine therapy.
[2019-05-15 11:43] LABS: Add Manual Diff / Slide Review NO; Basophils Absolute Auto 100 /uL (0-100); Basophils Percent Auto 0.8 % (0-2); Eosinophils Absolute Auto 200 /uL (0-450); Eosinophils Percent Auto 2.1 % (2-4); Hematocrit 35.6 % (36-46); Hemoglobin 12.7 g/dL (12.0-16.0); Lymphocytes Absolute Auto 1900 /uL (1100-4500); Lymphocytes Percent Auto 25.3 % (25-40); Mean Corpuscular HGB Conc 35.8 % (30-36); Mean Corpuscular Hemoglobin 34.5 PG (26-34); Mean Corpuscular Volume 96.3 fL (80-100); Monocytes Absolute Auto 500 /uL (0-900); Monocytes Percent Auto 7.2 % (3-14); Neutrophils Absolute Auto 4800 /uL (1500-7000); Neutrophils Percent Auto 64.6 % (50-75); Platelet Count 340 X10^3/uL (150-400); Red Blood Cell Count 3.69 X10^6/uL (4.0-5.2); Red Cell Distribution Width 11.3 % (11.6-14.8); White Blood Cell Count 7.4 X10^3/uL (4.5-11.0)
[2019-05-15 12:03] LABS: Alanine Aminotransferase 36 IU/L (9-52); Albumin 4.4 g/dL (3.5-5.0); Albumin Globulin Ratio 1.4 (1.0-2.8); Alkaline Phosphatase 48 U/L (38-126); Aspartate Aminotransferase 35 IU/L (14-36); BUN Creatinine Ratio 17.8 (6-22); Bilirubin Total 0.8 mg/dL (0.2-1.3); Blood Urea Nitrogen 16 mg/dL (7-17); Calcium 9.4 mg/dL (8.4-10.2); Carbon Dioxide 26 mmol/L (22-32); Chloride 97 mmol/L (98-107); Estimated Glomerular Filt Rate > 60.0 mL/min (>60); Globulin 3.2 g/dL (1.7-4.1); Glucose 135 mg/dL (70-100); HEMOLYSIS < 15 (0-50); Potassium 3.4 mmol/L (3.4-5.1); Sodium 137 mmol/L (137-145); Total Protein 7.6 g/dL (6.3-8.2)
--- NOTE | 2019-05-18 15:40 | ONC.PN ---
PN -Subjective Interval history: Mari Hinton is a 58 year old woman with breast cancer here for scheduled follow up visit. Oncology History: pT1c pN0i MX, stage I breast cancer, infiltrating ductal carcinoma on the left, ER positive, AL positive, Ki67 intermediate, HER2 negative, 1.8 cm. Status post lumpectomy 05/23/2014; Oncotype score 13; radiation completed 09/07/14. She was on letrozole until 11/2017 when she stopped due to severe left hip pain which resolved after drug holiday. She tried letrozole once again unfortunately she again developed intolerable join pain subsequently transition to tamoxifen beginning January of 2018. Interim Events: She underwent screening mammogram on . There is no mammographic evidence of malignancy. A 1 year follow-up is recommended. Clinically, she has been doing well. No chest pain. No tightness of chest. No nausea, no vomiting, no abdominal pain. - Patient Self-Reported Symptoms SR Cardiovascular issues: Dizzy/lightheaded SR Neuro issues: Lightheaded/dizzy - Additional ROS All systems PM: reviewed and no additional remarkable complaints except as stated Home Medications and Allergies Home Medications Medication Instructions Recorded Confirmed Type tamoxifen 10 mg PO BID #120 tab 02/18/18 05/18/19 Rx cetirizine [Zyrtec] 10 mg PO DAILY 04/18/18 05/18/19 History cholecalciferol (vitamin D3) 2,000 unit PO DAILY 04/18/18 05/18/19 History [Vitamin D3] cyanocobalamin (vitamin B-12) 1,000 mcg PO DAILY 04/18/18 05/18/19 History [Vitamin B-12] lisinopril-hydrochlorothiazide 1 tab PO DAILY 09/06/18 05/18/19 History aspirin 81 mg tablet,delayed 81 mg PO DAILY 12/30/18 05/18/19 History release benzonatate 100 mg capsule 100 mg PO TID PRN #20 cap 12/30/18 05/18/19 Rx Allergies Allergy/AdvReac Type Severity Reaction Status Date / Time codeine [CODEINE] AdvReac Intermediate VOMITING Verified 12/30/18 08:31 Exam Vital signs: Last Vital Signs Temp 97.8 F 11/17/18 13:45 Pulse 74 11/17/18 13:45 Resp 16 11/17/18 13:45 BP 138/85 11/17/18 13:45 Pulse Ox 98 11/17/18 13:45 Narrative: ECOG 1 Constitutional: WDWN, NAD, well groomed, pleasant and cooperative. HEENT: NCAT, EOMI, PERRLA, anicteric sclera. Neck: Supple, No palpable thyromegaly or lymphadenopathy. Respiratory: Clear to auscultation, and no wheezes or rales or rubs. Cardiovascular: RRR, S1 and S2 normal, no M/G/R. No JVD. Abdomen: Soft, NTND, BS normal, no palpable organomegaly, no hernia, no palpable masses. Extremities: No LE pitting edema. Lymphatic: no palpable lymph nodes in the neck, axillae Musculoskeletal: normal gait and station Skin: no rashes, no ulcers, no petechiae Neurological: AOx3, CN II-XII grossly intact. No focal motor or sensory deficit. Psychiatric: Good judgment and insight; normal affect; normal thought process; cooperative, no depression, no anxiety. Breast Exam: Right breast: No nipple retraction, no palpable masses or nodules, no skin changes, and no lymph nodes in the right axilla; left breast: Nipple is absent status post previous lumpectomy, no palpable nodes or masses, no palpable lymph nodes in the left axilla. All physical examinations were chaperoned. Results - Labs Laboratory Last Values WBC 7.4 X10^3/uL (4.5-11.0) 05/15/19 11:15 RBC 3.69 X10^6/uL (4.0-5.2) L 05/15/19 11:15 Hgb 12.7 g/dL (12.0-16.0) 05/15/19 11:15 Hct 35.6 % (36-46) L 05/15/19 11:15 MCV 96.3 fL (80-100) 05/15/19 11:15 MCH 34.5 PG (26-34) H 05/15/19 11:15 MCHC 35.8 % (30-36) 05/15/19 11:15 RDW 11.3 % (11.6-14.8) L 05/15/19 11:15 Plt Count 340 X10^3/uL (150-400) 05/15/19 11:15 Neut % (Auto) 64.6 % (50-75) 05/15/19 11:15 Lymph % (Auto) 25.3 % (25-40) 05/15/19 11:15 [place] % (Auto) 7.2 % (3-14) 05/15/19 11:15 Eos % (Auto) 2.1 % (2-4) 05/15/19 11:15 Baso % (Auto) 0.8 % (0-2) 05/15/19 11:15 Neut # (Auto) 4800 /uL (2830-9799) 05/15/19 11:15 Lymph # (Auto) 1900 /uL (3342-2429) 05/15/19 11:15 [place] # (Auto) 500 /uL (0-900) 05/15/19 11:15 Eos # (Auto) 200 /uL (0-450) 05/15/19 11:15 Baso # (Auto) 100 /uL (0-100) 05/15/19 11:15 Sodium 137 mmol/L (137-145) 05/15/19 11:15 Potassium 3.4 mmol/L (3.4-5.1) 05/15/19 11:15 Chloride 97 mmol/L (98-107) L 05/15/19 11:15 Carbon Dioxide 26 mmol/L (22-32) 05/15/19 11:15 BUN 16 mg/dL (7-17) 05/15/19 11:15 Creatinine 0.90 mg/dL (0.52-1.04) 05/15/19 11:15 Estimated GFR > 60.0 mL/min (>60) 05/15/19 11:15 BUN/Creatinine Ratio 17.8 (6-22) 05/15/19 11:15 Glucose 135 mg/dL (70-100) H 05/15/19 11:15 Calcium 9.4 mg/dL (8.4-10.2) 05/15/19 11:15 Total Bilirubin 0.8 mg/dL (0.2-1.3) 05/15/19 11:15 AST 35 IU/L (14-36) 05/15/19 11:15 ALT 36 IU/L (9-52) 05/15/19 11:15 Alkaline Phosphatase 48 U/L (38-126) 05/15/19 11:15 Total Protein 7.6 g/dL (6.3-8.2) 05/15/19 11:15 Albumin 4.4 g/dL (3.5-5.0) 05/15/19 11:15 Globulin 3.2 g/dL (1.7-4.1) 05/15/19 11:15 Albumin/Globulin Ratio 1.4 (1.0-2.8) 05/15/19 11:15 CA 27-29 27 U/mL (< 38) 11/14/18 09:01 - Imaging Additional studies: Procedures Excision of axillary lymph node (05/23/14) Subtotal mastectomy (05/23/14) Assessment and Plan (1) Breast cancer Overview: Left breast, IDC, pT1c pN0i Mx (stage I), IDC, ER+, AL+, Ki67 intermediate, HER2-, 1.8 cm. Status post lumpectomy (05/23/2014); Oncotype Dx score 13; adjuvant radiation completed 09/07/14. She was on letrozole until 11/2017 when she stopped due to severe left hip pain which resolved after drug holiday. She tried letrozole once again unfortunately she again developed intolerable join pain subsequently transition to tamoxifen beginning January of 2018. Assessment: Up until now, patient completed 5 years of endocrine therapy including initially letrozole later switched to tamoxifen. Overall patient has tolerated well. Clinically I do not think there is any evidence of disease recurrence or metastasis. Most recent mammogram on 05/10/2019 showed no evidence of malignancy. I talked with the patient that since she has a low risk hormone receptor-positive, node negative, invasive ductal carcinoma with Oncotype DX score of 13, I would recommend 5 years of treatment. Patient can stop the tamoxifen any time from now. Then we will continue once a year mammogram and clinical follow-up. Plan: Stop Tamoxifen RTC in one year, mammogram, CBC, CMP
[2019-05-18 16:14] VITALS: BP 114/73; PULSE 91; RESP 18; TEMP 36.6; O2SAT 96
--- NOTE | 2019-06-01 16:53 | ONC.SCHED ---
Called patient to schedule and she said she would call us back next week to schedule her follow up and mammo for April 2020
== END ==
PROVIDERS: Nurse Practitioner Gerontology; PCP Physician Assistant; Visit Provider Internal Medicine Hematology & Oncology
DX: C50.912 Malignant neoplasm of unspecified site of left female breast (principal); Z17.0 Estrogen receptor positive status [ER+]; Z79.810 Long term (current) use of selective estrogen receptor modulators (SERMs)
CPT/HCPCS: 36415; 80053; 85025; 86300; 99214

== ENCOUNTER → 2020-05-13 16:28 | Outpatient (CLI) | payer OTHER, SELFPAY ==
[2018-10-04 19:01] VITALS: BMI 37.5
--- NOTE | 2020-05-13 | DI.MG.S_ITS ---
BILATERAL DIGITAL SCREENING MAMMOGRAM 3D/2D WITH CAD: 05/13/2020 CLINICAL: Routine screening. Breast cancer. Comparison is made to exams dated: 05/10/2019 mammogram, 05/09/2018 mammogram, and 05/05/2017 mammogram - [facility]. There are scattered fibroglandular elements in both breasts. Current study was also evaluated with a Computer Aided Detection (CAD) system. There are benign post operative findings in the left breast. No significant masses, calcifications, or other findings are seen in either breast. There has been no significant interval change. IMPRESSION: BENIGN There is no mammographic evidence of malignancy. A 1 year screening mammogram is recommended. This exam was interpreted at Station ID: [id number]. NOTE: For mammograms, a report in lay terms will be sent to the patient. Approximately 15% of breast malignancies will not be visualized mammographically. In the management of a palpable breast mass, a negative mammogram must not discourage biopsy of a clinically suspicious lesion. Electronically Signed By: Gio piña/bre:05/16/2020 09:16:32 letter sent: Normal Exam ACR BI-RADS Category 2: Benign Finding(s) 3342F
== END ==
PROVIDERS: Referring Provider Internal Medicine; Visit Provider Internal Medicine
DX: Z12.31 Encounter for screening mammogram for malignant neoplasm of breast (principal); Z85.3 Personal history of malignant neoplasm of breast
CPT/HCPCS: 77063; 77066; 77067; G0279

== ENCOUNTER → 2020-05-27 15:01 | Outpatient (CLI) | payer OTHER, SELFPAY ==
[2018-10-04 19:01] VITALS: BMI 37.5
--- NOTE | 2020-05-27 | DI.RAD.S_ITS ---
PROCEDURE: XR HIP W PEL IF DONE RT 2V INDICATIONS: Right Hip Pain/HX of Left Hip Replacement TECHNIQUE: AP pelvis with lateral view(s) of the right hip(s). COMPARISON: [facility], , XR HIP W PEL IF DONE LT 2V, 10/04/2018, 18:39. FINDINGS: Bones: No fractures or dislocations. Prior left total hip arthroplasty 10/04/18. The current imaging shows that device to remain intact without evidence of loosening or disruption. At the right hip there is a mild degree of degenerative osteoarthritis, perhaps slightly worsened from the comparison study in September of last year. No acute trauma on the right is found. Pelvic ring appears intact. No suspicious bony lesions. Soft tissues: The visualized bowel gas pattern is normal. No suspicious soft tissue calcifications. IMPRESSION: Prior left total hip arthroplasty appears normal. Mild degenerative osteoarthritis at the right hip, with slight worsening likely present from the comparison study in September of 2018. Dictated by: Chirag Dillon M.D. on 05/27/2020 at 17:03 Approved by: Chirag Dillon M.D. on 05/27/2020 at 17:04
== END ==
PROVIDERS: PCP Internal Medicine; Referring Provider Internal Medicine; Visit Provider Internal Medicine
DX: M25.551 Pain in right hip (principal); M16.11 Unilateral primary osteoarthritis, right hip; Z96.642 Presence of left artificial hip joint
CPT/HCPCS: 73502

== ENCOUNTER → 2020-06-05 16:53 | Outpatient (CLI) | payer OTHER, SELFPAY ==
[2018-10-04 19:01] VITALS: BMI 37.5
--- NOTE | 2020-06-05 | DI.RAD.S_ITS ---
PROCEDURE: XR ANKLE LT MIN 3V INDICATIONS: LEFT CALF/ANKLE PAIN, R/O DVT TECHNIQUE: Three views of the ankle were acquired. COMPARISON: None. FINDINGS: Bones: No fractures or dislocations. Ankle mortise is normally aligned. No suspicious bony lesions. Soft tissues: No tibiotalar joint effusion. Achilles tendon appears normal. IMPRESSION: Intact right ankle. Dictated by: Kimmie Small M.D. on 06/05/2020 at 18:20 Approved by: Kimmie Small M.D. on 06/05/2020 at 18:20
--- NOTE | 2020-06-05 | DI.US.S_ITS ---
PROCEDURE: US PERIPH VENOUS LOW EXTREM LT INDICATIONS: PAIN IN LEFT LOWER LEG TECHNIQUE: Real-time imaging, as well as color and pulse Doppler interrogation, were performed of the lower extremity deep veins from the inguinal ligament to the popliteal fossa. COMPARISON: None. FINDINGS: The common femoral, femoral and popliteal veins are normally compressible, and free of intraluminal thrombus. Color and pulse Doppler demonstrate normal phasic intraluminal flow. There is normal augmentation response to distal compression maneuver. IMPRESSION: No evidence of deep venous thrombosis. Dictated by: Chato Ford M.D. on 06/06/2020 at 9:32 Approved by: Chato Ford M.D. on 06/06/2020 at 9:32
== END ==
PROVIDERS: PCP Internal Medicine; Referring Provider Internal Medicine; Visit Provider Internal Medicine
DX: M79.662 Pain in left lower leg (principal)
CPT/HCPCS: 73610; 93971

== ENCOUNTER → 2020-12-11 08:07 | Outpatient (CLI) | payer OTHER, SELFPAY ==
[2018-10-04 19:01] VITALS: BMI 37.5
[2020-12-11] MEDS: COVID-19 VACC #1, MRNA(MOD) 100 MCG/0.5 ML VIAL IM (08:19)
== END ==
PROVIDERS: PCP Internal Medicine; Visit Provider Internal Medicine
DX: Z23 Encounter for immunization (principal)
CPT/HCPCS: 0011A; 91301

== ENCOUNTER → 2021-01-08 07:58 | Outpatient (CLI) | payer OTHER, SELFPAY ==
[2018-10-04 19:01] VITALS: BMI 37.5
[2021-01-08] MEDS: COVID-19 VACC #2, MRNA(MOD) 100 MCG/0.5 ML VIAL IM (08:04)
== END ==
PROVIDERS: PCP Internal Medicine; Visit Provider Internal Medicine
DX: Z23 Encounter for immunization (principal)
CPT/HCPCS: 0012A; 91301

== ENCOUNTER → 2021-05-14 15:02 | Outpatient (CLI) | payer OTHER, SELFPAY ==
[2018-10-04 19:01] VITALS: BMI 37.5
--- NOTE | 2021-05-14 | DI.MG.S_ITS ---
BILATERAL DIGITAL SCREENING MAMMOGRAM 3D/2D WITH CAD: 05/14/2021 CLINICAL: Routine screening. Personal history of right breast cancer. Comparison is made to exams dated: 05/13/2020 mammogram, 05/10/2019 mammogram, and 05/09/2018 mammogram - [facility]. There are scattered fibroglandular elements in both breasts. Current study was also evaluated with a Computer Aided Detection (CAD) system. There are benign post operative findings in the left breast. No significant masses, calcifications, or other findings are seen in either breast. There has been no significant interval change. IMPRESSION: BENIGN There is no mammographic evidence of malignancy. A 1 year screening mammogram is recommended. This exam was interpreted at Station ID: [id number]. NOTE: For mammograms, a report in lay terms will be sent to the patient. Approximately 15% of breast malignancies will not be visualized mammographically. In the management of a palpable breast mass, a negative mammogram must not discourage biopsy of a clinically suspicious lesion. Electronically Signed By: James bernard/bre:05/14/2021 16:04:46 letter sent: Normal Exam ACR BI-RADS Category 2: Benign Finding(s) 3342F
== END ==
PROVIDERS: PCP Internal Medicine; Referring Provider Internal Medicine; Visit Provider Internal Medicine
DX: Z12.31 Encounter for screening mammogram for malignant neoplasm of breast (principal); Z85.3 Personal history of malignant neoplasm of breast
CPT/HCPCS: 77063; 77067

== ENCOUNTER → 2022-03-31 13:18 | Outpatient (CLI) | payer OTHER, SELFPAY ==
[2018-10-04 19:01] VITALS: BMI 37.5
--- NOTE | 2022-03-31 | DI.RAD.S_ITS ---
PROCEDURE: XR HAND LT MIN 3V INDICATIONS: LEFT HAND PAIN TECHNIQUE: 3 views of the hand(s) acquired. COMPARISON: None. FINDINGS: Bones: No acute fractures or dislocations. Carpal bones are normally aligned. No suspicious bony lesions. Soft tissues: 1-2 mm linear density projects over the soft tissues of the 2nd digit distally along its radial and dorsal aspect. IMPRESSION: 1. No acute fracture visualized. 2. A tiny, 1-2 mm density projects over the soft tissues of the 2nd distal digit distally, potentially an object external to the patient or a tiny foreign body. Dictated by: James Ramos M.D. on 03/31/2022 at 18:59 Approved by: James Ramos M.D. on 03/31/2022 at 19:06
== END ==
PROVIDERS: PCP Internal Medicine; Referring Provider Internal Medicine; Visit Provider Internal Medicine
DX: M25.542 Pain in joints of left hand (principal)
CPT/HCPCS: 73130

== ENCOUNTER → 2022-06-02 07:59 | Outpatient (CLI) | payer OTHER, SELFPAY ==
[2018-10-04 19:01] VITALS: BMI 37.5
--- NOTE | 2022-06-02 | DI.MG.S_ITS ---
BILATERAL DIGITAL SCREENING MAMMOGRAM 3D/2D WITH CAD: 06/02/2022 CLINICAL: Routine screening. Breast cancer. Comparison is made to exams dated: 05/14/2021 mammogram, 05/13/2020 mammogram, and 05/10/2019 mammogram - [facility]. There are scattered areas of fibroglandular density in both breasts (category b / 25%-50% glandular tissue). Current study was also evaluated with a Computer Aided Detection (CAD) system. There are benign post operative findings in the left breast. No significant masses, calcifications, or other findings are seen in either breast. There has been no significant interval change. IMPRESSION: BENIGN There is no mammographic evidence of malignancy. A 1 year screening mammogram is recommended. This exam was interpreted at Station ID: [id number]. NOTE: For mammograms, a report in lay terms will be sent to the patient. Approximately 15% of breast malignancies will not be visualized mammographically. In the management of a palpable breast mass, a negative mammogram must not discourage biopsy of a clinically suspicious lesion. Electronically Signed By: Lul benson/bre:06/02/2022 09:21:05 letter sent: Normal Exam ACR BI-RADS Category 2: Benign Finding(s) 3342F
== END ==
PROVIDERS: PCP Internal Medicine; Referring Provider Internal Medicine; Visit Provider Internal Medicine
DX: Z12.31 Encounter for screening mammogram for malignant neoplasm of breast (principal); Z85.3 Personal history of malignant neoplasm of breast
CPT/HCPCS: 77063; 77067

== ENCOUNTER → 2023-06-10 15:53 | Outpatient (CLI) | payer OTHER, SELFPAY ==
[2018-10-04 19:01] VITALS: BMI 37.5
--- NOTE | 2023-06-10 15:54 | DI.MG.S_ITS ---
BILATERAL DIGITAL SCREENING MAMMOGRAM 3D/2D WITH CAD POST LUMPECTOMY: 06/10/2023 CLINICAL: Routine screening. Personal history of left breast cancer. Comparison is made to exams dated: 06/02/2022 mammogram, 05/14/2021 mammogram, and 05/13/2020 mammogram - [facility]. There are scattered areas of fibroglandular density in both breasts (category b / 25%-50% glandular tissue). Current study was also evaluated with a Computer Aided Detection (CAD) system. The left breast has post-operative findings. There is a possible developing new 0.6 cm oval equal density focal asymmetry in the left breast at 1 o'clock middle depth. No other significant masses, calcifications, or other findings are seen in either breast. IMPRESSION: INCOMPLETE: NEEDS ADDITIONAL IMAGING EVALUATION The possible developing new 0.6 cm oval equal density focal asymmetry in the left breast is indeterminate. Additional views with possible ultrasound are recommended. This exam was interpreted at Station ID: [id number]. NOTE: For mammograms, a report in lay terms will be sent to the patient. Approximately 15% of breast malignancies will not be visualized mammographically. In the management of a palpable breast mass, a negative mammogram must not discourage biopsy of a clinically suspicious lesion. Electronically Signed By: Gio Simmons M.D. aty/:06/11/2023 14:22:08 letter sent: Additional Imaging Needed ACR BI-RADS Category 0: Incomplete [id number]
== END ==
PROVIDERS: Family Provider Internal Medicine; PCP Internal Medicine; Referring Provider Internal Medicine; Visit Provider Internal Medicine
DX: Z12.31 Encounter for screening mammogram for malignant neoplasm of breast (principal); Z85.3 Personal history of malignant neoplasm of breast
CPT/HCPCS: 77063; 77067

== ENCOUNTER → 2023-06-24 09:30 | Outpatient (CLI) | payer OTHER, SELFPAY ==
[2018-10-04 19:01] VITALS: BMI 37.5
--- NOTE | 2023-06-24 09:31 | DI.US.S_ITS ---
LIMITED ULTRASOUND OF LEFT BREAST AND AXILLA: 06/24/2023 CLINICAL: Patient returns today to evaluate an asymmetry in the left breast. Comparison is made to exams dated: 06/24/2023 mammogram, 06/10/2023 mammogram, 06/02/2022 mammogram, 05/14/2021 mammogram, 05/13/2020 mammogram, and 05/10/2019 mammogram - [facility]. Color flow and real-time ultrasound of the left breast 1 o'clock, and axilla regions were performed. Gibbons scale images of the real-time examination were reviewed. There is a 0.5 cm x 0.4 cm x 0.4 cm cyst in the left breast at 1 o'clock middle depth 4 cm from the nipple. This cyst is hypoechoic. This correlates with mammography findings. Color flow imaging demonstrates that there is no vascularity present. No significant abnormalities were seen sonographically in the left axilla. IMPRESSION: PROBABLY BENIGN The 0.5 cm cyst in the left breast is consistent with a complicated cyst and is probably benign. A follow-up mammogram and an ultrasound in 6 months is recommended to demonstrate stability. No enlarged left axillary lymph nodes. Exam findings were conveyed to the patient. This exam was interpreted at Station ID: [id number]. Electronically Signed By: Michael Graf M.D. slc/:06/24/2023 11:06:01 letter sent: Followup Recommended Ultrasound BI-RADS: 3 Probably benign
--- NOTE | 2023-06-24 09:31 | DI.MG.S_ITS ---
UNILATERAL LEFT DIGITAL DIAGNOSTIC MAMMOGRAM 3D/2D WITH ADDITIONAL VIEWS: 06/24/2023 CLINICAL: Additional evaluation requested from prior study. Comparison is made to exams dated: 06/10/2023 mammogram, 06/02/2022 mammogram, 05/14/2021 mammogram, 05/13/2020 mammogram, and 05/10/2019 mammogram - [facility]. There are scattered areas of fibroglandular density in the left breast (category b / 25%-50% glandular tissue). The left breast has post-operative findings. There is a 0.5 cm oval focal asymmetry in the left breast at 1 o'clock middle depth. No other significant masses or calcifications are seen in the breast. IMPRESSION: INCOMPLETE: NEEDS ADDITIONAL IMAGING EVALUATION The 0.5 cm oval focal asymmetry in the left breast resembles a cyst and is indeterminate. A targeted ultrasound is recommended and will immediately follow. This exam was interpreted at Station ID: [id number]. NOTE: For mammograms, a report in lay terms will be sent to the patient. Approximately 15% of breast malignancies will not be visualized mammographically. In the management of a palpable breast mass, a negative mammogram must not discourage biopsy of a clinically suspicious lesion. Electronically Signed By: Michael Graf M.D. slc/:06/24/2023 09:56:34 ACR BI-RADS Category 0: Incomplete [id number]
== END ==
PROVIDERS: Family Provider Internal Medicine; PCP Internal Medicine; Referring Provider Internal Medicine; Visit Provider Internal Medicine
DX: R92.8 Other abnormal and inconclusive findings on diagnostic imaging of breast (principal); N60.02 Solitary cyst of left breast
CPT/HCPCS: 76642; 77065; G0279

== ENCOUNTER 2023-07-05 08:30 | Outpatient (RCR) | payer OTHER, SELFPAY ==
[2018-10-04 19:01] VITALS: BMI 37.5
--- NOTE | 2023-05-10 11:30 | PT.OIE ---
Current Diagnoses Unilateral primary osteoarthritis, right hip (05/10/23) Lumbago with sciatica, right side (05/10/23) Past Medical History (Last Reviewed 04/07/23 @ 08:35 by Janine Pacheco PA-C) Acid reflux Breast cancer, left HTN (hypertension) Osteoarthritis Seasonal allergies Situational anxiety Past Surgical History (Last Reviewed 04/07/23 @ 08:35 by Janine Pacheco PA-C) Hx of hernia repair S/P lumpectomy, left breast (05/23/14) Visit Care Team Role Provider Type MATTHEW [place] Attending Provider Advanced Property Claims Adjuster Family Provider Primary Care Provider Referring Provider Specialty: Family Practice Address: [address] [place] [address], [facility] [place], [facility] Email: [email or web address] Physical Therapy Initial Evaluation PT-OP-A Visit Information Start: 05/10/23 09:34 Freq: Status: Active Protocol: Document 05/10/23 09:35 AB (Rec: 05/10/23 11:26 AB [id number]) Out-Patient Physical Therapy Visit Information Visit Information Visit Type Initial Evaluation Visit Start Time 08:30 Visit Stop Time 09:15 Total Visit Minutes 45 Visit Number 1 Number of TREE PLANTER Visits 0 Evaluation Information Evaluation Date 05/10/23 Precautions Precautions HTN (controlled by medications ) PT-OP-B Current Condition Start: 05/10/23 09:34 Freq: Status: Active Protocol: Document 05/10/23 09:35 AB (Rec: 05/10/23 11:26 AB [id number]) Current Condition History of Current Condition Onset Date 04/06/23 Current Complaints Occasional twinges in her low back, N/T occasionally down lateral RLE History of Current Condition Pt reports she was performing hip lifts as a part of her exercise routine, when she felt a twing in her right low back. For two days afterwards she continued with tightness and pain on that side which progressed to N/T over her right gluteal region and lateral thigh. She took tylenol and use ice with minimal improvement. However, since then her symptoms have significantly improved, and she now only experiences these twinges occasionally and randomly (1/10 at worst). She cannot think of specific movements that cause onset of symptoms. The pt also reports she is a candidate for R JOE, but she is being followed by ortho surgeon to determine when she will be needing JOE. Though she notes her R hip sometimes causes 7/10 pain when she is active. Prior Treatments and Tests None Treatment Goals Patient/Caregiver Goals To fully resolve her symptoms and build up her strength. Prior Functional Status Baseline Function- ADL's Independent Baseline Function- Mobility Independent Baseline Function- Other IND with all ADLs, IADLs, work and recreational activities. Current Functional Impairments (Reported) Functional Limitations- Recreation/ She is not performing her Hobbies exercise routine and is limiting heavier IADLs to avoid aggravating her symptoms . PT-OP-C Subjective Start: 05/10/23 09:34 Freq: Status: Active Protocol: Document 05/10/23 09:35 AB (Rec: 05/10/23 11:26 AB [id number]) OP-PT Subjective Patient Comments Patient Comments See hx of current condition Patient Reported Progress Improving Patient Questionnaires Lower Extremity Functional Scale LEFS Impairment 40 to 59% Impaired (Score 32- 47) Oswestry Low Back Index Oswestry Score 13/50 Oswestry Impairment 20 to 39% Impaired (Score 20- 39) PT-OP-F Manual Assessment Start: 05/10/23 09:34 Freq: Status: Active Protocol: Document 05/10/23 09:35 AB (Rec: 05/10/23 11:26 AB [id number]) Manual Assessments Other Manual Assessments Other Manual Assessments Right Slump Test: negative PT-OP-H Neuro Start: 05/10/23 09:34 Freq: Status: Active Protocol: Document 05/10/23 09:35 AB (Rec: 05/10/23 11:26 AB [id number]) Sensation Evaluation Gross Sensation Gross Sensation WNL PT-OP-J Posture/Palpation/Skin Start: 05/10/23 09:34 Freq: Status: Active Protocol: Document 05/10/23 09:35 AB (Rec: 05/10/23 11:26 AB [id number]) Palpation Assessment Location Two Palpation Location Right gluteal region Palpation Findings Tenderness One Palpation Location left lumbar paraspinals Palpation Findings Tenderness Palpation Details From T12 to PSIS PT-OP-K Range of Motion Start: 05/10/23 09:34 Freq: Status: Active Protocol: Document 05/10/23 09:35 AB (Rec: 05/10/23 11:26 AB [id number]) Lumbar Spine Range of Motion Lumbar Spine Active Testing Position Standing Extension 20 Rotation Left 30 Rotation Right 30 Comments flexion to distal shins ( reports tightness over left lumbar paraspinals) SB bilaterally to fibular head PT-OP-M Strength Start: 05/10/23 09:34 Freq: Status: Active Protocol: Document 05/10/23 09:35 AB (Rec: 05/10/23 11:26 AB [id number]) Hip Strength Hip Manual Muscle Testing Right Flexion (L2) 3+ Fair+ Extension (S1) 3+ Fair+ Abduction 4- Good- Adduction 4- Good- External Rotation 3+ Fair+ Internal Rotation 4- Good- Comments Pain with hip ER Left Flexion (L2) 4- Good- Extension (S1) 3+ Fair+ Abduction 4- Good- Adduction 4- Good- External Rotation 4- Good- Internal Rotation 4- Good- Knee Strength Knee Manual Muscle Testing Right Flexion (S2) 4+ Good+ Extension (L3) 4+ Good+ Left Flexion (S2) 4+ Good+ Extension (L3) 4+ Good+ Ankle/Foot Strength Ankle and Foot Manual Muscle Testing Right Dorsiflexion (L4) 5 Normal Plantarflexion (S1) 5 Normal Left Dorsiflexion (L4) 5 Normal Plantarflexion (S1) 5 Normal PT-OP-Q Treatments Start: 05/10/23 09:34 Freq: Status: Active Protocol: Document 05/10/23 09:35 AB (Rec: 05/10/23 11:26 AB [id number]) Therapeutic Exercises Supine Exercises 3 Supine Exercise Name Marching + TrA brace Reps/Minutes x10 2 Supine Exercise Name Glute set/heel press + TrA brace Reps/Minutes 1x10, 5 sec holds 1 Supine Exercise Name Lumbar trunk rotation Side bilateral Reps/Minutes 3 mins; 3-5 sec holds Sidelying Exercises 1 Sidelying Exercise Name Sl clamshells Side right Reps/Minutes x10 Comments to be performed bilaterally PT-OP-T Assessment and Plan Start: 05/10/23 09:34 Freq: Status: Active Protocol: Document 05/10/23 09:35 AB (Rec: 05/10/23 11:26 AB [id number]) Physical Therapy Assessment Rehab Potential Rehabilitation Potential Good Evaluation Complexity Number of Personal Factors/Comorbidities 1-2 Number of Body Systems Impaired 1-2 Clinical Presentation at Evaluation Stable Impairments Impairments Pain,ROM,Strength Goals Five Impairment Pain symptoms Short Term Goal (STG) Pt to report no TTP over left lateral paraspinals to show improving pain symptoms and soft tissue mobility. STG Duration 4 Fci Goal (LTG) Pt to report no TTP over left lateral paraspinals or right gluteal region to show resolution of pain symptoms and improved soft tissue mobility. LTG Duration 6 Four Impairment Outcome Measures (subjective symptom report) Short Term Goal (STG) Pt's LEFS score to improve to 26/80 or better and Modified Oswestry score to improve to 8 /50 or better to show improving symptoms and QOL. STG Duration 4 Fci Goal (LTG) Pt's LEFS score to improve to 40/80 or better and Modified Oswestry score to improve to 5 /50 or better to show improving symptoms and QOL. LTG Duration 6 Three Impairment Muscular weakness Short Term Goal (STG) Pt's gross LE MMT to improve to 4+/5 to show improving strength to perform ADLs, IADLs and other functional mobility. STG Duration 4 Fci Goal (LTG) Pt's gross LE MMT to improve to 5/5 to show improved strength to perform ADLs, IADLs, other functional mobility and to participate in recreational activities. LTG Duration 6 Two Impairment Lumbar spine AROM deficits Short Term Goal (STG) Pt's lumbar spine rotation AROM to improve to 40 degrees to improve ability to perform ADLs and IADLs. STG Duration 4 Demo Coordinator Goal (LTG) Pt's lumbar spine rotation AROM to improve to 50 degrees to improve ability to perform ADLs, IADLs and recreational activities. LTG Duration 6 One Impairment Lumbar spine AROM deficits Short Term Goal (STG) Pt's lumbar spine flexion AROM to improve to ankles to be able to perform ADLs and IADLs with increased ease. STG Duration 4 Demo Coordinator Goal (LTG) Pt's lumbar AROM flexion to improve to ankles with minimal to no symptoms to be able to perform ADLs, IADLs and recreational activities. LTG Duration 6 Assessment Summary Assessment Mari Sharp is a 62 year old female presenting to outpatient PT with complaints of low back and right hip pain that started on 04/06/23 while performing some exercises. Today's PT examination revealed findings consistent with a muscle strain as well as symptoms related to right hip OA, including lumbar spine AROM deficits, LE weakness and pain symptoms that were reproduced with AROM and MMT testing. Based on these findings, the pt would benefit from skilled PT to improve these deficits in order to improve her level of function and improve her symptoms. Physical Therapy Plan Frequency and Duration Frequency of Treatment 2x/Week Duration of treatment (weeks) 6 Plan of Care Start Date 05/10/23 Plan of Care End Date 06/21/23 Therapeutic Interventions Therapeutic Interventions Balance Training,Gait Training ,Home Exercise Program,Joint Mobilizations,Manual Therapy, Neuromuscular Re-education, Patient/Caregiver Education, Self-Care/Home Management,Soft Tissue Mobilization,Taping, Therapeutic Activities, Therapeutic Exercises Modalities Cold Pack/Ice Massage,Electric Stimulation Next Visit Focus/Plan Next Note Type Treatment Note Next Visit Plan Review HEP. Add LE strength and neuromuscular re-ed exercises, and perform manual therapy as indicated to improve symptoms. Assess gait mechanics and HS mobility as indicated.
--- NOTE | 2023-05-10 11:30 | PT.OPPOC ---
Physical, Occupational & Speech Therapy At [facility] Current Diagnoses Unilateral primary osteoarthritis, right hip (05/10/23) Lumbago with sciatica, right side (05/10/23) Visit Care Team Role Provider Type MATTHEW [place] Attending Provider Advanced Armor Reconnaissance Vehicle Driver Family Provider Primary Care Provider Referring Provider Specialty: Family Practice Address: [address] [place] [address], [facility] [place], [facility] Email: Plan Of Care PT-OP-T Assessment and Plan Start: 05/10/23 09:34 Freq: Status: Active Protocol: Document 05/10/23 09:35 AB (Rec: 05/10/23 11:26 AB [id number]) Physical Therapy Assessment Rehab Potential Rehabilitation Potential Good Evaluation Complexity Number of Personal Factors/Comorbidities 1-2 Number of Body Systems Impaired 1-2 Clinical Presentation at Evaluation Stable Impairments Impairments Pain,ROM,Strength Goals Five Impairment Pain symptoms Short Term Goal (STG) Pt to report no TTP over left lateral paraspinals to show improving pain symptoms and soft tissue mobility. STG Duration 4 Usp Goal (LTG) Pt to report no TTP over left lateral paraspinals or right gluteal region to show resolution of pain symptoms and improved soft tissue mobility. LTG Duration 6 Four Impairment Outcome Measures (subjective symptom report) Short Term Goal (STG) Pt's LEFS score to improve to 26/80 or better and Modified Oswestry score to improve to 8 /50 or better to show improving symptoms and QOL. STG Duration 4 Book Store Associate Goal (LTG) Pt's LEFS score to improve to 40/80 or better and Modified Oswestry score to improve to 5 /50 or better to show improving symptoms and QOL. LTG Duration 6 Three Impairment Muscular weakness Short Term Goal (STG) Pt's gross LE MMT to improve to 4+/5 to show improving strength to perform ADLs, IADLs and other functional mobility. STG Duration 4 Usp Goal (LTG) Pt's gross LE MMT to improve to 5/5 to show improved strength to perform ADLs, IADLs, other functional mobility and to participate in recreational activities. LTG Duration 6 Two Impairment Lumbar spine AROM deficits Short Term Goal (STG) Pt's lumbar spine rotation AROM to improve to 40 degrees to improve ability to perform ADLs and IADLs. STG Duration 4 Usp Goal (LTG) Pt's lumbar spine rotation AROM to improve to 50 degrees to improve ability to perform ADLs, IADLs and recreational activities. LTG Duration 6 One Impairment Lumbar spine AROM deficits Short Term Goal (STG) Pt's lumbar spine flexion AROM to improve to ankles to be able to perform ADLs and IADLs with increased ease. STG Duration 4 Usp Goal (LTG) Pt's lumbar AROM flexion to improve to ankles with minimal to no symptoms to be able to perform ADLs, IADLs and recreational activities. LTG Duration 6 Assessment Summary Assessment Mari Sharp is a 62 year old female presenting to outpatient PT with complaints of low back and right hip pain that started on 04/06/23 while performing some exercises. Today's PT examination revealed findings consistent with a muscle strain as well as symptoms related to right hip OA, including lumbar spine AROM deficits, LE weakness and pain symptoms that were reproduced with AROM and MMT testing. Based on these findings, the pt would benefit from skilled PT to improve these deficits in order to improve her level of function and improve her symptoms. Physical Therapy Plan Frequency and Duration Frequency of Treatment 2x/Week Duration of treatment (weeks) 6 Plan of Care Start Date 05/10/23 Plan of Care End Date 06/21/23 Therapeutic Interventions Therapeutic Interventions Balance Training,Gait Training ,Home Exercise Program,Joint Mobilizations,Manual Therapy, Neuromuscular Re-education, Patient/Caregiver Education, Self-Care/Home Management,Soft Tissue Mobilization,Taping, Therapeutic Activities, Therapeutic Exercises Modalities Cold Pack/Ice Massage,Electric Stimulation Next Visit Focus/Plan Next Note Type Treatment Note Next Visit Plan Review HEP. Add LE strength and neuromuscular re-ed exercises, and perform manual therapy as indicated to improve symptoms. Assess gait mechanics and HS mobility as indicated. Plan of Care Dates Plan of Care Start Date 05/10/23 Plan of Care End Date 06/21/23 Electronically Signed by: Shaquille Sahu PT 05/10/23 2574 If you are in agreement with this Plan of Care, please return a signed and dated copy. I have reviewed this Plan of Care and certify that the skilled therapy services above are required to meet the patient?s needs. Physician Signature Date Printed Name and Credentials Clinical Instructor Signature Printed Name and Credentials
--- NOTE | 2023-05-12 17:06 | PT.OTN ---
Current Diagnoses Unilateral primary osteoarthritis, right hip (05/12/23) Lumbago with sciatica, right side (05/12/23) Physical Therapy Treatment Note PT-OP-A Visit Information Start: 05/10/23 09:34 Freq: Status: Active Protocol: Document 05/12/23 16:13 AB (Rec: 05/12/23 17:06 AB [id number]) Out-Patient Physical Therapy Visit Information Visit Information Visit Type Treatment Note Visit Start Time 16:15 Visit Stop Time 17:00 Total Visit Minutes 45 Visit Number 2 Number of ADVENTURE THERAPIST Visits 0 PT-OP-B Current Condition Start: 05/10/23 09:34 Freq: Status: Active Protocol: Document 05/10/23 09:35 AB (Rec: 05/10/23 11:26 AB [id number]) Current Condition History of Current Condition Onset Date 04/06/23 Current Complaints Occasional twinges in her low back, N/T occasionally down lateral RLE History of Current Condition Pt reports she was performing hip lifts as a part of her exercise routine, when she felt a twing in her right low back. For two days afterwards she continued with tightness and pain on that side which progressed to N/T over her right gluteal region and lateral thigh. She took tylenol and use ice with minimal improvement. However, since then her symptoms have significantly improved, and she now only experiences these twinges occasionally and randomly (1/10 at worst). She cannot think of specific movements that cause onset of symptoms. The pt also reports she is a candidate for R JOE, but she is being followed by ortho surgeon to determine when she will be needing JOE. Though she notes her R hip sometimes causes 7/10 pain when she is active. Prior Treatments and Tests None Treatment Goals Patient/Caregiver Goals To fully resolve her symptoms and build up her strength. Prior Functional Status Baseline Function- ADL's Independent Baseline Function- Mobility Independent Baseline Function- Other IND with all ADLs, IADLs, work and recreational activities. Current Functional Impairments (Reported) Functional Limitations- Recreation/ She is not performing her Hobbies exercise routine and is limiting heavier IADLs to avoid aggravating her symptoms . PT-OP-C Subjective Start: 05/10/23 09:34 Freq: Status: Active Protocol: Document 05/12/23 16:13 AB (Rec: 05/12/23 17:06 AB [id number]) OP-PT Subjective Patient Comments Patient Comments Pt reports she has been complaint with her HEP without much of an issue. OVerall she felt like she is improving a bit but this morning she felt increased pain which was not relieved until she got up and moved around. Patient Reported Progress Improving PT-OP-F Manual Assessment Start: 05/10/23 09:34 Freq: Status: Active Protocol: Document 05/10/23 09:35 AB (Rec: 05/10/23 11:26 AB [id number]) Manual Assessments Other Manual Assessments Other Manual Assessments Right Slump Test: negative PT-OP-H Neuro Start: 05/10/23 09:34 Freq: Status: Active Protocol: Document 05/10/23 09:35 AB (Rec: 05/10/23 11:26 AB [id number]) Sensation Evaluation Gross Sensation Gross Sensation WNL PT-OP-J Posture/Palpation/Skin Start: 05/10/23 09:34 Freq: Status: Active Protocol: Document 05/10/23 09:35 AB (Rec: 05/10/23 11:26 AB [id number]) Palpation Assessment Location Two Palpation Location Right gluteal region Palpation Findings Tenderness One Palpation Location left lumbar paraspinals Palpation Findings Tenderness Palpation Details From T12 to PSIS PT-OP-K Range of Motion Start: 05/10/23 09:34 Freq: Status: Active Protocol: Document 05/10/23 09:35 AB (Rec: 05/10/23 11:26 AB [id number]) Lumbar Spine Range of Motion Lumbar Spine Active Testing Position Standing Extension 20 Rotation Left 30 Rotation Right 30 Comments flexion to distal shins ( reports tightness over left lumbar paraspinals) SB bilaterally to fibular head PT-OP-M Strength Start: 05/10/23 09:34 Freq: Status: Active Protocol: Document 05/10/23 09:35 AB (Rec: 05/10/23 11:26 AB [id number]) Hip Strength Hip Manual Muscle Testing Right Flexion (L2) 3+ Fair+ Extension (S1) 3+ Fair+ Abduction 4- Good- Adduction 4- Good- External Rotation 3+ Fair+ Internal Rotation 4- Good- Comments Pain with hip ER Left Flexion (L2) 4- Good- Extension (S1) 3+ Fair+ Abduction 4- Good- Adduction 4- Good- External Rotation 4- Good- Internal Rotation 4- Good- Knee Strength Knee Manual Muscle Testing Right Flexion (S2) 4+ Good+ Extension (L3) 4+ Good+ Left Flexion (S2) 4+ Good+ Extension (L3) 4+ Good+ Ankle/Foot Strength Ankle and Foot Manual Muscle Testing Right Dorsiflexion (L4) 5 Normal Plantarflexion (S1) 5 Normal Left Dorsiflexion (L4) 5 Normal Plantarflexion (S1) 5 Normal PT-OP-Q Treatments Start: 05/10/23 09:34 Freq: Status: Active Protocol: Document 05/12/23 16:13 AB (Rec: 05/12/23 17:06 AB [id number]) Therapeutic Exercises Supine Exercises 3 Supine Exercise Name Glute press/heel press + TrA brace Reps/Minutes 2x10 Comments 5 sec holds 2 Supine Exercise Name Marching + TrA brace Side bilateral Reps/Minutes 2x10 1 Supine Exercise Name LTRs Reps/Minutes 2 min Sidelying Exercises 1 Sidelying Exercise Name Clamshells Side bilateral Reps/Minutes 2x10 Standing Exercises 4 Standing Exercise Name Mini squats + TrA brace Reps/Minutes 2x10 Comments with UE support 3 Standing Exercise Name Hip CARs Side bilateral Reps/Minutes 2x5ea Comments UE support 2 Standing Exercise Name Crab walks Side bilateral Resistance teal TB Reps/Minutes x 1 lap Comments 20ft total 1 Standing Exercise Name Paloff press Side bilateral Resistance peach TB Reps/Minutes 2x15 ea PT-OP-T Assessment and Plan Start: 05/10/23 09:34 Freq: Status: Active Protocol: Document 05/12/23 16:13 AB (Rec: 05/12/23 17:06 [id number]) Physical Therapy Assessment Assessment Summary Assessment The pt demonstrated good recall of HEP, as she required minimal verbal cues to perform with good form, and her symptoms were not aggravated. Additional trunk and LE strength exercises were added to improve her symptoms and increase her tolerance to functional mobility. The pt denied an increase in her pain symptoms, though reported muscular fatigue with crab walks and hip CARs. She continues to benefit from skilled PT to improve her deficits and symptoms in order to return to her PLOF. Physical Therapy Plan Next Visit Focus/Plan Next Note Type Treatment Note Next Visit Plan Assess tolerance to today's session. Progress by adding trunk and LE strength and neuromuscular re-ed exercises as tolerated.
--- NOTE | 2023-05-19 17:27 | PT.OTN ---
Current Diagnoses Unilateral primary osteoarthritis, right hip (05/19/23) Lumbago with sciatica, right side (05/19/23) Physical Therapy Treatment Note PT-OP-A Visit Information Start: 05/10/23 09:34 Freq: Status: Active Protocol: Document 05/19/23 14:40 AB (Rec: 05/19/23 17:27 AB [id number]) Out-Patient Physical Therapy Visit Information Visit Information Visit Type Treatment Note Visit Start Time 14:37 Visit Stop Time 15:20 Total Visit Minutes 43 Visit Number 3 Number of MASTER TAX ADVISOR Visits 0 PT-OP-B Current Condition Start: 05/10/23 09:34 Freq: Status: Active Protocol: Document 05/10/23 09:35 AB (Rec: 05/10/23 11:26 AB [id number]) Current Condition History of Current Condition Onset Date 04/06/23 Current Complaints Occasional twinges in her low back, N/T occasionally down lateral RLE History of Current Condition Pt reports she was performing hip lifts as a part of her exercise routine, when she felt a twing in her right low back. For two days afterwards she continued with tightness and pain on that side which progressed to N/T over her right gluteal region and lateral thigh. She took tylenol and use ice with minimal improvement. However, since then her symptoms have significantly improved, and she now only experiences these twinges occasionally and randomly (1/10 at worst). She cannot think of specific movements that cause onset of symptoms. The pt also reports she is a candidate for R JOE, but she is being followed by ortho surgeon to determine when she will be needing JOE. Though she notes her R hip sometimes causes 7/10 pain when she is active. Prior Treatments and Tests None Treatment Goals Patient/Caregiver Goals To fully resolve her symptoms and build up her strength. Prior Functional Status Baseline Function- ADL's Independent Baseline Function- Mobility Independent Baseline Function- Other IND with all ADLs, IADLs, work and recreational activities. Current Functional Impairments (Reported) Functional Limitations- Recreation/ She is not performing her Hobbies exercise routine and is limiting heavier IADLs to avoid aggravating her symptoms . PT-OP-C Subjective Start: 05/10/23 09:34 Freq: Status: Active Protocol: Document 05/19/23 14:40 AB (Rec: 05/19/23 17:27 AB [id number]) OP-PT Subjective Patient Comments Patient Comments The pt reports that her back symptoms are improving, however her right hip symptoms are about the same. Patient Reported Progress Improving PT-OP-F Manual Assessment Start: 05/10/23 09:34 Freq: Status: Active Protocol: Document 05/10/23 09:35 AB (Rec: 05/10/23 11:26 AB [id number]) Manual Assessments Other Manual Assessments Other Manual Assessments Right Slump Test: negative PT-OP-H Neuro Start: 05/10/23 09:34 Freq: Status: Active Protocol: Document 05/10/23 09:35 AB (Rec: 05/10/23 11:26 AB [id number]) Sensation Evaluation Gross Sensation Gross Sensation WNL PT-OP-J Posture/Palpation/Skin Start: 05/10/23 09:34 Freq: Status: Active Protocol: Document 05/10/23 09:35 AB (Rec: 05/10/23 11:26 AB [id number]) Palpation Assessment Location Two Palpation Location Right gluteal region Palpation Findings Tenderness One Palpation Location left lumbar paraspinals Palpation Findings Tenderness Palpation Details From T12 to PSIS PT-OP-K Range of Motion Start: 05/10/23 09:34 Freq: Status: Active Protocol: Document 05/10/23 09:35 AB (Rec: 05/10/23 11:26 AB [id number]) Lumbar Spine Range of Motion Lumbar Spine Active Testing Position Standing Extension 20 Rotation Left 30 Rotation Right 30 Comments flexion to distal shins ( reports tightness over left lumbar paraspinals) SB bilaterally to fibular head PT-OP-M Strength Start: 05/10/23 09:34 Freq: Status: Active Protocol: Document 05/10/23 09:35 AB (Rec: 05/10/23 11:26 AB [id number]) Hip Strength Hip Manual Muscle Testing Right Flexion (L2) 3+ Fair+ Extension (S1) 3+ Fair+ Abduction 4- Good- Adduction 4- Good- External Rotation 3+ Fair+ Internal Rotation 4- Good- Comments Pain with hip ER Left Flexion (L2) 4- Good- Extension (S1) 3+ Fair+ Abduction 4- Good- Adduction 4- Good- External Rotation 4- Good- Internal Rotation 4- Good- Knee Strength Knee Manual Muscle Testing Right Flexion (S2) 4+ Good+ Extension (L3) 4+ Good+ Left Flexion (S2) 4+ Good+ Extension (L3) 4+ Good+ Ankle/Foot Strength Ankle and Foot Manual Muscle Testing Right Dorsiflexion (L4) 5 Normal Plantarflexion (S1) 5 Normal Left Dorsiflexion (L4) 5 Normal Plantarflexion (S1) 5 Normal PT-OP-Q Treatments Start: 05/10/23 09:34 Freq: Status: Active Protocol: Document 05/19/23 14:40 AB (Rec: 05/19/23 17:27 AB [id number]) Therapeutic Exercises Supine Exercises 2 Supine Exercise Name Marching+TrA brace+UE flexion Side bilateral Resistance 2# Equipment Used DBs Reps/Minutes 2x10 Comments 1 set without DBs, 2nd set with 2# DBs Sidelying Exercises 2 Sidelying Exercise Name reverse clamshells Side bilateral Reps/Minutes 2x15 1 Sidelying Exercise Name Clamshells Side bilateral Equipment Used level 2 TB Reps/Minutes 2x15 Sitting Exercises 1 Sitting Exercise Name Piriformis stretch Reps/Minutes 2x30 sec Standing Exercises 4 Standing Exercise Name Mini squats + TrA brace Reps/Minutes 2x10 Comments with UE support 2 Standing Exercise Name Crab walks Side bilateral Resistance teal TB Reps/Minutes x 1 lap Comments 20ft total 1 Standing Exercise Name Paloff press Side bilateral Resistance peach TB Reps/Minutes 2x15 ea Other Exercises 1 Other Exercise Name 1/2 kneeling hip ER/IR windshield wipers Side right Reps/Minutes 2x10 PT-OP-T Assessment and Plan Start: 05/10/23 09:34 Freq: Status: Active Protocol: Document 05/19/23 14:40 AB (Rec: 05/19/23 17:27 AB [id number]) Physical Therapy Assessment Goals Five Impairment Pain symptoms Short Term Goal (STG) Pt to report no TTP over left lateral paraspinals to show improving pain symptoms and soft tissue mobility. STG Duration 4 Tax Adjuster Goal (LTG) Pt to report no TTP over left lateral paraspinals or right gluteal region to show resolution of pain symptoms and improved soft tissue mobility. LTG Duration 6 Four Impairment Outcome Measures (subjective symptom report) Short Term Goal (STG) Pt's LEFS score to improve to 26/80 or better and Modified Oswestry score to improve to 8 /50 or better to show improving symptoms and QOL. STG Duration 4 Penitentiary Goal (LTG) Pt's LEFS score to improve to 40/80 or better and Modified Oswestry score to improve to 5 /50 or better to show improving symptoms and QOL. LTG Duration 6 Three Impairment Muscular weakness Short Term Goal (STG) Pt's gross LE MMT to improve to 4+/5 to show improving strength to perform ADLs, IADLs and other functional mobility. STG Duration 4 Penitentiary Goal (LTG) Pt's gross LE MMT to improve to 5/5 to show improved strength to perform ADLs, IADLs, other functional mobility and to participate in recreational activities. LTG Duration 6 Two Impairment Lumbar spine AROM deficits Short Term Goal (STG) Pt's lumbar spine rotation AROM to improve to 40 degrees to improve ability to perform ADLs and IADLs. STG Duration 4 Tax Adjuster Goal (LTG) Pt's lumbar spine rotation AROM to improve to 50 degrees to improve ability to perform ADLs, IADLs and recreational activities. LTG Duration 6 One Impairment Lumbar spine AROM deficits Short Term Goal (STG) Pt's lumbar spine flexion AROM to improve to ankles to be able to perform ADLs and IADLs with increased ease. STG Duration 4 Tax Adjuster Goal (LTG) Pt's lumbar AROM flexion to improve to ankles with minimal to no symptoms to be able to perform ADLs, IADLs and recreational activities. LTG Duration 6 Assessment Summary Assessment Due to reports of continued hip pain/discomfort, additional hip strength and mobility exercises were added today, including reverse clamshells, half kneeling ER/IR and piriformis stretch. The pt reported good tolerance with these additions, but demonstrated decreased ROM when performing on R side compared to L side. The pt would benefit from continued skilled PT to improve her symptoms and return to PLOF. Physical Therapy Plan Next Visit Focus/Plan Next Note Type Treatment Note Next Visit Plan Add core strengthening exercises such as suitcase carries and standing side crunches.
--- NOTE | 2023-05-21 14:18 | PT.OTN ---
Current Diagnoses Unilateral primary osteoarthritis, right hip (05/21/23) Lumbago with sciatica, right side (05/21/23) Physical Therapy Treatment Note PT-OP-A Visit Information Start: 05/10/23 09:34 Freq: Status: Active Protocol: Document 05/21/23 13:37 SP (Rec: 05/21/23 14:21 SP [id number]) Out-Patient Physical Therapy Visit Information Visit Information Visit Type Treatment Note Visit Note DESIGN ARCHITECT Ani observed tx with permission of pt, job shadow DESIGN ARCHITECT Bhumi. Visit Start Time 13:37 Visit Stop Time 14:18 Total Visit Minutes 41 Visit Number 4 Number of DESIGN ARCHITECT Visits 1 Evaluation Information Evaluation Date 05/10/23 PT-OP-B Current Condition Start: 05/10/23 09:34 Freq: Status: Active Protocol: Document 05/10/23 09:35 AB (Rec: 05/10/23 11:26 AB [id number]) Current Condition History of Current Condition Onset Date 04/06/23 Current Complaints Occasional twinges in her low back, N/T occasionally down lateral RLE History of Current Condition Pt reports she was performing hip lifts as a part of her exercise routine, when she felt a twing in her right low back. For two days afterwards she continued with tightness and pain on that side which progressed to N/T over her right gluteal region and lateral thigh. She took tylenol and use ice with minimal improvement. However, since then her symptoms have significantly improved, and she now only experiences these twinges occasionally and randomly (1/10 at worst). She cannot think of specific movements that cause onset of symptoms. The pt also reports she is a candidate for R JOE, but she is being followed by ortho surgeon to determine when she will be needing JOE. Though she notes her R hip sometimes causes 7/10 pain when she is active. Prior Treatments and Tests None Treatment Goals Patient/Caregiver Goals To fully resolve her symptoms and build up her strength. Prior Functional Status Baseline Function- ADL's Independent Baseline Function- Mobility Independent Baseline Function- Other IND with all ADLs, IADLs, work and recreational activities. Current Functional Impairments (Reported) Functional Limitations- Recreation/ She is not performing her Hobbies exercise routine and is limiting heavier IADLs to avoid aggravating her symptoms . PT-OP-C Subjective Start: 05/10/23 09:34 Freq: Status: Active Protocol: Document 05/21/23 13:37 SP (Rec: 05/21/23 14:21 SP [id number]) OP-PT Subjective Patient Comments Patient Comments Pt report having R lateral hip pain. Feels core exercises are helping. She is unsure PT-OP-F Manual Assessment Start: 05/10/23 09:34 Freq: Status: Active Protocol: Document 05/10/23 09:35 AB (Rec: 05/10/23 11:26 AB [id number]) Manual Assessments Other Manual Assessments Other Manual Assessments Right Slump Test: negative PT-OP-H Neuro Start: 05/10/23 09:34 Freq: Status: Active Protocol: Document 05/10/23 09:35 AB (Rec: 05/10/23 11:26 AB [id number]) Sensation Evaluation Gross Sensation Gross Sensation WNL PT-OP-J Posture/Palpation/Skin Start: 05/10/23 09:34 Freq: Status: Active Protocol: Document 05/10/23 09:35 AB (Rec: 05/10/23 11:26 AB [id number]) Palpation Assessment Location Two Palpation Location Right gluteal region Palpation Findings Tenderness One Palpation Location left lumbar paraspinals Palpation Findings Tenderness Palpation Details From T12 to PSIS PT-OP-K Range of Motion Start: 05/10/23 09:34 Freq: Status: Active Protocol: Document 05/10/23 09:35 AB (Rec: 05/10/23 11:26 AB [id number]) Lumbar Spine Range of Motion Lumbar Spine Active Testing Position Standing Extension 20 Rotation Left 30 Rotation Right 30 Comments flexion to distal shins ( reports tightness over left lumbar paraspinals) SB bilaterally to fibular head PT-OP-M Strength Start: 05/10/23 09:34 Freq: Status: Active Protocol: Document 05/10/23 09:35 AB (Rec: 05/10/23 11:26 AB [id number]) Hip Strength Hip Manual Muscle Testing Right Flexion (L2) 3+ Fair+ Extension (S1) 3+ Fair+ Abduction 4- Good- Adduction 4- Good- External Rotation 3+ Fair+ Internal Rotation 4- Good- Comments Pain with hip ER Left Flexion (L2) 4- Good- Extension (S1) 3+ Fair+ Abduction 4- Good- Adduction 4- Good- External Rotation 4- Good- Internal Rotation 4- Good- Knee Strength Knee Manual Muscle Testing Right Flexion (S2) 4+ Good+ Extension (L3) 4+ Good+ Left Flexion (S2) 4+ Good+ Extension (L3) 4+ Good+ Ankle/Foot Strength Ankle and Foot Manual Muscle Testing Right Dorsiflexion (L4) 5 Normal Plantarflexion (S1) 5 Normal Left Dorsiflexion (L4) 5 Normal Plantarflexion (S1) 5 Normal PT-OP-Q Treatments Start: 05/10/23 09:34 Freq: Status: Active Protocol: Document 05/21/23 13:37 SP (Rec: 05/21/23 14:21 SP [id number]) Therapeutic Exercises Supine Exercises ITB stretch Supine Exercise Name added to HEP w/ strap Side bilateral Equipment Used strap Reps/Minutes 20SH x2 Comments good feedback response to lateral hip/thigh stretch 3 Supine Exercise Name Glute press/heel press + TrA brace Reps/Minutes 2x10 Comments 5 sec holds- modified bridge 2 Supine Exercise Name Marching+TrA brace+UE flexion Side bilateral Resistance 2# DBs Equipment Used brief trial bug- challenge- hold for future Reps/Minutes 2x10 Comments improved slow pace proper form Sitting Exercises 1 Sitting Exercise Name Piriformis stretch: hip IR& ER Reps/Minutes 2x20 sec Comments good response Standing Exercises ITb stretch Standing Exercise Name added to HEP Side right Reps/Minutes 20 SH x1 Comments cued pelvis toward wall, anterior/post shift needed for stretch 4 Standing Exercise Name Mini squats + TrA brace Equipment Used rail BUE support Reps/Minutes 2x10 Comments supported eccentric flexion- less lateral L knee pain vs hover chair 1 Standing Exercise Name Paloff press- modified sitting - Side bilateral Resistance peach TB> orange TB Reps/Minutes 2x15 ea Comments better TA fac Other Exercises self STMs Other Exercise Name rolling pin, racquetball wall Comments ball best response to ITB/ lateral thigh 1 Other Exercise Name 1/2 kneeling hip ER/IR windshield wipers Side right Reps/Minutes 5 reps Comments at times hurts knees kneel. Manual Therapy Treatment Soft Tissue Mobilization R hip Body Location MWM w/ FM hip IR/ ER (PROM & AROM): piriformis, glut med Mobilization Type Sustained Pressure,Other Body Position prone over pillow Comments limited more L>R LE, reported hip ER less tension prone than 1/2 kneel PT-OP-T Assessment and Plan Start: 05/10/23 09:34 Freq: Status: Active Protocol: Document 05/21/23 13:37 SP (Rec: 05/21/23 14:21 SP [id number]) Physical Therapy Assessment Goals Five Impairment Pain symptoms Short Term Goal (STG) Pt to report no TTP over left lateral paraspinals to show improving pain symptoms and soft tissue mobility. STG Duration 4 Fpc Goal (LTG) Pt to report no TTP over left lateral paraspinals or right gluteal region to show resolution of pain symptoms and improved soft tissue mobility. LTG Duration 6 Four Impairment Outcome Measures (subjective symptom report) Short Term Goal (STG) Pt's LEFS score to improve to 26/80 or better and Modified Oswestry score to improve to 8 /50 or better to show improving symptoms and QOL. STG Duration 4 Fpc Goal (LTG) Pt's LEFS score to improve to 40/80 or better and Modified Oswestry score to improve to 5 /50 or better to show improving symptoms and QOL. LTG Duration 6 Three Impairment Muscular weakness Short Term Goal (STG) Pt's gross LE MMT to improve to 4+/5 to show improving strength to perform ADLs, IADLs and other functional mobility. STG Duration 4 Abstract Maker Goal (LTG) Pt's gross LE MMT to improve to 5/5 to show improved strength to perform ADLs, IADLs, other functional mobility and to participate in recreational activities. LTG Duration 6 Two Impairment Lumbar spine AROM deficits Short Term Goal (STG) Pt's lumbar spine rotation AROM to improve to 40 degrees to improve ability to perform ADLs and IADLs. STG Duration 4 Abstract Maker Goal (LTG) Pt's lumbar spine rotation AROM to improve to 50 degrees to improve ability to perform ADLs, IADLs and recreational activities. LTG Duration 6 One Impairment Lumbar spine AROM deficits Short Term Goal (STG) Pt's lumbar spine flexion AROM to improve to ankles to be able to perform ADLs and IADLs with increased ease. STG Duration 4 Abstract Maker Goal (LTG) Pt's lumbar AROM flexion to improve to ankles with minimal to no symptoms to be able to perform ADLs, IADLs and recreational activities. LTG Duration 6 Assessment Summary Assessment Pt reports supine ITB stretch helped with R lateral hip tension. Good core facilitation during core UE/LE ext, trialed bug but at this time challenge maintain TA so hold at this time. Modified paloff press in sitting, eliminated R lateral leg discomfort awareness ( experience in standing) with improved core fac as intended. Physical Therapy Plan Frequency and Duration Frequency of Treatment 2x/Week Duration of treatment (weeks) 6 Plan of Care Start Date 05/10/23 Plan of Care End Date 06/21/23 Therapeutic Interventions Therapeutic Interventions Balance Training,Gait Training ,Home Exercise Program,Joint Mobilizations,Manual Therapy, Neuromuscular Re-education, Patient/Caregiver Education, Self-Care/Home Management,Soft Tissue Mobilization,Taping, Therapeutic Activities, Therapeutic Exercises Modalities Cold Pack/Ice Massage,Electric Stimulation Next Visit Focus/Plan Next Note Type Treatment Note Next Visit Plan Recheck added stretch: ITB, piriformis, self STMs as needed. POC: Add core strengthening exercises such as suitcase carries and standing side crunches.
--- NOTE | 2023-05-24 09:47 | PT.OTN ---
Current Diagnoses Unilateral primary osteoarthritis, right hip (05/24/23) Lumbago with sciatica, right side (05/24/23) Physical Therapy Treatment Note PT-OP-A Visit Information Start: 05/10/23 09:34 Freq: Status: Active Protocol: Document 05/24/23 08:38 AB (Rec: 05/24/23 09:47 AB [id number]) Out-Patient Physical Therapy Visit Information Visit Information Visit Type Treatment Note Visit Start Time 08:31 Visit Stop Time 09:17 Total Visit Minutes 46 Visit Number 5 Number of FIRE DEPARTMENT BATTALION CHIEF Visits 1 PT-OP-B Current Condition Start: 05/10/23 09:34 Freq: Status: Active Protocol: Document 05/10/23 09:35 AB (Rec: 05/10/23 11:26 AB [id number]) Current Condition History of Current Condition Onset Date 04/06/23 Current Complaints Occasional twinges in her low back, N/T occasionally down lateral RLE History of Current Condition Pt reports she was performing hip lifts as a part of her exercise routine, when she felt a twing in her right low back. For two days afterwards she continued with tightness and pain on that side which progressed to N/T over her right gluteal region and lateral thigh. She took tylenol and use ice with minimal improvement. However, since then her symptoms have significantly improved, and she now only experiences these twinges occasionally and randomly (1/10 at worst). She cannot think of specific movements that cause onset of symptoms. The pt also reports she is a candidate for R JOE, but she is being followed by ortho surgeon to determine when she will be needing JOE. Though she notes her R hip sometimes causes 7/10 pain when she is active. Prior Treatments and Tests None Treatment Goals Patient/Caregiver Goals To fully resolve her symptoms and build up her strength. Prior Functional Status Baseline Function- ADL's Independent Baseline Function- Mobility Independent Baseline Function- Other IND with all ADLs, IADLs, work and recreational activities. Current Functional Impairments (Reported) Functional Limitations- Recreation/ She is not performing her Hobbies exercise routine and is limiting heavier IADLs to avoid aggravating her symptoms . PT-OP-C Subjective Start: 05/10/23 09:34 Freq: Status: Active Protocol: Document 05/24/23 08:38 AB (Rec: 05/24/23 09:47 AB [id number]) OP-PT Subjective Patient Comments Patient Comments The pt reports her right hip is doing a lot better. However , she reports she was trying to catch her dog when she felt like she pulled a muscle in her PT-OP-F Manual Assessment Start: 05/10/23 09:34 Freq: Status: Active Protocol: Document 05/10/23 09:35 AB (Rec: 05/10/23 11:26 AB [id number]) Manual Assessments Other Manual Assessments Other Manual Assessments Right Slump Test: negative PT-OP-H Neuro Start: 05/10/23 09:34 Freq: Status: Active Protocol: Document 05/10/23 09:35 AB (Rec: 05/10/23 11:26 AB [id number]) Sensation Evaluation Gross Sensation Gross Sensation WNL PT-OP-J Posture/Palpation/Skin Start: 05/10/23 09:34 Freq: Status: Active Protocol: Document 05/10/23 09:35 AB (Rec: 05/10/23 11:26 AB [id number]) Palpation Assessment Location Two Palpation Location Right gluteal region Palpation Findings Tenderness One Palpation Location left lumbar paraspinals Palpation Findings Tenderness Palpation Details From T12 to PSIS PT-OP-K Range of Motion Start: 05/10/23 09:34 Freq: Status: Active Protocol: Document 05/10/23 09:35 AB (Rec: 05/10/23 11:26 AB [id number]) Lumbar Spine Range of Motion Lumbar Spine Active Testing Position Standing Extension 20 Rotation Left 30 Rotation Right 30 Comments flexion to distal shins ( reports tightness over left lumbar paraspinals) SB bilaterally to fibular head PT-OP-M Strength Start: 05/10/23 09:34 Freq: Status: Active Protocol: Document 05/10/23 09:35 AB (Rec: 05/10/23 11:26 AB [id number]) Hip Strength Hip Manual Muscle Testing Right Flexion (L2) 3+ Fair+ Extension (S1) 3+ Fair+ Abduction 4- Good- Adduction 4- Good- External Rotation 3+ Fair+ Internal Rotation 4- Good- Comments Pain with hip ER Left Flexion (L2) 4- Good- Extension (S1) 3+ Fair+ Abduction 4- Good- Adduction 4- Good- External Rotation 4- Good- Internal Rotation 4- Good- Knee Strength Knee Manual Muscle Testing Right Flexion (S2) 4+ Good+ Extension (L3) 4+ Good+ Left Flexion (S2) 4+ Good+ Extension (L3) 4+ Good+ Ankle/Foot Strength Ankle and Foot Manual Muscle Testing Right Dorsiflexion (L4) 5 Normal Plantarflexion (S1) 5 Normal Left Dorsiflexion (L4) 5 Normal Plantarflexion (S1) 5 Normal PT-OP-Q Treatments Start: 05/10/23 09:34 Freq: Status: Active Protocol: Document 05/24/23 08:38 AB (Rec: 05/24/23 09:47 AB [id number]) Therapeutic Exercises Supine Exercises 3 Supine Exercise Name Glute press/heel press Side left Reps/Minutes 1x10 Comments 3 sec holds- staggered stance to bias left HS Sitting Exercises 1 Sitting Exercise Name Piriformis stretch Reps/Minutes 2x30 sec Standing Exercises 3 Standing Exercise Name Standing hip ext at 45 deg ABD Side bilateral Reps/Minutes 2x10 ea Comments BUE support 2 Standing Exercise Name Crab walks Side bilateral Resistance level 2 teal TB Reps/Minutes x 1 lap Comments 20ft total; around ankles 1 Standing Exercise Name Paloff press Side bilateral Resistance peach TB Reps/Minutes 2x15 ea Manual Therapy Treatment Joint Mobilizations 1 Joint Hip Direction lateral Grade II Body Position Hooklying Reps/Duration 12 min PT-OP-T Assessment and Plan Start: 05/10/23 09:34 Freq: Status: Active Protocol: Document 05/24/23 08:38 AB (Rec: 05/24/23 09:47 AB [id number]) Physical Therapy Assessment Goals Five Impairment Pain symptoms Short Term Goal (STG) Pt to report no TTP over left lateral paraspinals to show improving pain symptoms and soft tissue mobility. STG Duration 4 Usp Goal (LTG) Pt to report no TTP over left lateral paraspinals or right gluteal region to show resolution of pain symptoms and improved soft tissue mobility. LTG Duration 6 Four Impairment Outcome Measures (subjective symptom report) Short Term Goal (STG) Pt's LEFS score to improve to 26/80 or better and Modified Oswestry score to improve to 8 /50 or better to show improving symptoms and QOL. STG Duration 4 Usp Goal (LTG) Pt's LEFS score to improve to 40/80 or better and Modified Oswestry score to improve to 5 /50 or better to show improving symptoms and QOL. LTG Duration 6 Three Impairment Muscular weakness Short Term Goal (STG) Pt's gross LE MMT to improve to 4+/5 to show improving strength to perform ADLs, IADLs and other functional mobility. STG Duration 4 Usp Goal (LTG) Pt's gross LE MMT to improve to 5/5 to show improved strength to perform ADLs, IADLs, other functional mobility and to participate in recreational activities. LTG Duration 6 Two Impairment Lumbar spine AROM deficits Short Term Goal (STG) Pt's lumbar spine rotation AROM to improve to 40 degrees to improve ability to perform ADLs and IADLs. STG Duration 4 Usp Goal (LTG) Pt's lumbar spine rotation AROM to improve to 50 degrees to improve ability to perform ADLs, IADLs and recreational activities. LTG Duration 6 One Impairment Lumbar spine AROM deficits Short Term Goal (STG) Pt's lumbar spine flexion AROM to improve to ankles to be able to perform ADLs and IADLs with increased ease. STG Duration 4 Usp Goal (LTG) Pt's lumbar AROM flexion to improve to ankles with minimal to no symptoms to be able to perform ADLs, IADLs and recreational activities. LTG Duration 6 Assessment Summary Assessment The pt continues with decreased tolerance to standing exercises, as she reports increased ache and fatigue in her hip muscles with these exercises (no pain reported). Manual therapy consisting of hip lateral joint mobilization was added to improve symptoms, with mild relief reported by the pt. Next visit, the pt would benefit from continued skilled PT to improve her symptoms and level of function. Continued progressing as tolerated to make gains towards her goals. Physical Therapy Plan Frequency and Duration Frequency of Treatment 2x/Week Duration of treatment (weeks) 6 Plan of Care Start Date 05/10/23 Plan of Care End Date 06/21/23 Therapeutic Interventions Therapeutic Interventions Balance Training,Gait Training ,Home Exercise Program,Joint Mobilizations,Manual Therapy, Neuromuscular Re-education, Patient/Caregiver Education, Self-Care/Home Management,Soft Tissue Mobilization,Taping, Therapeutic Activities, Therapeutic Exercises Modalities Cold Pack/Ice Massage,Electric Stimulation Next Visit Focus/Plan Next Note Type Treatment Note Next Visit Plan Assess left HS symptoms. Continue progressing hip and core strengthening exercises as tolerated.
--- NOTE | 2023-05-26 10:56 | PT.OPPN ---
Current Diagnoses Unilateral primary osteoarthritis, right hip (05/26/23) Lumbago with sciatica, right side (05/26/23) Physical Therapy Progress Note PT-OP-A Visit Information Start: 05/10/23 09:34 Freq: Status: Active Protocol: Document 05/26/23 08:33 AB (Rec: 05/26/23 10:52 AB [id number]) Out-Patient Physical Therapy Visit Information Visit Information Visit Type Progress Note Visit Start Time 08:30 Visit Stop Time 09:15 Visit Number 6 Number of CHECKER AND PACKER Visits 1 Evaluation Information Evaluation Date 05/10/23 PT-OP-B Current Condition Start: 05/10/23 09:34 Freq: Status: Active Protocol: Document 05/26/23 08:33 AB (Rec: 05/26/23 10:52 AB [id number]) Current Condition History of Current Condition Onset Date 04/06/23 Current Complaints Occasional twinges in her low back, N/T occasionally down lateral RLE History of Current Condition Pt reports she was performing hip lifts as a part of her exercise routine, when she felt a twing in her right low back. For two days afterwards she continued with tightness and pain on that side which progressed to N/T over her right gluteal region and lateral thigh. She took tylenol and use ice with minimal improvement. However, since then her symptoms have significantly improved, and she now only experiences these twinges occasionally and randomly (1/10 at worst). She cannot think of specific movements that cause onset of symptoms. The pt also reports she is a candidate for R JOE, but she is being followed by ortho surgeon to determine when she will be needing JOE. Though she notes her R hip sometimes causes 7/10 pain when she is active. Prior Treatments and Tests None Treatment Goals Patient/Caregiver Goals To fully resolve her symptoms and build up her strength. PT-OP-C Subjective Start: 05/10/23 09:34 Freq: Status: Active Protocol: Document 05/26/23 08:33 AB (Rec: 05/26/23 10:52 AB [id number]) OP-PT Subjective Patient Comments Patient Comments The pt reports that her hamstring is feeling better than on Wednesday. She also states that her right hip pain and low back pain symptoms are improving compared to her initial eval, but she continues with hip pain when she stands or walks for prolonged periods. Patient Reported Progress Improving Patient Questionnaires Lower Extremity Functional Scale LEFS Score 43/80 LEFS Impairment 40 to 59% Impaired (Score 32- 47) Oswestry Low Back Index Oswestry Score 12/50 Oswestry Impairment 20 to 39% Impaired (Score 20- 39) PT-OP-F Manual Assessment Start: 05/10/23 09:34 Freq: Status: Active Protocol: Document 05/10/23 09:35 AB (Rec: 05/10/23 11:26 AB [id number]) Manual Assessments Other Manual Assessments Other Manual Assessments Bilateral Slump Test: negative PT-OP-H Neuro Start: 05/10/23 09:34 Freq: Status: Active Protocol: Document 05/10/23 09:35 AB (Rec: 05/10/23 11:26 AB [id number]) Sensation Evaluation Gross Sensation Gross Sensation WNL PT-OP-J Posture/Palpation/Skin Start: 05/10/23 09:34 Freq: Status: Active Protocol: Document 05/26/23 08:33 AB (Rec: 05/26/23 10:52 AB [id number]) Palpation Assessment Location Two Palpation Location Right gluteal region Palpation Findings None/Normal Palpation Details Denies TTP One Palpation Location left lumbar paraspinals Palpation Findings None/Normal Palpation Details Denies TTP PT-OP-K Range of Motion Start: 05/10/23 09:34 Freq: Status: Active Protocol: Document 05/26/23 08:33 AB (Rec: 05/26/23 10:52 AB [id number]) Lumbar Spine Range of Motion Lumbar Spine Active Testing Position Standing Extension 20 Rotation Left 45 Rotation Right 45 Comments flexion to distal ankles ( reports tightness over left hamstring) SB bilaterally to fibular head PT-OP-M Strength Start: 05/10/23 09:34 Freq: Status: Active Protocol: Document 05/26/23 08:33 AB (Rec: 05/26/23 10:52 AB [id number]) Hip Strength Hip Manual Muscle Testing Right Flexion (L2) 4 Good Extension (S1) 4- Good- Abduction 4 Good Adduction 4 Good External Rotation 4 Good Internal Rotation 4 Good Comments Denies pain Left Flexion (L2) 4 Good Extension (S1) 3+ Fair+ Abduction 4 Good Adduction 4 Good External Rotation 4 Good Internal Rotation 4 Good Comments Denies pain Knee Strength Knee Manual Muscle Testing Right Flexion (S2) 5 Normal Extension (L3) 5 Normal Left Flexion (S2) 4+ Good+ Extension (L3) 5 Normal Ankle/Foot Strength Ankle and Foot Manual Muscle Testing Right Dorsiflexion (L4) 5 Normal Plantarflexion (S1) 5 Normal Left Dorsiflexion (L4) 5 Normal Plantarflexion (S1) 5 Normal PT-OP-T Assessment and Plan Start: 05/10/23 09:34 Freq: Status: Active Protocol: Document 05/26/23 08:33 AB (Rec: 05/26/23 10:52 AB [id number]) Physical Therapy Assessment Rehab Potential Rehabilitation Potential Good Evaluation Complexity Number of Personal Factors/Comorbidities 1-2 Number of Body Systems Impaired 1-2 Clinical Presentation at Evaluation Stable Impairments Impairments Pain,ROM,Strength Goals Five Impairment Pain symptoms Short Term Goal (STG) Pt to report no TTP over left lateral paraspinals to show improving pain symptoms and soft tissue mobility. STG Duration 4 Senior Lead Project Manager Goal (LTG) Pt to report no TTP over left lateral paraspinals or right gluteal region to show resolution of pain symptoms and improved soft tissue mobility. LTG Duration 6 Four Impairment Outcome Measures (subjective symptom report) Short Term Goal (STG) Pt's LEFS score to improve to 26/80 or better and Modified Oswestry score to improve to 8 /50 or better to show improving symptoms and QOL. STG Duration 4 Senior Lead Project Manager Goal (LTG) Pt's LEFS score to improve to 40/80 or better and Modified Oswestry score to improve to 5 /50 or better to show improving symptoms and QOL. LTG Duration 6 Three Impairment Muscular weakness Short Term Goal (STG) Pt's gross LE MMT to improve to 4+/5 to show improving strength to perform ADLs, IADLs and other functional mobility. STG Duration 4 Senior Lead Project Manager Goal (LTG) Pt's gross LE MMT to improve to 5/5 to show improved strength to perform ADLs, IADLs, other functional mobility and to participate in recreational activities. LTG Duration 6 Two Impairment Lumbar spine AROM deficits Short Term Goal (STG) Pt's lumbar spine rotation AROM to improve to 40 degrees to improve ability to perform ADLs and IADLs. STG Duration 4 Retirement Goal (LTG) Pt's lumbar spine rotation AROM to improve to 50 degrees to improve ability to perform ADLs, IADLs and recreational activities. LTG Duration 6 One Impairment Lumbar spine AROM deficits Short Term Goal (STG) Pt's lumbar spine flexion AROM to improve to ankles to be able to perform ADLs and IADLs with increased ease. STG Duration 4 Retirement Goal (LTG) Pt's lumbar AROM flexion to improve to ankles with minimal to no symptoms to be able to perform ADLs, IADLs and recreational activities. LTG Duration 6 Progress Towards Goals Progress Towards Goals Progressing Toward Goals Assessment Summary Assessment Mari has completed 6 visits of skilled PT to improve her LBP and right hip pain. The pt reports improvement in her symptoms, which is confirmed with improved patient questionnaire scores. She also demonstrates improved LE strength and lumbar spine mobility, and no tenderness to palpation in previously reported areas, as detailed above. However, she continues with muscular weakness and limitations in her tolerance to activity, specifically activities that require her to stand for prolonged periods. This is limiting her ability to perform certain IADLs and recreational activities. Based on the pt's progress but remaining deficits, the pt would benefit from continued skilled PT as per her established POC to improve these and return to her PLOF without limitations. Physical Therapy Plan Frequency and Duration Frequency of Treatment 2x/Week Duration of treatment (weeks) 6 Plan of Care Start Date 05/10/23 Plan of Care End Date 06/21/23 Next Visit Focus/Plan Next Note Type Treatment Note Next Visit Plan Continue monitoring left HS; progress as tolerated.
--- NOTE | 2023-05-27 12:56 | PT.OPPOC ---
Physical, Occupational & Speech Therapy At [facility] Current Diagnoses Unilateral primary osteoarthritis, right hip (05/26/23) Lumbago with sciatica, right side (05/26/23) Visit Care Team Role Provider Type MATTHEW [place] Attending Provider Advanced Government Affairs Manager Family Provider Primary Care Provider Referring Provider Specialty: Family Practice Address: [address] [place] [address], [facility] [place], [facility] Email: Plan Of Care PT-OP-T Assessment and Plan Start: 05/10/23 09:34 Freq: Status: Active Protocol: Document 05/26/23 08:33 AB (Rec: 05/26/23 10:52 AB [id number]) Physical Therapy Assessment Rehab Potential Rehabilitation Potential Good Evaluation Complexity Number of Personal Factors/Comorbidities 1-2 Number of Body Systems Impaired 1-2 Clinical Presentation at Evaluation Stable Impairments Impairments Pain,ROM,Strength Goals Five Impairment Pain symptoms Short Term Goal (STG) Pt to report no TTP over left lateral paraspinals to show improving pain symptoms and soft tissue mobility. STG Duration 4 Longterm Goal (LTG) Pt to report no TTP over left lateral paraspinals or right gluteal region to show resolution of pain symptoms and improved soft tissue mobility. LTG Duration 6 Four Impairment Outcome Measures (subjective symptom report) Short Term Goal (STG) Pt's LEFS score to improve to 26/80 or better and Modified Oswestry score to improve to 8 /50 or better to show improving symptoms and QOL. STG Duration 4 Structural Design Engineer Goal (LTG) Pt's LEFS score to improve to 40/80 or better and Modified Oswestry score to improve to 5 /50 or better to show improving symptoms and QOL. LTG Duration 6 Three Impairment Muscular weakness Short Term Goal (STG) Pt's gross LE MMT to improve to 4+/5 to show improving strength to perform ADLs, IADLs and other functional mobility. STG Duration 4 Longterm Goal (LTG) Pt's gross LE MMT to improve to 5/5 to show improved strength to perform ADLs, IADLs, other functional mobility and to participate in recreational activities. LTG Duration 6 Two Impairment Lumbar spine AROM deficits Short Term Goal (STG) Pt's lumbar spine rotation AROM to improve to 40 degrees to improve ability to perform ADLs and IADLs. STG Duration 4 Longterm Goal (LTG) Pt's lumbar spine rotation AROM to improve to 50 degrees to improve ability to perform ADLs, IADLs and recreational activities. LTG Duration 6 One Impairment Lumbar spine AROM deficits Short Term Goal (STG) Pt's lumbar spine flexion AROM to improve to ankles to be able to perform ADLs and IADLs with increased ease. STG Duration 4 Longterm Goal (LTG) Pt's lumbar AROM flexion to improve to ankles with minimal to no symptoms to be able to perform ADLs, IADLs and recreational activities. LTG Duration 6 Progress Towards Goals Progress Towards Goals Progressing Toward Goals Assessment Summary Assessment Mari has completed 6 visits of skilled PT to improve her LBP and right hip pain. The pt reports improvement in her symptoms, which is confirmed with improved patient questionnaire scores. She also demonstrates improved LE strength and lumbar spine mobility, and no tenderness to palpation in previously reported areas, as detailed above. However, she continues with muscular weakness and limitations in her tolerance to activity, specifically activities that require her to stand for prolonged periods. This is limiting her ability to perform certain IADLs and recreational activities. Based on the pt's progress but remaining deficits, the pt would benefit from continued skilled PT as per her established POC to improve these and return to her PLOF without limitations. Physical Therapy Plan Frequency and Duration Frequency of Treatment 2x/Week Duration of treatment (weeks) 6 Plan of Care Start Date 05/10/23 Plan of Care End Date 06/21/23 Next Visit Focus/Plan Next Note Type Treatment Note Next Visit Plan Continue monitoring left HS; progress as tolerated. Plan of Care Dates Plan of Care Start Date 05/10/23 Plan of Care End Date 06/21/23 Electronically Signed by: Shaquille Sahu, PT 05/27/23 [id number] If you are in agreement with this Plan of Care, please return a signed and dated copy. I have reviewed this Plan of Care and certify that the skilled therapy services above are required to meet the patient?s needs. Physician Signature Date Printed Name and Credentials Clinical Instructor Signature Printed Name and Credentials
--- NOTE | 2023-06-01 10:10 | PT.OTN ---
Current Diagnoses Unilateral primary osteoarthritis, right hip (06/01/23) Lumbago with sciatica, right side (06/01/23) Physical Therapy Treatment Note PT-OP-A Visit Information Start: 05/10/23 09:34 Freq: Status: Active Protocol: Document 06/01/23 08:39 AB (Rec: 06/01/23 10:09 AB [id number]) Out-Patient Physical Therapy Visit Information Visit Information Visit Type Treatment Note Visit Start Time 08:32 Visit Stop Time 09:15 Total Visit Minutes 43 Visit Number 7 Number of STABLE HELPER Visits 1 Evaluation Information Evaluation Date 05/10/23 PT-OP-B Current Condition Start: 05/10/23 09:34 Freq: Status: Active Protocol: Document 05/26/23 08:33 AB (Rec: 05/26/23 10:52 AB [id number]) Current Condition History of Current Condition Onset Date 04/06/23 Current Complaints Occasional twinges in her low back, N/T occasionally down lateral RLE History of Current Condition Pt reports she was performing hip lifts as a part of her exercise routine, when she felt a twing in her right low back. For two days afterwards she continued with tightness and pain on that side which progressed to N/T over her right gluteal region and lateral thigh. She took tylenol and use ice with minimal improvement. However, since then her symptoms have significantly improved, and she now only experiences these twinges occasionally and randomly (1/10 at worst). She cannot think of specific movements that cause onset of symptoms. The pt also reports she is a candidate for R JOE, but she is being followed by ortho surgeon to determine when she will be needing JOE. Though she notes her R hip sometimes causes 7/10 pain when she is active. Prior Treatments and Tests None Treatment Goals Patient/Caregiver Goals To fully resolve her symptoms and build up her strength. PT-OP-C Subjective Start: 05/10/23 09:34 Freq: Status: Active Protocol: Document 06/01/23 08:39 AB (Rec: 06/01/23 10:09 AB [id number]) OP-PT Subjective Patient Comments Patient Comments The pt reports feeling like she turned a corner this weekend. She states she was able to stand and cook for 2 hours without symptoms. She then took a break but returned to her activities, and after another while longer of standing started to have very mild symptoms, but these resolved with her exercises. Patient Reported Progress Improving PT-OP-F Manual Assessment Start: 05/10/23 09:34 Freq: Status: Active Protocol: Document 05/10/23 09:35 AB (Rec: 05/10/23 11:26 AB [id number]) Manual Assessments Other Manual Assessments Other Manual Assessments Bilateral Slump Test: negative PT-OP-H Neuro Start: 05/10/23 09:34 Freq: Status: Active Protocol: Document 05/10/23 09:35 AB (Rec: 05/10/23 11:26 AB [id number]) Sensation Evaluation Gross Sensation Gross Sensation WNL PT-OP-J Posture/Palpation/Skin Start: 05/10/23 09:34 Freq: Status: Active Protocol: Document 05/26/23 08:33 AB (Rec: 05/26/23 10:52 AB [id number]) Palpation Assessment Location Two Palpation Location Right gluteal region Palpation Findings None/Normal Palpation Details Denies TTP One Palpation Location left lumbar paraspinals Palpation Findings None/Normal Palpation Details Denies TTP PT-OP-K Range of Motion Start: 05/10/23 09:34 Freq: Status: Active Protocol: Document 05/26/23 08:33 AB (Rec: 05/26/23 10:52 AB [id number]) Lumbar Spine Range of Motion Lumbar Spine Active Testing Position Standing Extension 20 Rotation Left 45 Rotation Right 45 Comments flexion to distal ankles ( reports tightness over left hamstring) SB bilaterally to fibular head PT-OP-M Strength Start: 05/10/23 09:34 Freq: Status: Active Protocol: Document 05/26/23 08:33 AB (Rec: 05/26/23 10:52 AB [id number]) Hip Strength Hip Manual Muscle Testing Right Flexion (L2) 4 Good Extension (S1) 4- Good- Abduction 4 Good Adduction 4 Good External Rotation 4 Good Internal Rotation 4 Good Comments Denies pain Left Flexion (L2) 4 Good Extension (S1) 3+ Fair+ Abduction 4 Good Adduction 4 Good External Rotation 4 Good Internal Rotation 4 Good Comments Denies pain Knee Strength Knee Manual Muscle Testing Right Flexion (S2) 5 Normal Extension (L3) 5 Normal Left Flexion (S2) 4+ Good+ Extension (L3) 5 Normal Ankle/Foot Strength Ankle and Foot Manual Muscle Testing Right Dorsiflexion (L4) 5 Normal Plantarflexion (S1) 5 Normal Left Dorsiflexion (L4) 5 Normal Plantarflexion (S1) 5 Normal PT-OP-Q Treatments Start: 05/10/23 09:34 Freq: Status: Active Protocol: Document 06/01/23 08:39 AB (Rec: 06/01/23 10:09 AB [id number]) Cardio Equipment Recumbent Bicycle Duration (Minutes) 5 Therapeutic Exercises Supine Exercises 3 Supine Exercise Name mini glute bridge Reps/Minutes 3x10 Comments even stance 2 Supine Exercise Name Marching+TrA brace Side bilateral Reps/Minutes 2x10 Comments 1st set: starting with feet on plinth; 2nd: starting with LEs in table top Sitting Exercises 3 way lumbar flexion stretch Equipment Used green latvian ball Reps/Minutes 2 min Standing Exercises STS Equipment Used standard chair Reps/Minutes 2x10 SLS Side bilateral Reps/Minutes 2x30 sec 4 Standing Exercise Name Mini squats + TrA brace Equipment Used rail BUE support Reps/Minutes 2x10 3 Standing Exercise Name Standing hip ext at 45 deg ABD Side bilateral Reps/Minutes 2x10 ea Comments BUE support 2 Standing Exercise Name Crab walks Side bilateral Resistance level 2 teal TB Reps/Minutes x 1 lap Comments 20ft total; around ankles 1 Standing Exercise Name Paloff press + rotation Side bilateral Resistance peach TB Reps/Minutes 2x10 ea Other Exercises Suitcase carry Side bilateral Resistance 7#, 10# Equipment Used DBs Reps/Minutes x 2 laps ea Comments 1st lap with 7#, 2nd lap with 10# Self hip lateral traction Side right Reps/Minutes [id number] Comments right leg on step, using hands to push knee medially PT-OP-T Assessment and Plan Start: 05/10/23 09:34 Freq: Status: Active Protocol: Document 06/01/23 08:39 AB (Rec: 06/01/23 10:09 AB [id number]) Physical Therapy Assessment Rehab Potential Rehabilitation Potential Good Evaluation Complexity Number of Personal Factors/Comorbidities 1-2 Number of Body Systems Impaired 1-2 Clinical Presentation at Evaluation Stable Impairments Impairments Pain,ROM,Strength Goals Five Impairment Pain symptoms Short Term Goal (STG) Pt to report no TTP over left lateral paraspinals to show improving pain symptoms and soft tissue mobility. STG Duration 4 Fpc Goal (LTG) Pt to report no TTP over left lateral paraspinals or right gluteal region to show resolution of pain symptoms and improved soft tissue mobility. LTG Duration 6 Four Impairment Outcome Measures (subjective symptom report) Short Term Goal (STG) Pt's LEFS score to improve to 26/80 or better and Modified Oswestry score to improve to 8 /50 or better to show improving symptoms and QOL. STG Duration 4 Devulcanizer Tender Goal (LTG) Pt's LEFS score to improve to 40/80 or better and Modified Oswestry score to improve to 5 /50 or better to show improving symptoms and QOL. LTG Duration 6 Three Impairment Muscular weakness Short Term Goal (STG) Pt's gross LE MMT to improve to 4+/5 to show improving strength to perform ADLs, IADLs and other functional mobility. STG Duration 4 Fpc Goal (LTG) Pt's gross LE MMT to improve to 5/5 to show improved strength to perform ADLs, IADLs, other functional mobility and to participate in recreational activities. LTG Duration 6 Two Impairment Lumbar spine AROM deficits Short Term Goal (STG) Pt's lumbar spine rotation AROM to improve to 40 degrees to improve ability to perform ADLs and IADLs. STG Duration 4 Fpc Goal (LTG) Pt's lumbar spine rotation AROM to improve to 50 degrees to improve ability to perform ADLs, IADLs and recreational activities. LTG Duration 6 One Impairment Lumbar spine AROM deficits Short Term Goal (STG) Pt's lumbar spine flexion AROM to improve to ankles to be able to perform ADLs and IADLs with increased ease. STG Duration 4 Fpc Goal (LTG) Pt's lumbar AROM flexion to improve to ankles with minimal to no symptoms to be able to perform ADLs, IADLs and recreational activities. LTG Duration 6 Assessment Summary Assessment Based on her improving symptoms, the pt was progressed today by adding core/LE strengthening exercises, as detailed above. She requires minimal cueing to perform exercises with good form or to engage core to stabilize. Supine marching was reintroduced and progressed to be performed with LEs in table top position, with the pt reporting that this is a good challenge, and demonstrating good ability to maintain lumbar spine neutral. The pt would benefit from continued skilled PT to improve her symptoms to allow her to return to her PLOF. Physical Therapy Plan Frequency and Duration Frequency of Treatment 2x/Week Duration of treatment (weeks) 6 Plan of Care Start Date 05/10/23 Plan of Care End Date 06/21/23 Therapeutic Interventions Therapeutic Interventions Balance Training,Gait Training ,Home Exercise Program,Joint Mobilizations,Manual Therapy, Neuromuscular Re-education, Patient/Caregiver Education, Self-Care/Home Management,Soft Tissue Mobilization,Taping, Therapeutic Activities, Therapeutic Exercises Modalities Cold Pack/Ice Massage,Electric Stimulation Next Visit Focus/Plan Next Note Type Treatment Note Next Visit Plan Continue monitoring left HS; progress as tolerated.
--- NOTE | 2023-06-09 09:52 | PT.OTN ---
Current Diagnoses Unilateral primary osteoarthritis, right hip (06/09/23) Lumbago with sciatica, right side (06/09/23) Physical Therapy Treatment Note PT-OP-A Visit Information Start: 05/10/23 09:34 Freq: Status: Active Protocol: Document 06/09/23 08:28 AB (Rec: 06/09/23 09:52 AB [id number]) Out-Patient Physical Therapy Visit Information Visit Information Visit Type Treatment Note Visit Start Time 08:30 Visit Stop Time 09:18 Total Visit Minutes 48 Visit Number 8 Number of OUTBOUND SALES REPRESENTATIVE Visits 1 Evaluation Information Evaluation Date 05/10/23 Precautions Precautions HTN (controlled by medications ) PT-OP-B Current Condition Start: 05/10/23 09:34 Freq: Status: Active Protocol: Document 05/26/23 08:33 AB (Rec: 05/26/23 10:52 AB [id number]) Current Condition History of Current Condition Onset Date 04/06/23 Current Complaints Occasional twinges in her low back, N/T occasionally down lateral RLE History of Current Condition Pt reports she was performing hip lifts as a part of her exercise routine, when she felt a twing in her right low back. For two days afterwards she continued with tightness and pain on that side which progressed to N/T over her right gluteal region and lateral thigh. She took tylenol and use ice with minimal improvement. However, since then her symptoms have significantly improved, and she now only experiences these twinges occasionally and randomly (1/10 at worst). She cannot think of specific movements that cause onset of symptoms. The pt also reports she is a candidate for R JOE, but she is being followed by ortho surgeon to determine when she will be needing JOE. Though she notes her R hip sometimes causes 7/10 pain when she is active. Prior Treatments and Tests None Treatment Goals Patient/Caregiver Goals To fully resolve her symptoms and build up her strength. PT-OP-C Subjective Start: 05/10/23 09:34 Freq: Status: Active Protocol: Document 06/09/23 08:28 AB (Rec: 06/09/23 09:52 AB [id number]) OP-PT Subjective Patient Comments Patient Comments The pt reports her LBP and hip pain are much better, and that she only has mild hip pain when standing for prolonged periods, which improves after thinking to engage muscles. She reports her hamstring is also much better. PT-OP-F Manual Assessment Start: 05/10/23 09:34 Freq: Status: Active Protocol: Document 05/10/23 09:35 AB (Rec: 05/10/23 11:26 AB [id number]) Manual Assessments Other Manual Assessments Other Manual Assessments Bilateral Slump Test: negative PT-OP-H Neuro Start: 05/10/23 09:34 Freq: Status: Active Protocol: Document 05/10/23 09:35 AB (Rec: 05/10/23 11:26 AB [id number]) Sensation Evaluation Gross Sensation Gross Sensation WNL PT-OP-J Posture/Palpation/Skin Start: 05/10/23 09:34 Freq: Status: Active Protocol: Document 05/26/23 08:33 AB (Rec: 05/26/23 10:52 AB [id number]) Palpation Assessment Location Two Palpation Location Right gluteal region Palpation Findings None/Normal Palpation Details Denies TTP One Palpation Location left lumbar paraspinals Palpation Findings None/Normal Palpation Details Denies TTP PT-OP-K Range of Motion Start: 05/10/23 09:34 Freq: Status: Active Protocol: Document 05/26/23 08:33 AB (Rec: 05/26/23 10:52 AB [id number]) Lumbar Spine Range of Motion Lumbar Spine Active Testing Position Standing Extension 20 Rotation Left 45 Rotation Right 45 Comments flexion to distal ankles ( reports tightness over left hamstring) SB bilaterally to fibular head PT-OP-M Strength Start: 05/10/23 09:34 Freq: Status: Active Protocol: Document 05/26/23 08:33 AB (Rec: 05/26/23 10:52 AB [id number]) Hip Strength Hip Manual Muscle Testing Right Flexion (L2) 4 Good Extension (S1) 4- Good- Abduction 4 Good Adduction 4 Good External Rotation 4 Good Internal Rotation 4 Good Comments Denies pain Left Flexion (L2) 4 Good Extension (S1) 3+ Fair+ Abduction 4 Good Adduction 4 Good External Rotation 4 Good Internal Rotation 4 Good Comments Denies pain Knee Strength Knee Manual Muscle Testing Right Flexion (S2) 5 Normal Extension (L3) 5 Normal Left Flexion (S2) 4+ Good+ Extension (L3) 5 Normal Ankle/Foot Strength Ankle and Foot Manual Muscle Testing Right Dorsiflexion (L4) 5 Normal Plantarflexion (S1) 5 Normal Left Dorsiflexion (L4) 5 Normal Plantarflexion (S1) 5 Normal PT-OP-Q Treatments Start: 05/10/23 09:34 Freq: Status: Active Protocol: Document 06/09/23 08:28 AB (Rec: 06/09/23 09:52 AB [id number]) Cardio Equipment Recumbent Bicycle Duration (Minutes) 5 Therapeutic Exercises Standing Exercises Fire hydrants Standing Exercise Name Standing fire hydrants Side bilateral Reps/Minutes 2x10ea Stool hip IR and IR Side bilateral Resistance 2x10 Equipment Used black stool HS curls Standing Exercise Name standing hamstring curls Side bilateral Reps/Minutes 2x12 ea Comments BUE uspport 4 Standing Exercise Name Mini squats + TrA brace Equipment Used rail BUE support Reps/Minutes 2x10 3 Standing Exercise Name Standing hip ext at 45 deg ABD Side bilateral Resistance level 2 teal TB Reps/Minutes 2x10 ea Comments BUE support 2 Standing Exercise Name Crab walks Side bilateral Resistance level 2 teal TB Reps/Minutes x 1 lap Comments 20ft total; around ankles 1 Standing Exercise Name Paloff press + rotation Side bilateral Resistance peach TB Reps/Minutes 2x15 ea Other Exercises Suitcase carry Side bilateral Resistance 10# Equipment Used DBs Reps/Minutes x 2 laps ea PT-OP-T Assessment and Plan Start: 05/10/23 09:34 Freq: Status: Active Protocol: Document 06/09/23 08:28 AB (Rec: 06/09/23 09:52 AB [id number]) Physical Therapy Assessment Goals Five Impairment Pain symptoms Short Term Goal (STG) Pt to report no TTP over left lateral paraspinals to show improving pain symptoms and soft tissue mobility. STG Duration 4 Fdc Goal (LTG) Pt to report no TTP over left lateral paraspinals or right gluteal region to show resolution of pain symptoms and improved soft tissue mobility. LTG Duration 6 Four Impairment Outcome Measures (subjective symptom report) Short Term Goal (STG) Pt's LEFS score to improve to 26/80 or better and Modified Oswestry score to improve to 8 /50 or better to show improving symptoms and QOL. STG Duration 4 Fdc Goal (LTG) Pt's LEFS score to improve to 40/80 or better and Modified Oswestry score to improve to 5 /50 or better to show improving symptoms and QOL. LTG Duration 6 Three Impairment Muscular weakness Short Term Goal (STG) Pt's gross LE MMT to improve to 4+/5 to show improving strength to perform ADLs, IADLs and other functional mobility. STG Duration 4 Fdc Goal (LTG) Pt's gross LE MMT to improve to 5/5 to show improved strength to perform ADLs, IADLs, other functional mobility and to participate in recreational activities. LTG Duration 6 Two Impairment Lumbar spine AROM deficits Short Term Goal (STG) Pt's lumbar spine rotation AROM to improve to 40 degrees to improve ability to perform ADLs and IADLs. STG Duration 4 Handle Maker Goal (LTG) Pt's lumbar spine rotation AROM to improve to 50 degrees to improve ability to perform ADLs, IADLs and recreational activities. LTG Duration 6 One Impairment Lumbar spine AROM deficits Short Term Goal (STG) Pt's lumbar spine flexion AROM to improve to ankles to be able to perform ADLs and IADLs with increased ease. STG Duration 4 Handle Maker Goal (LTG) Pt's lumbar AROM flexion to improve to ankles with minimal to no symptoms to be able to perform ADLs, IADLs and recreational activities. LTG Duration 6 Assessment Summary Assessment Due to her continued improvement in symptoms and overall function, the pt was again progressed by adding standing hip strengthening and mobility exercises including fire hydrants, stool hip IR/ER , and adding resistance to existing exercises. The pt reports good tolerance but requires occasional cues to perform exercises with good posture. Her HEP was updated, and the pt will perform it independently for 1 week, and tolerance should be assessed at her next visit. Physical Therapy Plan Frequency and Duration Frequency of Treatment 2x/Week Duration of treatment (weeks) 6 Plan of Care Start Date 05/10/23 Plan of Care End Date 06/21/23 Therapeutic Interventions Therapeutic Interventions Balance Training,Gait Training ,Home Exercise Program,Joint Mobilizations,Manual Therapy, Neuromuscular Re-education, Patient/Caregiver Education, Self-Care/Home Management,Soft Tissue Mobilization,Taping, Therapeutic Activities, Therapeutic Exercises Modalities Cold Pack/Ice Massage,Electric Stimulation Next Visit Focus/Plan Next Note Type Treatment Note Next Visit Plan Assess tolerance to updated HEP and modify as indicated.
--- NOTE | 2023-06-16 10:45 | PT.OTN ---
Current Diagnoses Unilateral primary osteoarthritis, right hip (06/16/23) Lumbago with sciatica, right side (06/16/23) Physical Therapy Treatment Note PT-OP-A Visit Information Start: 05/10/23 09:34 Freq: Status: Active Protocol: Document 06/16/23 08:32 AB (Rec: 06/16/23 10:44 AB [id number]) Out-Patient Physical Therapy Visit Information Visit Information Visit Type Treatment Note Visit Start Time 08:30 Visit Stop Time 09:15 Total Visit Minutes 45 Visit Number 9 PT-OP-B Current Condition Start: 05/10/23 09:34 Freq: Status: Active Protocol: Document 05/26/23 08:33 AB (Rec: 05/26/23 10:52 AB [id number]) Current Condition History of Current Condition Onset Date 04/06/23 Current Complaints Occasional twinges in her low back, N/T occasionally down lateral RLE History of Current Condition Pt reports she was performing hip lifts as a part of her exercise routine, when she felt a twing in her right low back. For two days afterwards she continued with tightness and pain on that side which progressed to N/T over her right gluteal region and lateral thigh. She took tylenol and use ice with minimal improvement. However, since then her symptoms have significantly improved, and she now only experiences these twinges occasionally and randomly (1/10 at worst). She cannot think of specific movements that cause onset of symptoms. The pt also reports she is a candidate for R JOE, but she is being followed by ortho surgeon to determine when she will be needing JOE. Though she notes her R hip sometimes causes 7/10 pain when she is active. Prior Treatments and Tests None Treatment Goals Patient/Caregiver Goals To fully resolve her symptoms and build up her strength. PT-OP-C Subjective Start: 05/10/23 09:34 Freq: Status: Active Protocol: Document 06/16/23 08:32 AB (Rec: 06/16/23 10:44 AB [id number]) OP-PT Subjective Patient Comments Patient Comments The pt reports she is only having mild LBP and hip pain in the morning, but describes it more like soreness at this point. PT-OP-F Manual Assessment Start: 05/10/23 09:34 Freq: Status: Active Protocol: Document 05/10/23 09:35 AB (Rec: 05/10/23 11:26 AB [id number]) Manual Assessments Other Manual Assessments Other Manual Assessments Bilateral Slump Test: negative PT-OP-H Neuro Start: 05/10/23 09:34 Freq: Status: Active Protocol: Document 05/10/23 09:35 AB (Rec: 05/10/23 11:26 AB [id number]) Sensation Evaluation Gross Sensation Gross Sensation WNL PT-OP-J Posture/Palpation/Skin Start: 05/10/23 09:34 Freq: Status: Active Protocol: Document 05/26/23 08:33 AB (Rec: 05/26/23 10:52 AB [id number]) Palpation Assessment Location Two Palpation Location Right gluteal region Palpation Findings None/Normal Palpation Details Denies TTP One Palpation Location left lumbar paraspinals Palpation Findings None/Normal Palpation Details Denies TTP PT-OP-K Range of Motion Start: 05/10/23 09:34 Freq: Status: Active Protocol: Document 05/26/23 08:33 AB (Rec: 05/26/23 10:52 AB [id number]) Lumbar Spine Range of Motion Lumbar Spine Active Testing Position Standing Extension 20 Rotation Left 45 Rotation Right 45 Comments flexion to distal ankles ( reports tightness over left hamstring) SB bilaterally to fibular head PT-OP-M Strength Start: 05/10/23 09:34 Freq: Status: Active Protocol: Document 05/26/23 08:33 AB (Rec: 05/26/23 10:52 AB [id number]) Hip Strength Hip Manual Muscle Testing Right Flexion (L2) 4 Good Extension (S1) 4- Good- Abduction 4 Good Adduction 4 Good External Rotation 4 Good Internal Rotation 4 Good Comments Denies pain Left Flexion (L2) 4 Good Extension (S1) 3+ Fair+ Abduction 4 Good Adduction 4 Good External Rotation 4 Good Internal Rotation 4 Good Comments Denies pain Knee Strength Knee Manual Muscle Testing Right Flexion (S2) 5 Normal Extension (L3) 5 Normal Left Flexion (S2) 4+ Good+ Extension (L3) 5 Normal Ankle/Foot Strength Ankle and Foot Manual Muscle Testing Right Dorsiflexion (L4) 5 Normal Plantarflexion (S1) 5 Normal Left Dorsiflexion (L4) 5 Normal Plantarflexion (S1) 5 Normal PT-OP-Q Treatments Start: 05/10/23 09:34 Freq: Status: Active Protocol: Document 06/16/23 08:32 AB (Rec: 06/16/23 10:44 AB [id number]) Cardio Equipment Recumbent Bicycle Duration (Minutes) 5 Therapeutic Exercises Supine Exercises 3 Supine Exercise Name glute bridge Reps/Minutes 2x10 Comments even stance Standing Exercises Fire hydrants Standing Exercise Name Standing fire hydrants Side bilateral Reps/Minutes 2x10ea Stool hip IR and IR Side bilateral Resistance 2x10 Equipment Used black stool HS curls Standing Exercise Name standing hamstring curls Side bilateral Reps/Minutes 2x12 ea Comments BUE uspport 4 Standing Exercise Name Mini squats + TrA brace Equipment Used rail BUE support Reps/Minutes 2x10 3 Standing Exercise Name Standing hip ext at 45 deg ABD Side bilateral Reps/Minutes 2x15 Comments BUE support 2 Standing Exercise Name Crab walks Side bilateral Resistance level 2 teal TB Reps/Minutes x 1 lap Comments 20ft total; around ankles 1 Standing Exercise Name Paloff press + rotation; chops and lift Side bilateral Resistance peach TB Reps/Minutes 1x15 ea, 1x5 chops/lifts Other Exercises Self hip lateral traction Side right Reps/Minutes 1n31una Comments right leg on step, using hands to push knee medially PT-OP-T Assessment and Plan Start: 05/10/23 09:34 Freq: Status: Active Protocol: Document 06/16/23 08:32 AB (Rec: 06/16/23 10:44 AB [id number]) Physical Therapy Assessment Goals Five Impairment Pain symptoms Short Term Goal (STG) Pt to report no TTP over left lateral paraspinals to show improving pain symptoms and soft tissue mobility. STG Duration 4 Residential Goal (LTG) Pt to report no TTP over left lateral paraspinals or right gluteal region to show resolution of pain symptoms and improved soft tissue mobility. LTG Duration 6 Four Impairment Outcome Measures (subjective symptom report) Short Term Goal (STG) Pt's LEFS score to improve to 26/80 or better and Modified Oswestry score to improve to 8 /50 or better to show improving symptoms and QOL. STG Duration 4 Residential Goal (LTG) Pt's LEFS score to improve to 40/80 or better and Modified Oswestry score to improve to 5 /50 or better to show improving symptoms and QOL. LTG Duration 6 Three Impairment Muscular weakness Short Term Goal (STG) Pt's gross LE MMT to improve to 4+/5 to show improving strength to perform ADLs, IADLs and other functional mobility. STG Duration 4 Chore Worker Goal (LTG) Pt's gross LE MMT to improve to 5/5 to show improved strength to perform ADLs, IADLs, other functional mobility and to participate in recreational activities. LTG Duration 6 Two Impairment Lumbar spine AROM deficits Short Term Goal (STG) Pt's lumbar spine rotation AROM to improve to 40 degrees to improve ability to perform ADLs and IADLs. STG Duration 4 Chore Worker Goal (LTG) Pt's lumbar spine rotation AROM to improve to 50 degrees to improve ability to perform ADLs, IADLs and recreational activities. LTG Duration 6 One Impairment Lumbar spine AROM deficits Short Term Goal (STG) Pt's lumbar spine flexion AROM to improve to ankles to be able to perform ADLs and IADLs with increased ease. STG Duration 4 Chore Worker Goal (LTG) Pt's lumbar AROM flexion to improve to ankles with minimal to no symptoms to be able to perform ADLs, IADLs and recreational activities. LTG Duration 6 Assessment Summary Assessment The pt demonstrated good recall and tolerance of updated HEP which was reviewed today. Additional progression to paloff press was performed today (chops and lifts). The pt required verbal and visual cues to perform this exercise with good form, specifically to coordinated LE motion. The plan is to d/c pt next visit to independent HEP. Physical Therapy Plan Frequency and Duration Frequency of Treatment 2x/Week Duration of treatment (weeks) 6 Plan of Care Start Date 05/10/23 Plan of Care End Date 06/21/23 Therapeutic Interventions Therapeutic Interventions Balance Training,Gait Training ,Home Exercise Program,Joint Mobilizations,Manual Therapy, Neuromuscular Re-education, Patient/Caregiver Education, Self-Care/Home Management,Soft Tissue Mobilization,Taping, Therapeutic Activities, Therapeutic Exercises Modalities Cold Pack/Ice Massage,Electric Stimulation Next Visit Focus/Plan Next Note Type Treatment Note Next Visit Plan Possible d/c
--- NOTE | 2023-07-05 09:40 | PT.OTN ---
Current Diagnoses Unilateral primary osteoarthritis, right hip (07/05/23) Lumbago with sciatica, right side (07/05/23) Physical Therapy Treatment Note PT-OP-A Visit Information Start: 05/10/23 09:34 Freq: Status: Active Protocol: Document 07/05/23 08:40 AB (Rec: 07/05/23 09:39 AB [id number]) Out-Patient Physical Therapy Visit Information Visit Information Visit Type Discharge Summary Visit Start Time 08:34 Visit Stop Time 09:15 Total Visit Minutes 41 Visit Number 10 Evaluation Information Evaluation Date 05/10/23 PT-OP-B Current Condition Start: 05/10/23 09:34 Freq: Status: Active Protocol: Document 07/05/23 08:40 AB (Rec: 07/05/23 09:39 AB [id number]) Current Condition History of Current Condition Onset Date 04/06/23 Current Complaints Occasional twinges in her low back, N/T occasionally down lateral RLE History of Current Condition Pt reports she was performing hip lifts as a part of her exercise routine, when she felt a twing in her right low back. For two days afterwards she continued with tightness and pain on that side which progressed to N/T over her right gluteal region and lateral thigh. She took tylenol and use ice with minimal improvement. However, since then her symptoms have significantly improved, and she now only experiences these twinges occasionally and randomly (1/10 at worst). She cannot think of specific movements that cause onset of symptoms. The pt also reports she is a candidate for R JOE, but she is being followed by ortho surgeon to determine when she will be needing JOE. Though she notes her R hip sometimes causes 7/10 pain when she is active. Prior Treatments and Tests None Treatment Goals Patient/Caregiver Goals To fully resolve her symptoms and build up her strength. Prior Functional Status Baseline Function- ADL's Independent Baseline Function- Mobility Independent Baseline Function- Other IND with all ADLs, IADLs, work and recreational activities. Current Functional Impairments (Reported) Functional Limitations- Recreation/ Pt reports he symptoms are no Hobbies longer stopping her from engaging in any activities. She is back to her normal exercise routine. PT-OP-C Subjective Start: 05/10/23 09:34 Freq: Status: Active Protocol: Document 07/05/23 08:40 AB (Rec: 07/05/23 09:39 AB [id number]) OP-PT Subjective Patient Comments Patient Comments Mari states that she feels ready to discharge. While she recently had a flare up which has been causing her low back muscles to spasm occasionally and feel stiff when she has been sitting for a while, her symptoms and strength have improved since the start of PT . She also feels confident that she has gained the education to continue with an independent HEP. Patient Questionnaires Lower Extremity Functional Scale LEFS Score 51/80 LEFS Impairment 20 to 39% Impaired (Score 48- 62) Oswestry Low Back Index Oswestry Score 8/50 Oswestry Impairment 1 to 19% Impaired (Score 1-19) PT-OP-F Manual Assessment Start: 05/10/23 09:34 Freq: Status: Active Protocol: Document 07/05/23 08:40 AB (Rec: 07/05/23 09:39 AB [id number]) Manual Assessments Other Manual Assessments Other Manual Assessments Bilateral Slump Test: positive on right side (very mild symptoms) PT-OP-H Neuro Start: 05/10/23 09:34 Freq: Status: Active Protocol: Document 05/10/23 09:35 AB (Rec: 05/10/23 11:26 AB [id number]) Sensation Evaluation Gross Sensation Gross Sensation WNL PT-OP-J Posture/Palpation/Skin Start: 05/10/23 09:34 Freq: Status: Active Protocol: Document 07/05/23 08:40 AB (Rec: 07/05/23 09:39 AB [id number]) Palpation Assessment Location Two Palpation Location Right gluteal region Palpation Findings None/Normal Palpation Details Denies TTP One Palpation Location left lumbar paraspinals Palpation Findings None/Normal Palpation Details Denies TTP PT-OP-K Range of Motion Start: 05/10/23 09:34 Freq: Status: Active Protocol: Document 07/05/23 08:40 AB (Rec: 07/05/23 09:39 AB [id number]) Lumbar Spine Range of Motion Lumbar Spine Active Testing Position Standing Extension 20 Rotation Left 55 Rotation Right 55 Comments flexion: to toes (denies symptoms) SB: bilaterally to fibular head PT-OP-M Strength Start: 05/10/23 09:34 Freq: Status: Active Protocol: Document 07/05/23 08:40 AB (Rec: 07/05/23 09:39 AB [id number]) Hip Strength Hip Manual Muscle Testing Right Flexion (L2) 4+ Good+ Extension (S1) 4 Good Abduction 4+ Good+ Adduction 4+ Good+ External Rotation 4+ Good+ Internal Rotation 4+ Good+ Comments Denies pain Left Flexion (L2) 4+ Good+ Extension (S1) 4 Good Abduction 4+ Good+ Adduction 4+ Good+ External Rotation 4+ Good+ Internal Rotation 4+ Good+ Comments Denies pain Knee Strength Knee Manual Muscle Testing Right Flexion (S2) 5 Normal Extension (L3) 5 Normal Left Flexion (S2) 4+ Good+ Extension (L3) 5 Normal Ankle/Foot Strength Ankle and Foot Manual Muscle Testing Right Dorsiflexion (L4) 5 Normal Plantarflexion (S1) 5 Normal Left Dorsiflexion (L4) 5 Normal Plantarflexion (S1) 5 Normal PT-OP-Q Treatments Start: 05/10/23 09:34 Freq: Status: Active Protocol: Document 07/05/23 08:40 AB (Rec: 07/05/23 09:39 AB [id number]) Cardio Equipment Recumbent Bicycle Duration (Minutes) 5 Therapeutic Exercises Supine Exercises A-P pelvic tilts Reps/Minutes 2 min 3 Supine Exercise Name glute bridge Reps/Minutes 2x10 Comments even stance 1 Supine Exercise Name LTRs Reps/Minutes 2 min Standing Exercises Fire hydrants Standing Exercise Name Standing fire hydrants Side bilateral Reps/Minutes 2x10ea Stool hip IR and IR Side bilateral Resistance 2x10 Equipment Used black stool 4 Standing Exercise Name Mini squats + TrA brace Equipment Used rail BUE support Reps/Minutes 2x10 2 Standing Exercise Name Crab walks Side bilateral Resistance level 2 teal TB Reps/Minutes x 1 lap Comments 20ft total; around ankles Self-Care/Home Management Treatment Education Patient Education Home Exercise Program PT-OP-T Assessment and Plan Start: 05/10/23 09:34 Freq: Status: Active Protocol: Document 07/05/23 08:40 AB (Rec: 07/05/23 09:39 AB [id number]) Physical Therapy Assessment Goals Five Impairment Pain symptoms Short Term Goal (STG) Pt to report no TTP over left lateral paraspinals to show improving pain symptoms and soft tissue mobility. STG Duration 4 Automotive Detailer Goal (LTG) Pt to report no TTP over left lateral paraspinals or right gluteal region to show resolution of pain symptoms and improved soft tissue mobility. LTG Duration 6 Four Impairment Outcome Measures (subjective symptom report) Short Term Goal (STG) Pt's LEFS score to improve to 26/80 or better and Modified Oswestry score to improve to 8 /50 or better to show improving symptoms and QOL. STG Duration 4 Automotive Detailer Goal (LTG) Pt's LEFS score to improve to 40/80 or better and Modified Oswestry score to improve to 5 /50 or better to show improving symptoms and QOL. LTG Duration 6 Three Impairment Muscular weakness Short Term Goal (STG) Pt's gross LE MMT to improve to 4+/5 to show improving strength to perform ADLs, IADLs and other functional mobility. STG Duration 4 Automotive Detailer Goal (LTG) Pt's gross LE MMT to improve to 5/5 to show improved strength to perform ADLs, IADLs, other functional mobility and to participate in recreational activities. LTG Duration 6 Two Impairment Lumbar spine AROM deficits Short Term Goal (STG) Pt's lumbar spine rotation AROM to improve to 40 degrees to improve ability to perform ADLs and IADLs. STG Duration 4 Custodial Goal (LTG) Pt's lumbar spine rotation AROM to improve to 50 degrees to improve ability to perform ADLs, IADLs and recreational activities. LTG Duration 6 One Impairment Lumbar spine AROM deficits Short Term Goal (STG) Pt's lumbar spine flexion AROM to improve to ankles to be able to perform ADLs and IADLs with increased ease. STG Duration 4 Automotive Detailer Goal (LTG) Pt's lumbar AROM flexion to improve to ankles with minimal to no symptoms to be able to perform ADLs, IADLs and recreational activities. LTG Duration 6 Progress Towards Goals Progress Towards Goals Goals Met Assessment Summary Assessment Mari has completed 10 visits of skilled PT to address her low back and hip pain, which was limiting her ability to participate in her IADLs. Currently, she demonstrates significant improvement in her lumbar spine AROM and LE muscular strength. While she has had a flare up in her symptoms recently, overall her symptoms have significantly improved, as demonstrated by her return to her recreational activities. Based on the improvement of her deficits and achievement of goals, the pt is being discharged from skilled PT to an independent HEP. The pt was educated on returning to MD or PT if symptoms return or worsen, and was also instructed on performance of HEP. Physical Therapy Plan Therapeutic Interventions Therapeutic Interventions Balance Training,Gait Training ,Home Exercise Program,Joint Mobilizations,Manual Therapy, Neuromuscular Re-education, Patient/Caregiver Education, Self-Care/Home Management,Soft Tissue Mobilization,Taping, Therapeutic Activities, Therapeutic Exercises Modalities Cold Pack/Ice Massage,Electric Stimulation Discharge Physical Therapy Discharge Reasons Goals Met Next Visit Focus/Plan Next Visit Plan Pt has been discharged.
== END 2023-07-05 15:02 | disposition home or self-care (01) ==
LOC: PHYS 08:30
PROVIDERS: Family Provider Internal Medicine; PCP Internal Medicine; Referring Provider Internal Medicine; Visit Provider Internal Medicine
DX: M54.41 Lumbago with sciatica, right side (principal); M16.11 Unilateral primary osteoarthritis, right hip
CPT/HCPCS: 97110; 97112; 97140; 97161; 97530; 97535

== ENCOUNTER → 2024-02-08 13:33 | Outpatient (CLI) | payer BC, SELFPAY ==
[2018-10-04 19:01] VITALS: BMI 37.5
--- NOTE | 2024-02-08 13:34 | DI.MG.S_ITS ---
UNILATERAL LEFT DIGITAL DIAGNOSTIC MAMMOGRAM 3D/2D SHORT-TERM FOLLOW-UP POST LUMPECTOMY: 02/08/2024 CLINICAL: Patient returns for a 6 month follow up of the left breast. Comparison is made to exams dated: 06/24/2023 mammogram, 06/10/2023 mammogram, and 06/02/2022 mammogram - [facility]. There are scattered areas of fibroglandular density in the left breast (category b / 25%-50% glandular tissue). The left breast has stable post-operative findings. There is a 0.8 cm oval focal asymmetry in the left breast at 1 o'clock middle depth. This is more prominent and increased in size and correlates with ultrasound findings. No other significant masses or calcifications are seen in the breast. IMPRESSION: INCOMPLETE: NEEDS ADDITIONAL IMAGING EVALUATION The 0.8 cm oval focal asymmetry in the left breast is indeterminate. An ultrasound is recommended for further evaluation and is scheduled to immediately follow this examination. This exam was interpreted at Station ID: [id number]. NOTE: For mammograms, a report in lay terms will be sent to the patient. Approximately 15% of breast malignancies will not be visualized mammographically. In the management of a palpable breast mass, a negative mammogram must not discourage biopsy of a clinically suspicious lesion. Electronically Signed By: Gio Simmons M.D. aty/:02/08/2024 14:56:24 ACR BI-RADS Category 0: Incomplete 3340F
--- NOTE | 2024-02-08 13:34 | DI.US.S_ITS ---
SECONDLOOK ULTRASOUND OF LEFT BREAST AND AXILLA: 02/08/2024 CLINICAL: Follow up from addtional views. Comparison is made to exams dated: 02/08/2024 mammogram, 06/24/2023 ultrasound, 06/24/2023 mammogram, 06/10/2023 mammogram, and 06/02/2022 mammogram - [facility]. Color flow and real-time ultrasound of the left breast and axilla were performed. Gibbons scale images of the real-time examination were reviewed. The left breast has post-operative findings. There is a 0.3 cm x 0.2 cm x 0.2 cm oval cyst in the left breast at 1 o'clock middle depth 4 cm from the nipple. This oval cyst is hypoechoic with internal echoes. This abnormality is less prominent but appears much smaller than estimated on mammography evaluation from earlier same day. Mammographic findings appear slightly larger and more prominent. Color flow imaging demonstrates that there is no vascularity present. No significant abnormalities were seen sonographically in the left axilla. IMPRESSION: SUSPICIOUS OF MALIGNANCY The 0.3 cm x 0.2 cm x 0.2 cm oval cyst in the left breast is consistent with a complex cyst or a complicated cyst. Although this is smaller, the mammographic findings from earlier same day showed interval increase in conspicuity and size. Given patient's prior left breast cancer and suspected increase in size and conspicuity of the focal asymmetry, this finding is at a low suspicion for malignancy and better visualized by mammography. A stereotactic biopsy is recommended. However, given the discrepancy between modalities. The patient prefers to pursue imaging surveillance in lieu of biopsy at this time. A follow-up left mammogram and an ultrasound in 6 months is recommended to demonstrate stability. Patient also given instructions to return sooner if development of any clinically suspicious findings in the interim. Findings and recommendations were discussed with the patient by Dr. Simmons over the telephone during today's examination. This exam was interpreted at Station ID: [id number]. Electronically Signed By: Gio matthewy/:02/08/2024 16:01:00 Entry: - 02/09/2024 14:57:45 letter sent: Followup Recommended Ultrasound BI-RADS: 4a Low suspicion for malignancy
== END ==
LOC: MAMMO 13:33
PROVIDERS: Family Provider Internal Medicine; PCP Student in an Organized Health Care Education/Training Program; Referring Provider Student in an Organized Health Care Education/Training Program; Visit Provider Student in an Organized Health Care Education/Training Program
DX: R92.8 Other abnormal and inconclusive findings on diagnostic imaging of breast (principal); N60.02 Solitary cyst of left breast; R92.322 Mammographic fibroglandular density, left breast
CPT/HCPCS: 76642; 77065; G0279

== ENCOUNTER → 2024-06-07 11:23 | Outpatient (CLI) | payer OTHER, SELFPAY ==
[2018-10-04 19:01] VITALS: BMI 37.5
--- NOTE | 2024-06-07 11:24 | DI.NM.S_ITS ---
PROCEDURE: NM SENTINEL NODE INJECT ONLY RADIOPHARMACEUTICAL: 0.5-1.0 mCi Millipore filtered Tc-99m sulfur colloid. INDICATIONS: left breast cancer COMPARISON: None. PROCEDURE: The area around the nipple was prepped and draped in a sterile fashion. Tc-99m sulfur colloid was injected intra-dermally around the outer edge of the areola in the left breast. No image was obtained. IMPRESSION: Administration of radiotracer into the left breast periareolar region for intra-operative sentinel lymph node localization. Dictated by: Patel Sanchez M.D. on 06/07/2024 at 12:51 Approved by: Patel Sanchez M.D. on 06/07/2024 at 12:52
== END ==
PROVIDERS: Family Provider Internal Medicine; PCP Student in an Organized Health Care Education/Training Program; Referring Provider Surgery; Visit Provider Surgery
DX: C50.912 Malignant neoplasm of unspecified site of left female breast (principal); Z17.0 Estrogen receptor positive status [ER+]
CPT/HCPCS: 38792; A9541

== ENCOUNTER 2024-06-07 11:25 | Day surgery (SDC) | payer OTHER, SELFPAY ==
[2018-10-04 19:01] VITALS: BMI 37.5
[2024-06-05 09:06] VITALS: BMI 39.0
[2024-06-07] VITALS (15 sets, daily range): BP systolic 118–146; BP diastolic 54–91; PULSE 13–101; RESP 10–93; TEMP 36.3–36.8; O2SAT 92–99; BMI 38.0
--- NOTE | 2024-06-07 | PATH_ITS ---
[facility] Accession Number: [id number] No. of containers..03 Tissue . 01 Material submitted: . PART A: breast - RIGHT BREAST PART B: breast - LEFT BREAST PART C: lymph node - LEFT BREAST AXILLARY LYMPH NODES . 01 Diagnosis: A. RIGHT BREAST, SIMPLE MASTECTOMY: Skin with no significant histomorphologic abnormality. Benign breast parenchyma with no significant histomorphologic abnormality. Background fibrocystic change, consists of cystic dilatation of terminal ductules, apocrine metaplasia, usual ductal hyperplasia, adenosis, and stromal fibrosis. . B. LEFT BREAST, TOTAL MASTECTOMY: Invasive carcinoma of the breast. Please see Case Summary. . C. LEFT BREAST AXILLARY LYMPH NODES, EXCISION: Two lymph nodes negative for metastatic carcinoma by immunohistochemistry (0/2). Please see Case Summary. . . . CASE SUMMARY - Invasive carcinoma of the breast. . . Specimen: Total mastectomy. . Specimen laterality: Left. . Tumor Tumor site: Upper outer quadrant. Clock position: 1 o'clock, middle depth. Histologic type: Invasive carcinoma of no special type (ductal). . Histologic grade: Glandular/tubular differentiation: Score 3 of 3. Nuclear pleomorphism: Score 3 of 3. Mitotic rate: Score 2 of 3. Overall grade: Grade 3 (Score 8 of 9). . Tumor size: 6.0 cm (slices 12 through 16, 1.2 cm / slice) predominant irregular mass with multiple, minute (less than 1 mm - 4 mm) invasive foci scattered throughout the breast tissue, greater than 5 mm from the predominant mass. . Ductal carcinoma in situ: Present; negative for extensive indraductal component, but present as multiple, minute (1-2 mm) foci scattered throughout the breast tissue. . Tumor extent: Not applicable. . Lymphatic and/or vascular invasion: Present, extensive. . Dermal lymphatic and/or vascular invasion: Present. Please see comment. . Treatment effect: No known presurgical therapy (patient is status post left lumpectomy 05/23/2014 per oncology progress note from 05/18/2019). . Treatment effect in the lymph nodes: Not applicable. . Margins Margin status for invasive carcinoma: All margins negative for invasive carcinoma. . Distance from invasive carcinoma to closest margin: Closest margin is posterior at 4 mm. Anterior superior margin: Greater than 10 mm. Anterior inferior margin: Greater than 10 mm. . Margin status for DCIS: All margins negative for DCIS. Posterior margin: Greater than 10 mm. Anterior superior margin: Greater than 10 mm. Anterior inferior margin: Greater than 10 mm. . Regional lymph nodes: Two regional lymph nodes negative for tumor (0/2). . Distant metastasis: Not applicable. . pTNM classification (AJCC 8th Edition): at least pT3, please see comment pN0 pM not applicable . Special studies: Predictive marker immunohistochemical studies are performed on block B12 with the invasive carcinoma showing the following results: . Estrogen receptor (SP1): Positive (81-90%, strong intensity). Progesterone receptor (1E2): Positive (81-90%,strong intensity). Her2 (4B5): Equivocal (2+). FISH studies requested; results will be reported as an addendum. . Additional findings: Skin tag, seborrheic keratoses x 2, and a skin with a central, well-healed scar (no nipple present, prior lumpectomy 05/23/2014 per oncology progress note from 05/18/2019); biopsy site changes are present. Smaller fragment of skin and breast tissue (weight 56 grams) with no grossly identifiable or histologic abnormality. . Internal controls for ER and OR are positive. Cold ischemic time cannot be calculated. The scoring criteria for breast biomarkers by immunohistochemistry is based on the ASCO/CAP guidelines (Rajeev AC et al, J Clin Oncol: 2017Apr 05;36(20):6157-2997 and Marnie GEORGE et al, Arch Pathol Lab Med: 2009;134(6):907-22). Deparaffinized sections of formalin fixed tissue (along with appropriate positive controls) are incubated with the above antibody(s). Using the automated Dunning stainer, tissue is incubated with the designated antibody which is then localized by a non-biotin, dual polymer detection system. The external controls are reviewed for appropriate reactivity and found to be adequate. Results on the target cell population are indicated above. These tests have not been validated on decalcified tissue. MRV 06/16/2024 1340 Local . 01 Comment: Part B: In the skin overlying the left breast, carcinoma is present within dermal lymphatic spaces and minute foci of invasive tumor are present within the dermis. If this correlates with the clinical features of inflammatory carcinoma, this carcinoma would be classified as T4d. If clinical signs of inflammatory carcinoma are not present, these findings do not change the T classification, but are an indicator of a poor prognosis. . Per quality control manager, parts of this case were also reviewed by Dr. Hough, who agrees with the interpretation. . 01 Electronically signed: . Yuli Anderson MD, Pathologist NPI- [id number] . 01 Gross description: . A. Received: In formalin with two patient identifiers and right breast, long lateral, short superior. Specimen: An oriented right simple mastectomy. Weight: 874 grams. Measurement: 16.9 cm superior to inferior, 20.1 cm medial to lateral, 5.5 cm anterior to posterior. Skin ellipse: Present, with unremarkable brewer wrinkled skin, 15.1 x 13.5 cm. Nipple/areola: A 1.4 x 1.2 cm everted nipple is within a 7.5 x 4.2 cm areola with no scars identified. Axillary tail: Not identified. Margins: The skin ellipse is marked with short suture superior and a long suture lateral, per the requisition. The margins are unremarkable and inked anterior-superior blue, anterior-inferior green, posterior black. Slices: Sectioned from lateral to medial into 18 slices. Lesions: No lesions identified. Other: The cut surfaces are yellow fibroadipose tissue with small hemorrhagic areas occupying less than 10% of the cut surface, and the fibroadipose tissue is less than 10% of the cut surface. Fixation: Specimen was removed on 06/07/2024 at 1340; cold ischemic time cannot be calculated; and total fixation time is approximately 65 hours following additional fixation. Director Of Therapy Services sections are submitted as follows: A1: Entire bisected nipple. A2. Upper outer quadrant. A3: Lower outer quadrant. A4: Lower inner quadrant. A5: Upper inner quadrant. B. Received: In formalin, with two identifiers and left breast, long stich lateral, short stitch superior. Specimen: An oriented left simple mastectomy and additional unoriented fragment of skin and attached breast tissue. Weight: Breast: 992 grams. Additional fragment: 56 grams. Measurement: Breast: 16.7 cm superior to inferior, 24.2 cm medial to lateral, 7.4 cm anterior to posterior. Additional fragment: 12.1 x 4.9 x 3.2 cm. Nipple/areola: Not present, replaced with scar, consistent with removal during a previous lumpectomy. Axillary tail: Not identified. Margins: The breast is oriented by the surgeon with a short suture superior and a long suture lateral, per the requisition. On the margins, two hemostatic clips are identified, one on the superior-anterior margin approximately 10 o'clock, the other at at 2 o'clock. The breast is inked: Anterior-superior blue, anterior-inferior green, posterior black, and the unoriented fragment has unremarkable margins and is inked orange. Slices: The breast is sectioned from medial to lateral into 20 slices. Skin ellipse: The breast has brewer skin with prominent dimpling and two cutaneous lesion. The first is brown and flat, measuring 0.8 x 0.8 cm widely free from the margins. The second is brewer and slightly raised, 0.7 x 0.4 cm, and is 1.5 cm from the nearest superior margin. A well-healed linear scar is located centrally 7.2 x 0.2 cm on the breast. The skin on the additional fragment has a small polypoid skin lesion, 0.3 x 0.3 x 0.1 cm located 0.6 cm from the nearest margin. Lesion: One lesions identified. Description: An ill-defined, brewer, firm, stellate lesion with adjacent fibrous tissue consistent with biopsy site changes. Five U-shaped biopsy clips are identified within adjacent slices 12 and 13. Size: 1.9 x 1.6 x 0.8 cm is the presumed lesion while the adjacent fibrous tissue extends across an area of 6.5 x 2.9 x 1.1 cm. Slices involved: The presumed lesion is within slices 13-15 while the adjacent fibrous area extends from slices 10-16, and is located in the upper outer quadrant at approximately 1 o'clock middle depth. Distance to margins: The firm adjacent, presumed fibrous area is less than 0.1 cm from the posterior margin, and is greater than 2 cm from all remaining margins (the nearest posterior margin is within slice 14). Other: The remaining cut surfaces are yellow to white fibroadipose tissue with fibrous tissue occupying approximately 10% of the cut surface, and no additional lesions are identified. Fixation: The specimen was removed on 06/07/2024 at 1405; time in formalin not provided; cold ischemic time cannot be calculated; and total fixation time is approximately 65 hours following additional fixation. Director Of Therapy Services sections are submitted as follows: B1: Director Of Therapy Services scar. B2: Brown flat lesion. B3: Brewer, slightly raised lesion. B4: Polypoid skin nodule on additional tissue fragment. B5: Slice 9, no lesion. B6: Slice 10, fibrous area. B7: Slice 11, fibrous area. B8-B9: Composite slice 12 from anterior to posterior with connecting edges inked yellow, and biopsy site in B8. B10-B11: Composite slice 13 with biopsy site on both pieces and the conjoining cut surface inked yellow from anterior to posterior. B12-B13: Composite lesional area from slice 14 from anterior to posterior with the conjoining surfaces inked yellow. B14-B15: Composite superior portion of lesional area from anterior to posterior with conjoining edges inked yellow. B16-B17: Composite inferior portion of lesional area slice 15 from anterior to posterior, with conjoining areas inked yellow, and lesion to nearest posterior margin in B17. B18-B19: Slice 16, superior lesional area from anterior to posterior with adjoining edges inked yellow. B20-B21: Slice 16, inferior lesional area from anterior to posterior with adjoining edges inked yellow. B22: Slice 17, no lesion. B23: Anterior-superior margin from slices 13 and 14. B24: Upper inner quadrant. B25: Lower inner quadrant. B26: Lower outer quadrant. B27: Director Of Therapy Services additional fragment. C. Received in formalin with two patient identifiers and left breast axillary lymph nodes, is a fragment of yellow lobulated soft tissue fragment, 4.9 x 2.9 x 1.5 cm. Palpation reveals two brewer lymph node candidates, 1.1 x 0.5 x 0.3 cm to 1.7 x 1.5 x 1.1 cm. Submitted as follows: C1: Single bisected lymph node candidate. C2-C3: Single serially sectioned lymph node candidate. ([id number]) /MRV 06/09/2024 1500 Local . 01 Microscopic: . An immunohistochemistry panel is performed to further evaluate the cells of interest. The control stains show appropriate reactivity. . RESULTS: Block A1 GATA3: Negative. . The absence of GATA3 mitigates against the presence of mammary carcinoma. . Block B1 GATA3: Positive, supports dermal lymphatic invasion. . Blocks B2, B5, B8, B9, B12, B13, B16, B20, B26 GATA3: Positive in regions of interest. . The presence of GATA3 supports an interpretation of involvement by carcinoma of the breast at these foci. . Blocks B18, B19 ER: Positive in region of interest. CK5/6: Absent/diminished in region of interest. . The presence of strong estrogen receptor expression and diminished or absent CK5/6 expression supports and interpretation of ductal carcinoma in situ at these foci. . Block 25 D2-40: Positive, supports the presence of lymphovascular invasion. . Blocks C1 and C3 ISAIAH: Negative. . Two lymph nodes negative for carcinoma by immunohistochemistry studies. . * This test was developed and its performance characteristics determined by [facility]. It has not been cleared or approved by the U.S. Food and Drug Administration. The FDA has determined that such clearance or approval is not necessary. This test is used for clinical purposes. It should not be regarded as investigational or for research . 01 Pathologist provided ICD-10: C50.912 . 01 CPT . 966133, 528688, 667363, A31547, X05361, 509700, 011939, 294616 Specimen Comment: A courtesy copy of this report has been sent to [phone] Performed at: [address] [facility] [id number] MD Adan Moralez MD Phone: [phone]
[2024-06-07] MEDS: LACTATED RINGERS 1,000 ML 21 ML IV (11:56)
[2024-06-07] MEDS: ACETAMINOPHEN IV 1,000 MG/100 ML VIAL 400 MG IV (12:17)
--- NOTE | 2024-06-07 12:44 | PM.HP.1 ---
History of Present Illness History of Present Illness Date Patient Seen: 06/07/24 Time Patient Seen: 12:44 Chief complaint: Left mastectomy *OPB* Narrative: 63F hx of left breast ca sp lumpectomy SN and radiation and with new left breast cancer. No interval change in health. Here for bilateral mastectomy and left sentinel lymph node biopsy. [facility] Medical History (Updated 05/04/24 @ 17:32 by Larry Bustamante MD) Situational anxiety Acid reflux Seasonal allergies Osteoarthritis HTN (hypertension) Breast cancer, left Breast cancer (~2013) Surgical History (Updated 06/05/24 @ 08:59 by Rachelle Rasheed RN) S/P total hip arthroplasty (10/04/18) Hx of hernia repair S/P lumpectomy, left breast (05/23/14) Social History marital status: household members: spouse lives independently: Yes Smoking Status: Former smoker alcohol intake: current substance use type: does not use Meds Home Medications and Allergies Home Medications Medication Instructions Recorded Confirmed Type cetirizine 10 mg tablet (Zyrtec) 10 mg PO DAILY 04/18/18 06/07/24 History cholecalciferol (vitamin D3) 50 2,000 unit PO DAILY 04/18/18 06/07/24 History mcg (2,000 unit) tablet (Vitamin D3) cyanocobalamin (vitamin B-12) 1,000 mcg PO DAILY 04/18/18 06/07/24 History 1,000 mcg tablet (Vitamin B-12) lisinopril 20 1 tab PO DAILY 09/06/18 06/07/24 History mg-hydrochlorothiazide 12.5 mg tablet aspirin 81 mg tablet,delayed 81 mg PO DAILY 12/30/18 06/07/24 History release (Adult Low Dose Aspirin) Allergies Allergy/AdvReac Type Severity Reaction Status Date / Time codeine [CODEINE] AdvReac Intermediate VOMITING Verified 05/04/24 14:58 Exam Vital Signs (past 8 hours): - 06/07/24 12:06 Temperature 98 F Pulse Rate 101 H Respiratory Rate 24 Blood Pressure 144/91 H Pulse Oximetry 96 Oxygen Delivery Method Room Air Oxygen Delivery Method Room Air Narrative Exam Narrative: General adult woman alert oriented no acute distress Assessment & Plan Assessment and plan (1) Breast cancer, left: Qualifiers: Breast location: upper outer quadrant of breast Estrogen receptor status: positive Patient sex: female Qualified Code(s): C50.412 - Malignant neoplasm of upper-outer quadrant of left female breast; Z17.0 - Estrogen receptor positive status [ER+] Status: Acute Assessment & Plan narrative: 63-year-old woman history of left breast cancer and treated with prior lumpectomy and radiation here with a new left breast cancer. Plan for today is left mastectomy with sentinel lymph node biopsy and right simple mastectomy. Overview of the operation once again discussed. Operative risks including hemorrhage, infection, lymphedema, recurrence were reviewed. Questions have been answered. She provides her consent to proceed. Time-Based Coding :: [TOTAL MINUTES] spent with patient and on the chart (including review of chart, obtaining history, exam, reviewing outside data, placing orders, documenting exam and treatment plan, and counseling patient) on [DATE].
[2024-06-07] MEDS: CEFAZOLIN 2 GM/100 ML PREMIX 100 ML IV (12:52)
--- NOTE | 2024-06-07 13:15 | SUR.OPER ---
Supine on padded OR bed, head on pillow, arms secured on padded arm boards at <90 degrees abduction, legs uncrossed, safety belt at thigh, tape over blanket over lower legs.
[2024-06-07] MEDS: METHYLENE BLUE 50 MG/10 ML VIAL 90 MG IV (13:18)
[2024-06-07] MEDS: BUPIVACAINE 0.25% (PF) VIAL 30 ML INJ (13:37)
[2024-06-07] MEDS: LACTATED RINGERS 1,000 ML 42 ML IV (14:49)
--- NOTE | 2024-06-07 15:30 | PM.OP.1 ---
Operative Date/Time/Diagnoses Date of procedure: 06/07/24 Time of procedure: 15:31 Pre-op diagnosis: Left breast cancer Post-op diagnosis: same Procedure & Clinicians Procedure: Left mastectomy with sentinel lymph node biopsy Right simple mastectomy Same procedure as scheduled: Yes Indications: 63-year-old woman history of left breast cancer status post lumpectomy and radiation 2013. She developed a new 1 cm mass at the 1 o'clock position middle depth which is biopsy proven invasive ductal carcinoma high grade hormone positive HER2 equivocal. She is here for left mastectomy and prophylactic right simple mastectomy Surgeon: Larry Bustamante Chemistry Quality Control Technician: Sergio Díaz Anesthesia Type: General Operative Notes Findings: No uptake of radioactive tracer or methylene blue to the left axilla Specimen(s): other (Right breast long stitch lateral short stitch superior. Left breast long stitch lateral short stitch superior. Left breast axillary nodes) Estimated Blood Loss (mL): 100 Procedure in detail: Patient was brought to the operating room placed supine on the table. Bilateral lower extremity compression devices were applied. She received 2 g of Ancef prior to skin incision. She was intubated with an endotracheal tube. She was then prepped and draped in sterile fashion. Time-out was performed. We began with the benign/right side. An elliptical incision around the nipple areola complex was made with the knife. The subcutaneous tissue was divided with electrocautery. Skin flaps were raised to separate the breast tissue from the skin along the subdermal plexus. The dissection was extended superior to the clavicle, medial to the sternum, inferior the the inframamary fold and lateral to the anterior border of the latisimus dorsi. Next the breast tissue was from the underlying pectoralis fascia. The breast was passed off the field marked short stitch superior long stitch lateral. Hemostasis was achieved. A 19 [place] Willy drain was placed into the cavity and secured. Wound was irrigated. The mastectomy was closed with PDS suture followed by 4-0 Monocryl and the application of Dermabond to the skin. We next proceeded with the left mastectomy. Dilute methylene blue was injected into the subcutaneous tissue at the areola and massaged into the tissue. An elliptical incision around the nipple areola complex was made with the knife. The subcutaneous tissue was divided with electrocautery. Skin flaps were raised to separate the breast tissue from the skin along the subdermal plexus. The dissection was extended superior to the clavicle, medial to the sternum, inferior the the inframamary fold and lateral to the anterior border of the latisimus dorsi. Next the breast tissue was from the underlying pectoralis fascia. The breast was passed off the field marked short stitch superior long stitch lateral. Additional portion left breast tissue was excised known to allow for proper closure and was added to the specimen. The left axilla was bluntly dissected. The gamma probe was placed into the cavity and there was no significant uptake of radio activity or methylene blue. This was not unexpected given prior lumpectomy and radiation. The area between the axillary vein, latissimus dorsi, and serratus anterior was explored. A few lymph nodes were identified and were removed using hemoclips to secure the vessels and lymphatics. There were no pathologically enlarged nodes. I considered doing a formal axillary dissection however ultimately choose not to do so as the axillary contents were densely adherent to one another and the axillary vein probably from previous radiation and I suspect doing further dissection would significantly increase her risk of of vascular and lymphatic injury. A 19 [place]i Willy drain was placed into the cavity and secured. The wound was copiously irrigated and homeostasis was ensured. The mastectomy was closed with 3 0 Vicryl for the subcutaneous tissue and the skin was closed with 4 0 Monocryl followed by the application of Dermabond. Patient tolerated procedure well she emerged from anesthesia was extubated and transferred to recovery room in stable condition. Complications: none Post-operative Condition: stable Disposition: Acute Care
[2024-06-07] MEDS: LORazepam 2 MG/ML INJ 0.25 MG IV (16:24)
[2024-06-07] MEDS: OXYCODONE IR 5 MG TABLET PO ×2 (16:27→21:58)
--- NOTE | 2024-06-07 16:40 | SUR.PHASEI ---
Pt transfer to floor in bed by Al PRASAD. Pt with white belongings bag and glasses on.
[2024-06-07] MEDS: CELECOXIB 200 MG CAPSULE PO (21:58)
[2024-06-08] VITALS (7 sets, daily range): BP systolic 114–133; BP diastolic 61–83; PULSE 66–89; RESP 18–19; TEMP 36.4; O2SAT 93–97
[2024-06-08] MEDS: lisinopriL 20 MG TABLET PO (09:08)
[2024-06-08] MEDS: ACETAMINOPHEN 325 MG TABLET 650 MG PO (09:08)
[2024-06-08] MEDS: CELECOXIB 200 MG CAPSULE PO (09:08)
[2024-06-08] MEDS: OXYCODONE IR 5 MG TABLET PO (09:08)
[2024-06-08] MEDS: ENOXAPARIN 40 MG/0.4 ML SYRINGE SUBCUT (09:08)
--- NOTE | 2024-06-08 09:33 | OT.IP.EVAL ---
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 (06/07/24) Malignant neoplasm of unspecified site of left female breast (06/07/24) Estrogen receptor positive status [ER+] (06/07/24) Surgery Performed Operation Date: 06/07/24 13:15 Actual Procedures p Left Mastectomy With [place] Lymph Node Biopsy with right Mastectomy(Left) - Larry Bustamante MD Past Medical History (Last Updated 05/04/24 @ 17:20 by Larry Bustamante MD) Acid reflux Breast cancer (~2013) Breast cancer, left HTN (hypertension) Osteoarthritis Seasonal allergies Situational anxiety Surgical History (Last Updated 06/05/24 @ 08:59 by Rachelle Rasheed RN) Hx of hernia repair S/P lumpectomy, left breast (05/23/14) S/P total hip arthroplasty (10/04/18) Occupational Therapy Inpatient Evaluation/Re-Eval M1 PT/OT-IP Prior Functional Status Start: 06/08/24 10:10 Freq: NEEDED Status: Active Protocol: Document 06/08/24 10:11 [facility] (Rec: 06/08/24 10:29 [facility] [id number]) Medical Review Prior Functional Status Medical History Reviewed Yes Communication Independent Mobility and Gait Independent Activities of Daily Living and IADL's 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 Prior Functional Level (Other details) Pt family to be staying with her to assist. Social History Household Members spouse Living Arrangements House Number of Floors (Floors) Two Floors Number of Stairs To Enter/Railing? 3 steps with no rails and 12 steps with left rail to get upstairs. Home Environment High Toilet,Walk in Shower Home Equipment Straight Cane,Shower Seat without Backrest,Hand Held Shower M2 OT-IP Current Condition Start: 06/08/24 10:10 Freq: Status: Active Protocol: Document 06/08/24 10:11 [facility] (Rec: 06/08/24 10:29 [facility] [id number]) Occupational Therapy Current Condition Current Condition Evaluation Date 06/08/24 Treatment Diagnosis S/P Bilateral mastectomy with left sentinel lymph node biopsy Diagnosis Onset Date 06/07/24 Post Operative Precautions Other Precautions Limit lifting under 10-15 lbs, log rolling, no strenuous or repetitive activities, and to stop if she has any pain. M3 OT- IP Subjective and Pain Start: 06/08/24 10:10 Freq: Status: Active Protocol: Document 06/08/24 10:11 [facility] (Rec: 06/08/24 10:29 [facility] [id number]) OT- Subjective Occupational Therapy Visit Type Type Initial Evaluation Visit Start Time 08:55 Visit Stop Time 09:33 Occupational Therapy Visit Comments Patient Comments Pt agreed to get up. Patient/Caregiver Goals To go home. OT Pain Assessment Pain When Pain Assessed At Rest Pain Present Pain Present Pain Reported Location bilat breast Intensity 4 Scale Used Numeric (0 - 10) M4 OT- IP ADL's Start: 06/08/24 10:10 Freq: Status: Active Protocol: Document 06/08/24 10:11 [facility] (Rec: 06/08/24 10:29 [facility] [id number]) OT [id number] General Evaluation Self-Feeding Ability Independent OT ADL-Grooming Comments OT Grooming Comments Pt states did earlier. OT ADL-Oral Care Comments Oral Care Comments Pt states did earlier. OT ADL-Dressing General Eval Lower Body Dressing Ability Maximum Assistance Areas Needing Assistance Socks Comments OT Dressing Comments Pt will benefit from LB dressing equipment and assist at this time. OT ADL-Toileting Comments OT Toileting Comments Suggested best to stand to wipe at this time or have assist. OT ADL-Bathing Comments OT Bathing Comments Nursing to go over showering needs for pt. Pt does has a shower chair. M5 OT- IP IADL's Start: 06/08/24 10:10 Freq: Status: Active Protocol: Document 06/08/24 10:11 [facility] (Rec: 06/08/24 10:29 [facility] [id number]) OT-Instrumental Activities of Daily Living Deficits IADL Deficits Identified Deficits Home Safety Awareness Awareness of Need for Assistance at Home Good Awareness Ability to Problem Solve Emergency Able to Problem Solve Situations Home Safety Comments Pt has a supportive family to be able to assist her at home. Medication Management Medication Management Comments Best to have assist at this time. Money Management Money Management Comments Best to have assist. Meal Preparation Meal Preparation Caregiver Provides Assist Quality Assurance Supervisor Body Quality Assurance Supervisor Body Caregiver Provides Assist M6 OT- IP Functional Cognition Start: 06/08/24 10:10 Freq: Status: Active Protocol: Document 06/08/24 10:11 [facility] (Rec: 06/08/24 10:29 [facility] [id number]) Cognitive Factors Limiting Selfcare Function Cognitive Ability Level of Alertness Alert Patient Orientation Name,Age,Birthday,Month,Date, Year,Day of Week,Place, Situation Attention Span Ability Capable of Focused Attention, Capable of Sustained Attention Ability to Follow Commands Able to Follow One Step Commands Cognitive Comments Cognitive Assessment Comments Pt a little groggy but able to follow commands for ADL and mobility needs. OT- Vision and Hearing OT- Hearing Assessment OT- Hearing Assessment WFL OT- Vision Assessment Vision Assessment Comments Pt wear glasses. M7 OT- IP Mobility and Balance Start: 06/08/24 10:10 Freq: Status: Active Protocol: Document 06/08/24 10:11 [facility] (Rec: 06/08/24 10:29 [facility] [id number]) OT- Bed Mobility Assessment Supine to Sit Supine to Sit Assist Standby Assistance Sit to Supine Sit to Supine Assist Standby Assistance OT-Transfer Assessment Sit to and From Stand Sit to and from Stand Standby Assistance,Contact Guard Assistance Transfers Transfer Ability Standby Assistance,Contact Guard Assistance Technique Transfer Destination Bed,Chair Transfer Technique Stand Step Pivot Devices Transfer Assistive Devices Gait Belt,Front Wheeled Walker Comments Mobility Comments SBA to get out of bed. CGA to close SBA to stand and with FWW. JAN for the steps. OT- Balance Assessment Sitting Balance and Reactions Static Sitting Balance Ability Good Dynamic Sitting Balance Ability Good Standing Balance and Reactions Static Standing Balance Ability Good Dynamic Standing Balance Ability Fair M8 OT- IP Objective Assessments Start: 06/08/24 10:10 Freq: Status: Active Protocol: Document 06/08/24 10:11 [facility] (Rec: 06/08/24 10:29 [facility] [id number]) OT Gross Range of Motion Upper Extremity Range of Motion Assessment Within Functional Limits OT Strength Comments Strength Comments NT M9 OT- IP Assessment and Plan Start: 06/08/24 10:10 Freq: Status: Active Protocol: Document 06/08/24 10:11 [facility] (Rec: 06/08/24 10:29 [facility] [id number]) OT Summary Assessment and Plan Potential Rehabilitation Potential Good Analytic Complexity at Evaluation Low Summary OT Impairments Pain,Balance,Functional Mobility,Dressing,Toileting, Bathing,Toilet Transfers, Shower Transfers Progress Towards Goals Progressing Toward Goals,Slow Progress due to Pain Assessment Summary Pt MOD complexity and main barriers are pain, a little unsteady on her feet, and will need assist for some ADL and all IADL needs at this time. Pt educated to limited her lifting and stop if having any pain. Emphasized to do gentle stretches, and not do any strenuous or repetitive movements at this time. Pt will benefit from outpt PT when able and cleared by surgeon. Goals Grooming Goal Independent Dressing Goal Minimal Assistance Toileting Goal Independent Bathing Goal Minimal Assistance Toilet Transfer Goal Independent Shower Transfer Goal Standby Assistance Days to Meet Goals 2 Frequency of Treatment Other frequency 5x/week Treatment Plan OT Treatment Plan ADL Training,Functional Mobility,Patient/Family Education,Discharge Planning Discharge Recommendations OT Discharge Recommendations Home with 19/04 Assist Available,Outpatient PT Home Equipment Needs LB dressing equipment, FWW issued Transportation Needs at Discharge Private Vehicle
--- NOTE | 2024-06-08 10:34 | PT.IIE ---
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 (06/07/24) Malignant neoplasm of unspecified site of left female breast (06/07/24) Estrogen receptor positive status [ER+] (06/07/24) Surgery Performed Operation Date: 06/07/24 13:15 Actual Procedures p Left Mastectomy With [place] Lymph Node Biopsy with right Mastectomy(Left) - Larry Bustamante MD Surgical History (Last Updated 06/05/24 @ 08:59 by Rachelle Rasheed RN) Hx of hernia repair S/P lumpectomy, left breast (05/23/14) S/P total hip arthroplasty (10/04/18) Medical History (Last Updated 05/04/24 @ 17:20 by Larry Bustamante MD) Acid reflux Breast cancer (~2013) Breast cancer, left HTN (hypertension) Osteoarthritis Seasonal allergies Situational anxiety Physical Therapy Inpatient Evaluation/Re-Eval M1 PT/OT-IP Prior Functional Status Start: 06/08/24 10:10 Freq: NEEDED Status: Active Protocol: Document 06/08/24 10:11 [facility] (Rec: 06/08/24 10:29 [facility] [id number]) Medical Review Prior Functional Status Medical History Reviewed Yes Communication Independent Mobility and Gait Independent Activities of Daily Living and IADL's 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 Prior Functional Level (Other details) Pt family to be staying with her to assist. Social History Household Members spouse Living Arrangements House Number of Floors (Floors) Two Floors Number of Stairs To Enter/Railing? 3 steps with no rails and 12 steps with left rail to get upstairs. Home Environment High Toilet,Walk in Shower Home Equipment Straight Cane,Shower Seat without Backrest,Hand Held Shower M2 PT-IP Current Condition Start: 06/08/24 08:53 Freq: Status: Active Protocol: Document 06/08/24 09:00 [facility] (Rec: 06/08/24 10:34 [facility] [id number]) Physical Therapy Current Condition Current Condition Evaluation Date 06/08/24 Treatment Diagnosis B mastectomy M3 PT-IP Subjective Start: 06/08/24 08:53 Freq: Status: Active Protocol: Document 06/08/24 09:00 [facility] (Rec: 06/08/24 10:34 [facility] [id number]) Subjective Physical Therapy Visit Type Type Initial Evaluation Visit Start Time 09:00 Visit Stop Time 09:37 Number of PUMP OPERATOR Visits 0 Physical Therapy Visit Comments Patient Comments Pt is agreeable to PT. Therapy Pain Assessment Pain When Pain Assessed At Rest Pain Present Pain Present Pain Reported Location bilat breast Intensity 4 Scale Used Numeric (0 - 10) M4 PT-IP Mobility and Gait Start: 06/08/24 08:53 Freq: Status: Active Protocol: Document 06/08/24 09:00 [facility] (Rec: 06/08/24 10:34 [facility] [id number]) PT-Bed Mobility Assessment Rolling Type of Rolling Roll to Left Level of Assist Standby Assistance Supine to Sit Supine to Sit Standby Assistance Scooting Scooting to Edge of Bed Standby Assistance PT-Transfer Assessment Sit to and From Stand Sit to and from Stand Contact Guard Assistance Equipment Transfer Assistive Device Gait Belt,Straight Cane,Front Wheeled Walker Orthotic/Prosthetic Devices or Brace: No Transfers Transfer Destination Chair Transfer Technique Ambulation Transfer Ability Level of Assist Contact Guard Assistance Comments Mobility Comments Pt requires cues to bend legs and use lower body weight to help roll to side to sit up to avoid pushing too much with arms Gait Assessment Gait Gait Assistance Required: Standby Assistance,Contact Guard Assist Distance (Feet) 100 Able to Maintain Weight Bearing Status Yes During Gait Assistive Devices Assistive Device Gait Belt,Straight Cane,Front Wheeled Walker Orthotic/Prosthetic Devices or Brace: No Gait Deviations General Gait Pattern Decreased Stride Length, Decreased Feet Clearance,Wide Based Gait Factors Limiting Gait Function Factors Limiting Gait Function Abnormal Tonal Influences, Decreased Activity Tolerance, Difficulty Following Directions,Incoordination,Pain ,Poor Balance,Poor Safety Awareness Comments Gait Comments Pt gait is abnormal including wide CRISTÓBAL, decreased heel strike and toe push off and foot clearance, feet appear antalgic as far as stepping presentation and pt states she walks funny. Very unsteady and arms out to side without AD, does not use cane well, tried BOBBIN CLEANING MACHINE OPERATOR and finally RW and this is best option for pt Stair Climbing Assessment Evaluation Level of Assist On Stairs Minimal Assistance,1 Person Assistance Devices Stair Climbing Assistive Devices Straight Cane,Left Railing Technique/Endurance Stair Climbing Direction Ascend and Descend Stair Climbing Technique Step to Step Number of Steps Climbed 3 Query Text: Stair Climbing Set # Repetitions (reps) 2 Comments Stair Climbing Comments 3 steps with both hands on left rail and side stepping to practice 12 steps at home that have a rail and cues and CGA 3 steps with BOBBIN CLEANING MACHINE OPERATOR left hand and cane right hand and min A to practice 3 steps to enter home PT-Balance Assessment Sitting Balance and Reactions Static Sitting Balance Ability Good Dynamic Sitting Balance Ability Fair Standing Balance and Reactions Static Standing Balance Ability Fair Dynamic Standing Balance Ability Fair Device Used RW, BOBBIN CLEANING MACHINE OPERATOR Comments Other Balance Tests/Deviations/Treatment Cues to back up to chair and : reach back for it before sitting M5 PT-IP Objective Assessments Start: 06/08/24 08:53 Freq: Status: Active Protocol: Document 06/08/24 09:00 [facility] (Rec: 06/08/24 10:34 [facility] [id number]) Orientation Orientation/Cognition Level of Alertness Alert Orientation Name,Age,Birthday,Month,Date, Year,Day of Week,Place, Situation Language Function Ability No Deficits Noted Safety Awareness Decreased Safety Awareness Memory Description No Deficits Noted Gross Range of Motion Upper Extremity ROM Impairments Defer to OT Lower Extremity ROM Assessment Within Functional Limits Strength Comments Strength Comments MMT deferred with many events happening during assessment Coordination Assessment Gross Coordination Gross Coordination Impaired Sensation Assessment Comments Sensation Comments As above M6 PT-IP Treatment Start: 06/08/24 08:53 Freq: Status: Active Protocol: Document 06/08/24 09:00 [facility] (Rec: 06/08/24 10:34 MB [id number]) Physical Therapy Treatment Education Education Provided Safety Other Treatments Other Treatment Performed Dr. Bustamante nearby and reports pt shouldn't lift too much, more than 10-15 lbs and should stop any movement that hurts, ed pt to monitor UE edema and since she is B mastectomy, careful with BP measurements in UEs, ed pt in benefits of OPPT to improve range, pain and tissue post-op, ed pt in scapular retraction, posture, deep breathing, benefits of RW and obtained order and RW M7 PT-IP Assessment and Plan Start: 06/08/24 08:53 Freq: Status: Active Protocol: Document 06/08/24 09:00 [facility] (Rec: 06/08/24 10:34 MB [id number]) PT Summary Assessment and Plan Potential Rehabilitation Potential Good Status of Condition at Evaluation Evolving Summary Impairments Pain,ROM,Strength,Balance, Coordination,Sensation,Bed Mobility,Transfers,Gait, Activity Tolerance Assessment Summary Pt is a 63 y/o female s/p B mastectomies last date. Dr. Bustamante with pt upon arrival and states he would like pt to d/c today. Provided education and encouragement about mobility, precautions, what to think about at home and possible OPPT. Pt gait trains best with RW today and obtained order and walker for her to take home. Also, KAYLENE nearby for stair training. No further acute PT needs and pt will have assistance at home at d/c. Frequency of Treatment Frequency Of Treatment Discharge Precautions Other Precautions See above: careful with BP, no lifting greater than 10-[address] Bustamante verbally in room this a.m. Weight Bearing Status Allowed Weight Bearing Amount (enter % No WB restrictions for legs or #) (%) Recommendations To Nursing Amount of Assist Needed 1 Person Assist Discharge Recommendations PT Discharge Recommendations Home with 24/ Assist Available,Outpatient PT Transportation Needs at Discharge Private Vehicle
--- NOTE | 2024-06-08 11:29 | CM.DANOTE ---
Patient is a 63 yo female who was admitted [facility] on 06/07/24 for Bilateral Mastectomy. Pt has PRE DIM for insurance and her PCP is Dr. hSarlene Ely. EMR was reviewed. Per Surgeon, pt with L breast lumpectomy and now new left breast CA and admitted for planned bilateral mastectomy and pt tolerated procedure well and to discharge home today with outpt f/u. Per PT, pt ambulated halls well with walker and recommending d/c home with assist and FWW and outpt PT. SW met briefly bedside with pt, spouse, and adult Dtr and they confirm they live in [place] and pt is active and independent at baseline and drives and works and spouse and family can assist at d/c and preference is home today and no needs identified. Plan: Patient to d/c home today via family POV and outpt f/u and no further SW needs at this time. ISABELLA Guzmán Discharge Planning/Care Management Pre-Anesthesia Assessment Start: 06/05/24 09:06 Freq: Status: Active Protocol: Document 06/05/24 09:06 [facility] (Rec: 06/05/24 09:08 [facility] [id number]) Pre-Anesthesia Assessment PAC Comment Mari - art Mar-see-a Patient Information Reviewed Via Chart Review Primary Care Provider Sharlene Matamoros Seen Specialist in Last 12 Months Yes Specialist Seen General surgeon Primary Language North Korean Preferred Language North Korean Bottom Stainer Required No Height 152.4 cm Weight 90.718 kg Body Mass Index (BMI) 39.0 Hearing Ability Normal Visual Assist Glasses Dentition Type Teeth, Natural Present Barriers to Learning None Hx Anesthesia Reactions No Hx Family Anesthesia Reaction No Hx Malignant Hyperthermia No Hx Blood Transfusions No Anesthesia Review Requested No Collar Padder Blindstitch No alcohol intake current alcohol intake frequency 0-2 drinks per day Smoking Status Former smoker how long ago did patient quit smoking Quit 1996, smoked x 18 years Substance Use Type does not use Patient is completely paralyzed or No completely immobile Mental Status Oriented to own ability Is patient on oxygen? No Does patient have COLLAZO/SOB No Hx Sleep Apnea No Currently Taking a Beta Miryam No Can You Climb a Flight of Stairs Without No: I get a little short of SOB breath, thinks it due my weight Hx Chest Pain No Hx SOB No Hx Syncope or Dizziness No Anti-Coagulant Therapy No Cardiac Testing No Hx Pacemaker/ICD No Pacemaker Rep Required? No Cardiac Clearance Received No Bladder Pattern Incontinent, Stress Urinary Catheter Present No Hx Urinary Self Catheterization No Diabetes No Patient No Lactating No Hx Drug Resistant Organism No Presence of External or Internal Medical No Devices Marital Status Lives With spouse Patient Discharge Plan Description Return Home Do You Have Any Spiritual Beliefs That No May Affect Your HC Choices? Do You Have Any Cultural Practices That No May Affect Your HC Choices? Emergency Contact Name Diogo () Emergency Contact Advance Directives? No: Information mailed to patient Advance Directives on File No Power of Shirt Ironer No
--- NOTE | 2024-06-08 11:35 | PC.NURSE ---
Day shift: Discharge instructions gone over with patient and patient's family. Extensive teaching including return demonstration of drain care. All questions answered, patient stated understanding. PIV removed prior to discharge. All belongings with patient. SLAVA Roberts escorted patient via wheelchair to exit.
== END 2024-06-08 11:25 | disposition home or self-care (01) ==
LOC: OR 11:26 → AC 11:27
PROVIDERS: Family Provider Internal Medicine; PCP Student in an Organized Health Care Education/Training Program; Referring Provider Surgery; Visit Provider Surgery
PROC: 0HTU0ZZ Resection of Left Breast, Open Approach (ICD-10-PCS; CPT 19303; principal; 2024-06-07 13:15)
DX: C50.912 Malignant neoplasm of unspecified site of left female breast (principal); Z17.0 Estrogen receptor positive status [ER+]; Z40.01 Encounter for prophylactic removal of breast
CPT/HCPCS: 19303; 38525; 38792; 94760; 97161; 97166; 97530; 97535; A9541; J0136; J0690; J1100; J1170; J1650; J2060; J2250; J2405; J2704; J3010; Q9968

== ENCOUNTER → 2024-11-06 14:18 | Outpatient (CLI) | payer OTHER, SELFPAY ==
[2024-06-22 12:00] VITALS: BMI 38.0
--- NOTE | 2024-11-06 14:20 | DI.RAD.S_ITS ---
PROCEDURE: XR DEXA AXIAL SKELETON INDICATIONS: BREAST CANCER / OSTEOPENIA COMPARISON: [facility], [place], DEXA AXIAL SKELETON, 11/30/2016, 11:15. FINDINGS: Lumbar Spine: Bone mineral density 0.914 g/cm2, T score -1.2. Right Femoral Neck: Bone mineral density of 0.781 g/cm2, T score -0.6. Right Hip: Bone mineral density 0.897 g/cm2, T score -0.4. Fracture Risk Calculation (when applicable): 10-year fracture risk of a major osteoporotic fracture 7.7 percent and of a hip fracture 0.4 percent. (T score greater or equal to -1.0 to: NORMAL) (T score from -1.1 to -2.4: OSTEOPENIA) (T score less than or equal to -2.5: OSTEOPOROSIS) IMPRESSION: Osteopenia---recommend repeat DEXA in 3-4 years for reassessment. Dictated by: Leonel Red M.D. on 11/07/2024 at 14:38 Approved by: Leonel Red M.D. on 11/07/2024 at 14:43
== END ==
PROVIDERS: Family Provider Internal Medicine; PCP Student in an Organized Health Care Education/Training Program; Referring Provider Internal Medicine; Visit Provider Internal Medicine
DX: C50.912 Malignant neoplasm of unspecified site of left female breast (principal); Z17.0 Estrogen receptor positive status [ER+]; M85.88 Other specified disorders of bone density and structure, other site
CPT/HCPCS: 77080